=== PATIENT | female | born 1965 | race Caucasian/White ===

== ENCOUNTER → 2016-07-01 06:33 | Day surgery (SDC) | payer OTHER ==
[~2016-07-01 06:33] MED LIST: Buffered Lidocaine 1% SYR 3ML* 3 ML/SYR SYRINGE INTRADERM ONE; Bupivacaine 0.25% SDV* 30 ML ONE; Clindamycin 900 MG IVPREMIX(* 900 MG/50 ML SDV IV ONE; Dexamethasone IV* 4 MG/ML 1 ML (4 MG) ONE; DiMENhydriNATE IV* 50 MG/ML VIAL IV PUSH PRN; Famotidine IV* 10 MG/ML 2 ML (20 mg) IV ONE; Famotidine IV* 10 MG/ML 2 ML (20 mg) ONE; HYDROmorphone INJ* 1 MG/ML CARPUJECT SYRINGE IV PRN; KETAMINE HCL* 50 MG/ML 10 ML VIAL ONE; Ketorolac INJ* 30 MG/ML 1 ML VIAL ONE; Lidocaine 1% INJ* 10 MG/ML 30 ML SDV ONE; Lidocaine 2% PF * 5 ML VIAL ONE; Midazolam* 1 MG/ML 5 ML VIAL (5 MG) ONE; Ondansetron INJ* 2 MG/ML VIAL ONE; Propofol* 10 MG/ML 20 ML BTL IV PUSH ONE; fentaNYL* 50 MCG/ML 2 ML VIAL (100 MCG VIAL) ONE; oxyCODONE/Acetamin 5/325 MG* TAB ONE
[2016-07-01] MEDS: oxyCODONE/Acetamin 5/325 MG* TAB PO PRN ×2 (08:57→09:13)
[2016-07-01 09:17] VITALS: BP 100/67
--- NOTE | 2016-07-02 00:52 | OP ---
DATE OF OPERATION: 07/01/16 - [facility] DATE OF : 63 SURGEON: Jose L Benton DPM ANESTHESIOLOGIST: Heather Angel MD ANESTHESIA: MAC local. PRE-OP DIAGNOSIS: Right foot plantar fibromatosis. POST-OP DIAGNOSIS: Right foot plantar fibromatosis. OPERATIVE PROCEDURE: Release of right foot plantar fibromatosis. ESTIMATED BLOOD LOSS: Less than 10 cc. IV FLUIDS: LR 1000 cc. DRAINS: None. SPECIMENS: None. DESCRIPTION OF PROCEDURE: The patient was taken to the operating room, was placed in the supine position. Time-out was called and OR team agreed. The right foot was then blocked with 8 cc of 1% lidocaine plain at the level of the plantar medial aspect of the right foot. The foot was then prepped and draped in a sterile manner. The right foot was exsanguinated with an Esmarch bandage and the cuff was then inflated to 250 mmHg. Attention was then paid to the plantar aspect of the right foot. At the plantar medial aspect of the heel, I made a linear incision just anterior to the weightbearing surface of the plantar medial calcaneal tubercle. This was followed by sharp and blunt dissection down from the epidermis, dermis, subcutaneous tissue down to the deep fascia. Once I got into the deep fascia, I isolated the medial band of the deep fascia. I then proceeded to take a#15 blade and cutted at that level. I brought the transection down to the underlying muscle belly. Once the underlying muscle belly was in full view, the procedure was then deemed completed. The thickness of the fascia was noted at 8mm. The normal thickness is 4mm. I then irrigated the site. Closed the wound in layered anatomical fashion and injected postoperatively with 8 cc of 0.25% Marcaine plain and 8 mg of 2 cc of dexamethasone phosphate. The patient tolerated the procedure well, was discharged in stable condition. I will have her come back to my office in 3 days for postoperative check. [id number]/[facility] #: [id number] [facility]ITALIqra
== END | disposition home or self-care (01) ==
LOC: OREAST 06:33
PROVIDERS: ATTEND Podiatrist
PROC: 0JBQ0ZZ Excision of Right Foot Subcutaneous Tissue and Fascia, Open Approach (ICD-10-PCS; principal; 2016-07-01 07:45)
DX: M72.2 Plantar fascial fibromatosis (principal); E11.9 Type 2 diabetes mellitus without complications; I10 Essential (primary) hypertension; K21.9 Gastro-esophageal reflux disease without esophagitis; F32.9 Major depressive disorder, single episode, unspecified
CPT/HCPCS: A9270-GY; J1100; J1885; J2250; J2405; J2704; J3010

== ENCOUNTER 2016-08-01 14:37 | Emergency (ER) | payer OTHER ==
[2016-08-01] MEDS ORDERED: NS 0.9% 1000 ML* 1,000 ML IV ONE (15:39)
[2016-08-01 15:59] LABS: Hematocrit 36 % (35-47); Hemoglobin 11.8 g/dl (12.0-16.0); Mean Corpuscular HGB Conc 33 g/dl (31-36); Mean Corpuscular Hemoglobin 29 pg (27-31); Mean Corpuscular Volume 88 fL (80-97); Mean Platelet Volume 9 um3 (7.4-10.4); Red Blood Count 4.12 10^6/ul (4.0-5.4); Red Cell Distribution Width 13 % (10.5-15); White Blood Count 6.8 10^3/ul (3.5-10.8)
[2016-08-01] MEDS ORDERED: Acetaminophen TAB* 325 MG PO ONE (16:09)
[2016-08-01 16:18] LABS: Albumin 3.7 g/dL (3.2-5.2); BUN/Creatinine Ratio 13.5 (8-20); EGFR African American 78.5 (>60); Potassium 3.6 mmol/L (3.5-5.0); Total Bilirubin 0.2 mg/dL (0.2-1.0); Total Protein 6.7 g/dL (6.4-8.9)
--- NOTE | 2016-08-01 16:21 | RAD ---
INDICATION: Fall, altered mental status. COMPARISON: Comparison is made with a prior CT of the brain from October 12, 2015. TECHNIQUE: Contiguous axial sections of the brain were obtained from the skull base to the vertex without contrast. FINDINGS: The ventricles, cisterns and sulci are within normal limits. No significant focal abnormality or mass effect is seen. There is no evidence for hemorrhage. No significant focal osseous abnormality is seen. The visualized portion of the paranasal sinuses and mastoid air cells appear clear. IMPRESSION: NO EVIDENCE FOR ACUTE INTRACRANIAL ABNORMALITY.
--- NOTE | 2016-08-01 16:32 | RAD ---
INDICATION: Trauma, neck pain. COMPARISON: Comparison is made with a prior CT of the cervical spine from May 29, 2012. TECHNIQUE: Contiguous axial sections were obtained from the skull base through the T2 vertebra. Images were reconstructed in the sagittal and coronal planes. FINDINGS: There is straightening of the cervical spine with loss of the normal cervical lordosis. No prevertebral soft tissue swelling or fracture is seen. At the C5-C6 level there is [id number] disc space narrowing and mild posterior uncinate process spurring. No significant spinal canal or neural foraminal narrowing is seen. The remaining disc spaces appear maintained. No significant areas of spinal canal narrowing are noted. IMPRESSION: STRAIGHTENING OF THE CERVICAL SPINE, NO EVIDENCE FOR FRACTURE OR SUBLUXATION.
--- NOTE | 2016-08-01 16:57 | ED ---
I, Oh,Soohyun, scribed for Hanane Riggs MD on 08/01/16 at 1542 . Altered Mental Status - HPI Summary HPI Summary: LEVEL 5 CAVEAT secondary to AMS and memory loss. This 51 y/o female presents to ED for memory loss that was noted today. Pt was unable to recognize her daughter or any other children this morning, and concerned daughter decided to bring pt in. Daughter reports an unwitnessed fall 3 days ago where she was found on floor. Pt denies recalling the fall. Positive occipital ERICKSON and lightheaded dizziness. She does have remote history of similar episode, where she had a mechanical fall and suffered memory loss. PSHx includes left rotator cuff surgery. Primary care involves Dr. Nogueira. Pt lives with her brother. - History Of Current Complaint Chief Complaint: EDAltMentalStatus Stated Complaint: HEAD INJURY /MEMORY LOSS Time Seen by Provider: 08/01/16 15:26 Hx Obtained From: Family/Operator And Truck Driver - daughter present at bedside, Medical Records Hx From Patient Unobtainable Due To: Altered Mental Status - memory loss Onset/Duration: Still Present Timing: Constant Aggravating Factor(s): Unknown Alleviating Factor(s): Unknown Associated Signs And Symptoms: Positive: Dizziness, Headache - occipital, Recent Trauma - Allergies/Home Medications Allergies/Adverse Reactions: Allergies Allergy/AdvReac Type Severity Reaction Status Date / Time Penicillins [PCN] Allergy Unknown Rash Verified 07/06/16 15:34 Aripiprazole [From Abilify] AdvReac Intermediate TALKS FUNNY Verified 07/06/16 15:34 PMH/Surg Hx/FS Hx/Imm Hx Endocrine/Hematology History: Reports: Hx Diabetes - type II, controlled with diet, Hx Anemia - not during Denies: Hx Anticoagulant Therapy, Hx Thyroid Disease Cardiovascular History: Reports: Hx Hypertension - uses medication, well controlled, Hx Syncope Denies: Hx Congestive Heart Failure, Hx Coronary Artery Disease, Hx Embolism , Hx Pacemaker/ICD Respiratory History: Denies: Hx Asthma, Hx Chronic Obstructive Pulmonary Disease (COPD) GI History: Reports: Hx Gastroesophageal Reflux Disease Denies: Hx Ulcer History: Denies: Hx Renal Disease Musculoskeletal History: Reports: Hx Arthritis, Hx Back Problems - chronic low back pain, Hx Orthopedic Injury - left rotator cuff tear/repair, Hx Tendonitis, Other Musculoskeletal History - podiatric surgery right foot Sensory History: Reports: Hx Contacts or Glasses - glasses Denies: Hx Hearing Aid Opthamlomology History: Reports: Hx Contacts or Glasses - glasses Neurological History: Reports: Hx Headaches, Other Neuro Impairments/Disorders - POSSIBLE COMPLEX REGIONAL PAIN SYNDROME LEFT ARM Denies: Hx Dementia, Hx Seizures Psychiatric History: Reports: Hx Anxiety, Hx Depression, Hx Panic Disorder - ANXIETY Denies: Hx Eating Disorder, Hx of Violent Episodes Against Others, Hx Substance Abuse - Surgical History Surgery Procedure, Year, and Place: left rotator cuff repair Mar 2016 [facility], right rotator cuff repair 2010. CSections 1985,1987,1989 [facility]. Hysterectomy 1997 [facility]. Podiatric surgery right foot [facility] Hx Anesthesia Reactions: No - Immunization History Date of Tetanus Vaccine: UNK Date of Influenza Vaccine: UNK Infectious Disease History: Denies: Hx Hepatitis, Hx Human Immunodeficiency Virus (HIV), Traveled Outside the [place] in Last 30 Days - Family History Known Family History: Positive: Cardiac Disease - mom , of [place] 71y.o., Other - sister, BRCA 46 y.o. - Social History Alcohol Use: None Hx Substance Use: No Substance Use Type: Reports: None Substance Use Comment - Amount & Last Used: hydrocodone Hx Tobacco Use: No Smoking Status (MU): Never Smoked Tobacco Review of Systems - ROS Summary Review of Systems Summary: LEVEL 5 CAVEAT secondary to AMS and memory loss. Negative: Fever Negative: Chest Pain Negative: Shortness Of Breath Negative: Abdominal Pain Neurological: Other - Positive for memory loss. Positive lightheaded dizziness Positive: Headache - occipital ERICKSON All Other Systems Reviewed And Are Negative: No Physical Exam Triage Information Reviewed: Yes Vital Signs On Initial Exam: Initial Vitals Pulse Resp BP Pulse Ox 92 16 139/87 98 08/01/16 14:39 08/01/16 14:39 08/01/16 14:39 08/01/16 14:39 Vital Signs Reviewed: Yes Appearance: Positive: Well-Appearing, No Pain Distress Skin: Positive: Warm, Skin Color Reflects Adequate Perfusion, Dry Head/Face: Positive: Normal Head/Face Inspection Eyes: Positive: EOMI, KYLAH Neck: Positive: Supple, Nontender Respiratory/Lung Sounds: Positive: Clear to Auscultation, Breath Sounds Present Cardiovascular: Positive: RRR, Pulses are Symmetrical in both Upper and Lower Extremities Abdomen Description: Positive: Nontender, No Organomegaly Musculoskeletal: Positive: Strength/ROM Intact Neurological: Positive: Sensory/Motor Intact, Alert, Oriented to Person Place, Time, CN Intact II-III, Other - memory loss - unable to recall what she had for her breakfast this morning Psychiatric: Positive: Affect/Mood Appropriate AVPU Assessment: Alert Diagnostics - Vital Signs Vital Signs Pulse Resp BP Pulse Ox 08/01/16 14:39 92 16 139/87 98 - Laboratory Lab Results: Lab Results 08/01/16 08/01/16 08/01/16 Range/Units 15:50 15:50 15:50 WBC 6.8 (3.5-10.8) 10^3/ul RBC 4.12 (4.0-5.4) 10^6/ul Hgb 11.8 L (12.0-16.0) g/dl Hct 36 (35-47) % MCV 88 (80-97) fL MCH 29 (27-31) pg MCHC 33 (31-36) g/dl RDW 13 (10.5-15) % Plt Count 228 (150-450) 10^3/ul MPV 9 (7.4-10.4) um3 Neut % (Auto) 45.9 (38-83) % Lymph % (Auto) 43.3 (25-47) % [place] % (Auto) 7.1 (1-9) % Eos % (Auto) 2.8 (0-6) % Baso % (Auto) 0.9 (0-2) % Absolute Neuts (auto) 3.1 (1.5-7.7) 10^3/ul Absolute Lymphs (auto) 3.0 (1.0-4.8) 10^3/ul Absolute Monos (auto) 0.5 (0-0.8) 10^3/ul Absolute Eos (auto) 0.2 (0-0.6) 10^3/ul Absolute Basos (auto) 0.1 (0-0.2) 10^3/ul Absolute Nucleated RBC 0 10^3/ul Nucleated RBC % 0.1 ESR Pending Sodium 138 (133-145) mmol/L Potassium 3.6 (3.5-5.0) mmol/L Chloride 107 (101-111) mmol/L Carbon Dioxide 25 (22-32) mmol/L Anion Gap 6 (2-11) mmol/L BUN 13 (6-24) mg/dL Creatinine 0.96 H (0.51-0.95) mg/dL Est GFR ( Amer) 78.5 (>60) Est GFR (Non-Af Amer) 61.0 (>60) BUN/Creatinine Ratio 13.5 (8-20) Glucose 123 H (70-100) mg/dL Lactic Acid 1.3 (0.5-2.0) mmol/L Calcium 9.0 (8.6-10.3) mg/dL Total Bilirubin 0.20 (0.2-1.0) mg/dL AST 25 (13-39) U/L ALT 29 (7-52) U/L Alkaline Phosphatase 63 (34-104) U/L Total Protein 6.7 (6.4-8.9) g/dL Albumin 3.7 (3.2-5.2) g/dL Globulin 3.0 (2-4) g/dL Albumin/Globulin Ratio 1.2 (1-3) Result Diagrams: 08/01/16 15:50 08/01/16 15:50 Lab Statement: Any lab studies that have been ordered have been reviewed, and results considered in the medical decision making process. - CT Brain CT Interpretation: No Acute Changes CT Interpretation Completed By: Radiologist C-spine CT Interpretation: No Acute Changes - STRAIGHTENING OF THE CERVICAL SPINE, NO EVIDENCE FOR FRACTURE OR SUBLUXATION. CT Interpretation Completed By: Radiologist - EKG 1541 Cardiac Rate: NL EKG Rhythm: Sinus Rhythm ST Segment: Normal EKG Interpretation: Nonspecific T-wave changes EKG Comparison: No Significant Change - 10/12/2015 Altered Mental Statu Course/Dx - Course Course Of Treatment: 51 yo female with memory issues since a fall on Monday. the fall was unwitnessed but heard by her brother, pt remembers just after the fall but did not recognize her daughter or grand children today and can not remember the weekend. her ct brain is negative and labs are negative. her neuro exam is otherwise normal. She will be admitted to medicine and the case has been discussed with Dr. Pinto - Diagnoses Discharge Diagnoses: Concussion, Altered mental status - Provider Notifications Discussed Care Of Patient With: Dr. Pinto (Hospitalist) at 1619 PM Discharge - Discharge Plan Condition: Stable Disposition: ADMITTED TO [facility] documentation as recorded by the Arjun drew Soohyun accurately reflects the service I personally performed and the decisions made by me, Hanane Riggs MD.
[2016-08-01 17:28] LABS: Erythrocyte Sed Rate 28 mm/Hr (0-30)
--- NOTE | 2016-08-01 18:26 | CONSULT ---
Subjective Date of Service: 08/01/16 Interval History: 51 yo F with hx of HTN, DM, GERD, ?complex regional pain syndrome p/w memory problems after recent fall with head-injury. Patient unable to give reliable history, obtained mostly from daughter. 3 days ago in the evening the patient fell down the stairs in her home (16 steps ) injuring her shoulder and hitting her head. The fall was not witnessed but was heard by the patient's brother who found her shortly afterwards. She had no LOC, no reported seizure activity. The patient does not recall the fall. Since then she has been having trouble with memory, reportedly did not recognize her daughter or remember her name, did not remember her dogs at home but subsequently does now. The patient has had some dizziness, no nausea, or vomiting. Says for the past few days she has been resting at home. Has some R shoulder pain and headache but no other complaints at the moment. Daughter reports that 10-11 years ago the patient had a similar episode after a fall. Symptoms eventually resolved and she thought it may have been attributed to "stress". Family History: Findings - M - HTN Social History: Findings - Denies alcohol, tobacco or drug use. Lives home with brother Past Medical History: Findings - HTN, DM, GERD, CRPS Review of Systems - Measurements Intake and Output: Intake and Output Last 24 Hours 07/30/16 07/31/16 08/01/16 08/02/16 06:59 06:59 06:59 06:59 Weight 72.575 kg - Review of Systems General Comments: Unable to obtain due to amnesia Constitutional Symptoms: Positive: Fever Objective Vital Signs 08/01/16 08/01/16 14:39 15:31 Temperature 98.4 F Pulse Rate 92 92 Respiratory 16 16 Rate Blood Pressure 139/87 139/87 (mmHg) O2 Sat by Pulse 98 98 Oximetry Oxygen Devices in Use Now: None Appearance: Middle-aged, AAF, laying in bed in NAD Eyes: No Scleral Icterus, PERRLA Ears/Nose/Mouth/Throat: Mucous Membranes Moist Neck: NL Appearance and Movements; NL JVP Respiratory: Symmetrical Chest Expansion and Respiratory Effort, Clear to Auscultation Cardiovascular: NL Sounds; No Murmurs; No JVD, RRR Abdominal: NL Sounds; No Tenderness; No Distention Lymphatic: No Cervical Adenopathy Extremities: - - Slight RUE ecchymosis, impaired ROM due to pain in B/L UEs ( RUE from this injury, LUE from rotator cuff problems) Skin: No Rash or Ulcers, - Neurological: - - Alert, oriented to self (looked at ID), place "hospital, could not say name". Could not tell me city, address. Was able to name her daughter at the bedside Result Diagrams: 08/01/16 15:50 08/01/16 15:50 Assessment/Plan - Billing Memory difficulties after head trauma likely due to concussion in a 51 yo F with hx of HTN, DM, GERD, arthritis, CRPS. Patient's symptoms are likely due to concussion from significant head trauma she sustained falling down [address] of the head and CT of the c-spine are both normal. I think the best treatment at this point for the patient is bedrest and a quiet atmosphere which she is more likely to get at home than here in the hospital. The patient was recently started on long acting morphine ( 07/19) but did not have issues with it prior to the fall. I asked the daughter to try to hold off on any long acting pain medications the patient is on at home and instead treat only with short-acting if necessary as this will not help her confusion/memory problems. Should follow-up with PCP, Dr. Nogueira, later this week or early next week to track the patient's progress.
[2016-08-01 18:43] VITALS: BP 123/77
[2016-08-01 18:49] LABS: Urine Bilirubin Negative (Negative); Urine Glucose Negative (Negative); Urine Nitrite Negative (Negative)
--- NOTE | 2016-08-01 19:01 | RAD ---
INDICATION: Right humerus injury. TECHNIQUE: 2 views of the right humerus were obtained. FINDINGS: The bones are normal alignment. No fracture is seen. Postsurgical changes are noted in the proximal humerus. IMPRESSION: NO EVIDENCE FOR FRACTURE.
--- NOTE | 2016-08-01 19:01 | RAD ---
INDICATION: Right shoulder injury. TECHNIQUE: 3 views of the right shoulder were obtained. FINDINGS: The bones are normal alignment. There is a surgical screw present within the humeral head. There is deformity of the humerus in the region of the greater tuberosity likely chronic although a nondisplaced fracture cannot be excluded. Joint spaces appear maintained. IMPRESSION: DEFORMITY OF THE PROXIMAL HUMERUS IN THE REGION OF THE GREATER TUBEROSITY LIKELY CHRONIC ALTHOUGH A NONDISPLACED FRACTURE CANNOT BE RULED OUT.
[2016-08-01 19:15] LABS: Benzodiazepine Urine Screen Presumptive Positive (None Detect)
--- NOTE | 2016-08-01 20:21 | ED ---
I, Warner Díaz, scribed for Hanane Riggs MD on 08/01/16 at 1836 . Progress - Progress Note Progress Note: With advise from hospitalist Dr. Pinto, Pt is discharged with diagnosis of concussion. Pt is noted with tenderness over right tuberosity. Right shoulder and humerus X- rays were ordered. - Results/Orders Results/Orders: Right Shoulder X-ray -- DEFORMITY OF THE PROXIMAL HUMERUS IN THE REGION OF THE GREATER TUBEROSITY LIKELY CHRONIC ALTHOUGH A NONDISPLACED FRACTURE CANNOT BE RULED OUT. Right Humerus X-ray -- Negative fx. Re-Evaluation - Re-Evaluation First Eval Re-Evaluation Time: 19:04 Comment: MD in room to update pt and daughter on right shoulder X-ray result with possible hairline fracture. Daughter confirms that the pt has been tender at right shoulder. Pt is referred to Dr. Wilcox. Course/Dx - Course Course Of Treatment: 51 yo female with memory issues since a fall on Monday. the fall was unwitnessed but heard by her brother, pt remembers just after the fall but did not recognize her daughter or grand children today and can not remember the weekend. her ct brain is negative and labs are negative. her neuro exam is otherwise normal. She will be admitted to medicine and the case has been discussed with Dr. Pinto. Pt was subsequently evaluated by Dr. Peter Traore who diagnosed the pt with concussion and felt her safe for discharge. Pt sent home in an arm immobilizer for the non displaced fx for the great tubercle of the humerus and will f/u with her pmd and with her othopedist - Diagnoses Provider Diagnoses: Concussion, Altered mental status The documentation as recorded by the [email or web address] Soohyun accurately reflects the service I personally performed and the decisions made by me, Hanane Riggs MD.
== END 2016-08-01 18:42 | disposition home or self-care (01) ==
LOC: ED 14:37
DX: S06.0X0A Concussion without loss of consciousness, initial encounter (principal); R41.82 Altered mental status, unspecified; W19.XXXA Unspecified fall, initial encounter; Y93.9 Activity, unspecified; Y92.9 Unspecified place or not applicable
CPT/HCPCS: 36415; 70450; 72125; 80053; 80307; 81003; 83605; 85025; 85652; 86850; 86900; 86901; 93005; 99283; A9270-GY

== ENCOUNTER 2016-12-29 13:01 | Emergency (ER) | payer OTHER ==
[2016-12-29] MEDS ORDERED: NS 0.9% 1000 ML* 1,000 ML IV ONE (14:14)
--- NOTE | 2016-12-29 14:50 | RAD ---
HISTORY: Syncope, fall, altered mental status COMPARISONS: August 01, 2016 TECHNIQUE: Multiple contiguous axial CT scans were obtained of the cervical spine without intravenous contrast, with coronal and sagittal multiplanar reformations. FINDINGS: BRAIN: The visualized brain is unremarkable CENTRAL CANAL: Evaluation of the central canal is limited on CT technique, however there is no obvious canalicular mass or epidural hemorrhage. ALIGNMENT: The alignment is normal, without subluxation or dislocation. VERTEBRAL BODIES: There is anterolateral marginal osteophyte formation most pronounced at C5-C6 JOINTS: There is uncovertebral hypertrophy most pronounced at C5-C6. MUSCULATURE: Unremarkable INTERVERTEBRAL DISCS: There is diffuse loss of intervertebral disc height. AXIAL IMAGES: There is mild right neural foraminal area C5-C6. There is no osseous central canal stenosis. SOFT TISSUES: The visualized soft tissues of the neck are unremarkable. The prevertebral fat stripe is preserved. OTHER: None. IMPRESSION: MILD DEGENERATIVE DISC DISEASE AND OSTEOARTHRITIS. NO ACUTE OSSEOUS INJURY TO THE CERVICAL SPINE
[2016-12-29 14:51] LABS: Hematocrit 37 % (35-47); Mean Corpuscular HGB Conc 33 g/dl (31-36); Mean Corpuscular Hemoglobin 29 pg (27-31); Mean Corpuscular Volume 89 fL (80-97); Mean Platelet Volume 9 um3 (7.4-10.4); Red Blood Count 4.11 10^6/ul (4.0-5.4); Red Cell Distribution Width 13 % (10.5-15); White Blood Count 6.7 10^3/ul (3.5-10.8)
--- NOTE | 2016-12-29 14:56 | RAD ---
INDICATION: Syncope COMPARISON: CT brain August 01, 2016 TECHNIQUE: Noncontrast axial source images were acquired from the skull base to the vertex. FINDINGS: Ventricles/sulci: The ventricles and cisterns are normal in size and configuration for age. Brain parenchyma: There is no focal parenchymal finding, evidence of intracranial mass, or intracranial mass effect. Intracranial hemorrhage:None. Extra-axial spaces: There are no abnormal extra axial fluid collections or evidence of extra-axial mass. Calvarium: There is no calvarial fracture or other calvarial abnormality. Scalp: There is no evidence of scalp or extracalvarial soft tissue abnormality. Paranasal sinuses/mastoid: The paranasal sinuses and mastoid air cells are clear. Other: None. IMPRESSION: No acute intracranial findings or interval changes
[2016-12-29 15:06] LABS: ALT 18 U/L (7-52); AST 18 U/L (13-39); Albumin 3.8 g/dL (3.2-5.2); Alkaline Phosphatase 69 U/L (34-104); Ammonia 33 mol/L (16-53); Anion Gap 4 mmol/L (2-11); BUN/Creatinine Ratio 11.4 (8-20); Blood Urea Nitrogen 12 mg/dL (6-24); CO2 Carbon Dioxide 28 mmol/L (22-32); Calcium 9.3 mg/dL (8.6-10.3); Chloride 106 mmol/L (101-111); EGFR African American 70.8 (>60); Globulin 3.8 g/dL (2-4); Glucose 127 mg/dL (70-100); Potassium 3.8 mmol/L (3.5-5.0); Sodium 138 mmol/L (133-145); Total Protein 7.6 g/dL (6.4-8.9)
[2016-12-29 15:11] LABS: B Type Natriuretic Peptide 109 pg/mL
[2016-12-29 15:32] LABS: Alcohol < 10 mg/dL (<10)
[2016-12-29 15:35] LABS: TSH (Thyroid Stimulating Horm) 2.33 mcIU/mL (0.34-5.60)
--- NOTE | 2016-12-29 16:19 | RAD ---
Indication: Syncope. 2 views of the chest are reviewed and compared to previous exam dated October 12, 2015. No mediastinal shift is noted. Heart is of normal size and configuration. Lungs are clear. IMPRESSION: No active cardiopulmonary disease is identified.
--- NOTE | 2016-12-29 16:29 | RAD ---
INDICATION: Left greater than right bilateral shoulder pain COMPARISON: Right shoulder radiograph August 11, 2016 TECHNIQUE: 4 views of each shoulder were obtained. FINDINGS: A surgical medullary screw is seen overlying the right humeral head unchanged from the previous radiograph. The bones are otherwise adequately corticated and appropriately aligned. No radiographically apparent fracture or dislocation is seen. IMPRESSION: No radiographically apparent acute fracture or dislocation. If the patient's symptoms persist, follow-up imaging is recommended.
[2016-12-29 16:32] LABS: Urine Bilirubin Negative (Negative); Urine Glucose Negative (Negative); Urine Nitrite Negative (Negative)
[2016-12-29 16:46] LABS: Benzodiazepine Urine Screen Presumptive Positive (None Detect)
[2016-12-29 17:35] VITALS: BP 107/83
--- NOTE | 2016-12-29 18:40 | ED ---
James Lua Angela, scribed for Hernán Pedersen MD on 12/29/16 at 1444 . Altered Mental Status - HPI Summary HPI Summary: This pt is a 51 y/o female BIBA presenting to [facility] for AMS s/p fall and LOC. Per EMS, a neighbor witnessed the pt fall outside of her house. Pt c/o headache and low back pain. Additionally notes her left shoulder is very painful. Per brother, pt was feeling well upon waking up today. Per brother, pt has had these AMS symptoms a couple of times this year. Brother reports that she has forgetfulness episodes and temporary amnesia. Pt's PCP: Dr. Nogueira. Pt has had bilateral shoulder surgery. HPI IS LIMITED DUE TO LEVEL 5 CAVEAT - AMS - History Of Current Complaint Chief Complaint: EDAltMentalStatus Stated Complaint: FALL/AMS Hx Obtained From: Patient, Family/Physician/Ophthalmologist - brother and son Hx From Patient Unobtainable Due To: Altered Mental Status Onset/Duration: Still Present Timing: Lasting Hours Aggravating Factor(s): Nothing Alleviating Factor(s): Nothing Associated Signs And Symptoms: Positive: Headache - neck pain, shoulder pain, Recent Trauma - fall today outside her house - Allergies/Home Medications Allergies/Adverse Reactions: Allergies Allergy/AdvReac Type Severity Reaction Status Date / Time Penicillins [PCN] Allergy Unknown Rash Verified 09/28/16 15:06 Aripiprazole [From Abilify] AdvReac Intermediate TALKS FUNNY Verified 09/28/16 15:06 PMH/Surg Hx/FS Hx/Imm Hx Endocrine/Hematology History: Reports: Hx Diabetes - type II, controlled with diet, Hx Anemia - not during Denies: Hx Anticoagulant Therapy, Hx Thyroid Disease Cardiovascular History: Reports: Hx Hypertension - uses medication, well controlled, Hx Syncope Denies: Hx Congestive Heart Failure, Hx Coronary Artery Disease, Hx Embolism , Hx Pacemaker/ICD Respiratory History: Denies: Hx Asthma, Hx Chronic Obstructive Pulmonary Disease (COPD) GI History: Reports: Hx Gastroesophageal Reflux Disease Denies: Hx Ulcer History: Denies: Hx Renal Disease Musculoskeletal History: Reports: Hx Arthritis, Hx Back Problems - chronic low back pain, Hx Orthopedic Injury - left rotator cuff tear/repair, Hx Tendonitis, Other Musculoskeletal History - podiatric surgery right foot Sensory History: Reports: Hx Contacts or Glasses - glasses Denies: Hx Hearing Aid Opthamlomology History: Reports: Hx Contacts or Glasses - glasses Neurological History: Reports: Hx Headaches, Other Neuro Impairments/Disorders - POSSIBLE COMPLEX REGIONAL PAIN SYNDROME LEFT ARM Denies: Hx Dementia, Hx Seizures Psychiatric History: Reports: Hx Anxiety, Hx Depression, Hx Panic Disorder - ANXIETY Denies: Hx Eating Disorder, Hx of Violent Episodes Against Others, Hx Substance Abuse - Surgical History Surgery Procedure, Year, and Place: left rotator cuff repair Mar 2016 [facility] [place], right rotator cuff repair 2010. [facility] 1985,1987,1989 [facility]. Hysterectomy 1997 [facility] [place]. Podiatric surgery right foot [facility] Hx Anesthesia Reactions: No - Immunization History Date of Tetanus Vaccine: UNK Date of Influenza Vaccine: UNK Infectious Disease History: Denies: Hx Hepatitis, Hx Human Immunodeficiency Virus (HIV), Traveled Outside the [place] in Last 30 Days - Family History Known Family History: Positive: Cardiac Disease - mom , of [place] 71y.o., Other - sister, BRCA 46 y.o. - Social History Alcohol Use: None Hx Substance Use: No Substance Use Type: Reports: None Substance Use Comment - Amount & Last Used: hydrocodone Hx Tobacco Use: No Smoking Status (MU): Never Smoked Tobacco Have You Smoked in the Last Year: No Review of Systems Positive: Other - confusion, AMS. Negative: Fever, Chills ENT: Negative Positive: Other - back pain, and shoulder pain Skin: Negative Positive: Headache. Negative: Weakness, Paresthesia, Numbness All Other Systems Reviewed And Are Negative: Yes - Comments Additional Review of Systems Comments: ROS IS LIMITED DUE TO LEVEL 5 CAVEAT - AMS. Physical Exam - Summary Physical Exam Summary: VITAL SIGNS: Reviewed. GENERAL: Patient is a well-developed and nourished female who is lying comfortable in the stretcher. Patient is not in any acute respiratory distress. HEAD AND FACE: No signs of trauma. No ecchymosis, hematomas or skull depressions. No sinus tenderness. EYES: PERRLA, EOMI x 2, No injected conjunctiva, no nystagmus. EARS: Hearing grossly intact. Ear canals and tympanic membranes are within normal limits. MOUTH: Oropharynx within normal limits. NECK: Supple, trachea is midline, no adenopathy, no JVD, no carotid bruit, no c- spine tenderness, neck with full ROM. There is no neck tenderness. CHEST: Symmetric, no tenderness at palpation LUNGS: Clear to auscultation bilaterally. No wheezing or crackles. CVS: Regular rate and rhythm, S1 and S2 present, no murmurs or gallops appreciated. ABDOMEN: Soft, non-tender. No signs of distention. No rebound no guarding, and no masses palpated. Bowel sounds are normal. EXTREMITIES: No edema, no cyanosis or clubbing. There is bilateral shoulder tenderness to palpation. NEURO: Alert and oriented x 3. No acute neurological deficits. Speech is normal and follows commands. SKIN: Dry and warm GCS: 15 Triage Information Reviewed: Yes Vital Signs On Initial Exam: Initial Vitals Temp Pulse Resp BP Pulse Ox 99.1 F 80 20 130/91 100 12/29/16 14:38 12/29/16 14:38 12/29/16 14:38 12/29/16 14:38 12/29/16 14:38 Vital Signs Reviewed: Yes Completion Of Physical Exam Limited Due To: Altered Mental Status, Level 5 Diagnostics - Vital Signs Vital Signs Temp Pulse Resp BP Pulse Ox 12/29/16 17:35 98.6 F 79 19 107/83 12/29/16 15:30 79 15 131/82 100 12/29/16 15:00 75 18 125/76 98 12/29/16 14:46 77 13 99 12/29/16 14:45 77 13 99 12/29/16 14:41 99 12/29/16 14:38 99.1 F 80 20 130/91 100 - Laboratory Lab Results: Lab Results 12/29/16 12/29/16 12/29/16 Range/Units 14:42 14:42 14:42 WBC 6.7 (3.5-10.8) 10^3/ul RBC 4.11 (4.0-5.4) 10^6/ul Hgb 12.0 (12.0-16.0) g/dl Hct 37 (35-47) % MCV 89 (80-97) fL MCH 29 (27-31) pg MCHC 33 (31-36) g/dl RDW 13 (10.5-15) % Plt Count 224 (150-450) 10^3/ul MPV 9 (7.4-10.4) um3 Neut % (Auto) 52.2 (38-83) % Lymph % (Auto) 40.3 (25-47) % Bennett % (Auto) 4.8 (1-9) % Eos % (Auto) 1.6 (0-6) % Baso % (Auto) 1.1 (0-2) % Absolute Neuts (auto) 3.5 (1.5-7.7) 10^3/ul Absolute Lymphs (auto) 2.7 (1.0-4.8) 10^3/ul Absolute Monos (auto) 0.3 (0-0.8) 10^3/ul Absolute Eos (auto) 0.1 (0-0.6) 10^3/ul Absolute Basos (auto) 0.1 (0-0.2) 10^3/ul Absolute Nucleated RBC 0 10^3/ul Nucleated RBC % 0 Sodium 138 (133-145) mmol/L Potassium 3.8 (3.5-5.0) mmol/L Chloride 106 (101-111) mmol/L Carbon Dioxide 28 (22-32) mmol/L Anion Gap 4 (2-11) mmol/L BUN 12 (6-24) mg/dL Creatinine 1.05 H (0.51-0.95) mg/dL Est GFR ( Amer) 70.8 (>60) Est GFR (Non-Af Amer) 55.0 (>60) BUN/Creatinine Ratio 11.4 (8-20) Glucose 127 H (70-100) mg/dL Lactic Acid (0.5-2.0) mmol/L Calcium 9.3 (8.6-10.3) mg/dL Magnesium 2.0 (1.9-2.7) mg/dL Total Bilirubin 0.30 (0.2-1.0) mg/dL AST 18 (13-39) U/L ALT 18 (7-52) U/L Alkaline Phosphatase 69 (34-104) U/L Ammonia 33 (16-53) mol/L Troponin I 0.00 (<0.04) ng/mL B-Natriuretic Peptide 109 H ( - 100) pg/mL Total Protein 7.6 (6.4-8.9) g/dL Albumin 3.8 (3.2-5.2) g/dL Globulin 3.8 (2-4) g/dL Albumin/Globulin Ratio 1.0 (1-3) TSH 2.33 (0.34-5.60) mcIU/mL Urine Color Urine Appearance Urine pH (5-9) Ur Specific [place] (1.010-1.030) Urine Protein (Negative) Urine Ketones (Negative) Urine Blood (Negative) Urine Nitrate (Negative) Urine Bilirubin (Negative) Urine Urobilinogen (Negative) Ur Leukocyte Esterase (Negative) Urine Glucose (Negative) Urine Opiates Screen (None Detect) Ur Barbiturates Screen (None Detect) Ur Phencyclidine Scrn (None Detect) Ur Amphetamines Screen (None Detect) U Benzodiazepines Scrn (None Detect) Urine Cocaine Screen (None Detect) U Cannabinoids Screen (None Detect) Serum Alcohol < 10 (<10) mg/dL 12/29/16 12/29/16 12/29/16 Range/Units 14:42 16:15 16:15 WBC (3.5-10.8) 10^3/ul RBC (4.0-5.4) 10^6/ul Hgb (12.0-16.0) g/dl Hct (35-47) % MCV (80-97) fL MCH (27-31) pg MCHC (31-36) g/dl RDW (10.5-15) % Plt Count (150-450) 10^3/ul MPV (7.4-10.4) um3 Neut % (Auto) (38-83) % Lymph % (Auto) (25-47) % Bennett % (Auto) (1-9) % Eos % (Auto) (0-6) % Baso % (Auto) (0-2) % Absolute Neuts (auto) (1.5-7.7) 10^3/ul Absolute Lymphs (auto) (1.0-4.8) 10^3/ul Absolute Monos (auto) (0-0.8) 10^3/ul Absolute Eos (auto) (0-0.6) 10^3/ul Absolute Basos (auto) (0-0.2) 10^3/ul Absolute Nucleated RBC 10^3/ul Nucleated RBC % Sodium (133-145) mmol/L Potassium (3.5-5.0) mmol/L Chloride (101-111) mmol/L Carbon Dioxide (22-32) mmol/L Anion Gap (2-11) mmol/L BUN (6-24) mg/dL Creatinine (0.51-0.95) mg/dL Est GFR ( Amer) (>60) Est GFR (Non-Af Amer) (>60) BUN/Creatinine Ratio (8-20) Glucose (70-100) mg/dL Lactic Acid 1.3 (0.5-2.0) mmol/L Calcium (8.6-10.3) mg/dL Magnesium (1.9-2.7) mg/dL Total Bilirubin (0.2-1.0) mg/dL AST (13-39) U/L ALT (7-52) U/L Alkaline Phosphatase (34-104) U/L Ammonia (16-53) mol/L Troponin I (<0.04) ng/mL B-Natriuretic Peptide ( - 100) pg/mL Total Protein (6.4-8.9) g/dL Albumin (3.2-5.2) g/dL Globulin (2-4) g/dL Albumin/Globulin Ratio (1-3) TSH (0.34-5.60) mcIU/mL Urine Color Yellow Urine Appearance Clear Urine pH 5 (5-9) Ur Specific [place] 1.005 L (1.010-1.030) Urine Protein Negative (Negative) Urine Ketones Negative (Negative) Urine Blood Negative (Negative) Urine Nitrate Negative (Negative) Urine Bilirubin Negative (Negative) Urine Urobilinogen Negative (Negative) Ur Leukocyte Esterase Negative (Negative) Urine Glucose Negative (Negative) Urine Opiates Screen Presumptive positive H (None Detect) Ur Barbiturates Screen None detected (None Detect) Ur Phencyclidine Scrn None detected (None Detect) Ur Amphetamines Screen None detected (None Detect) U Benzodiazepines Scrn Presumptive positive H (None Detect) Urine Cocaine Screen None detected (None Detect) U Cannabinoids Screen None detected (None Detect) Serum Alcohol (<10) mg/dL Result Diagrams: 12/29/16 14:42 12/29/16 14:42 Lab Statement: Any lab studies that have been ordered have been reviewed, and results considered in the medical decision making process. - Radiology Chest XR Xray Interpretation: No Acute Changes - IMPRESSION: No acute cardiopulmonary disease is identified. ED physician has reviewed this radiology report and agrees. Radiology Interpretation Completed By: Radiologist Shoulder XR Xray Interpretation: No Acute Changes - IMPRESSION: No radiographically apparent acute fracture or dislocation. If the patient's symptoms persist, follow-up imaging is recommeneded. ED physician has reviewed this radiology report and agrees. Radiology Interpretation Completed By: Radiologist - CT Brain CT CT Interpretation: No Acute Changes - IMPRESSION: No acute intracranial findings or interval changes. ED physician has reviewed this radiology report and agrees. CT Interpretation Completed By: Radiologist Cervical spine CT CT Interpretation: Positive (See Comments) - IMPRESSION: Mild degenerative disc disease and osteoarthritis. No acute osseous injury to the cervical spine. ED physician has reviewed this radiology report and agrees. CT Interpretation Completed By: Radiologist - EKG 1454 Cardiac Rate: NL - 70 bpm EKG Rhythm: Sinus Rhythm ST Segment: Normal EKG Interpretation: Normal axis. No ST elevation. Altered Mental Statu Course/Dx - Course Assessment/Plan: This pt is a 51 y/o female BIBA presenting to [facility] for AMS s/ p fall and LOC. Per EMS, a neighbor witnessed the pt fall outside of her house. Pt c/o headache and low back pain. Additionally notes her left shoulder is very painful. Per brother, pt was feeling well upon waking up today. Per brother, pt has had these AMS symptoms a couple of times this year. Brother reports that she has forgetfulness episodes and temporary amnesia. Pt's PCP: Dr. Nogueira. Pt has had bilateral shoulder surgery. HPI IS LIMITED DUE TO LEVEL 5 CAVEAT - AMS. Test results are without any significant abnormalities. In the examination of the pt, the pt was alert and oriented x3, without any acute or focal neurological deficits. UA is negative for UTI. Toxicology is positive for opiates and benzodiazepines. Head CT is negative for an acute pathology. Chest XR is negative for acute pathology. XR of shoulders shows no acute fracture or dislocation. In the ED course, the pt was observed, and was alert and oriented x3. Pt is tolerating PO intake without any nausea and vomiting. I believe her symptoms are secondary to opiates and benzodiazepines abuse. Therefore, the pt will be discharged home with follow up from her PCP. At discharge, the pt is ambulating with a steady gait. - Diagnoses Differential Diagnosis/HQI/PQRI: Hypoglycemia, Intoxication, Metabolic Disorder , Postictal State, Seizure, TIA Discharge Diagnoses: Episode of syncope, Polysubstance abuse Discharge - Discharge Plan Condition: Stable Disposition: HOME Patient Education Materials: Syncope (ED), Polysubstance Abuse (ED) Referrals: Gera Nogueira MD [Primary Care Provider] - Additional Instructions: Please follow up with your primary care provider. The documentation as recorded by the James drew Angela accurately reflects the service I personally performed and the decisions made by me, Hernán Pedersen MD.
== END 2016-12-29 17:35 | disposition home or self-care (01) ==
LOC: ED 13:01
DX: R55 Syncope and collapse (principal); F19.10 Other psychoactive substance abuse, uncomplicated; K21.9 Gastro-esophageal reflux disease without esophagitis; F41.9 Anxiety disorder, unspecified; Z88.0 Allergy status to penicillin; E11.9 Type 2 diabetes mellitus without complications; I10 Essential (primary) hypertension
CPT/HCPCS: 36415; 70450; 71020; 72125; 80053; 80307; 80320; 81003; 82140; 83605; 83735; 83880; 84443; 84484; 85025; 93005; 96360; 99283; G0480

== ENCOUNTER 2017-04-04 19:25 | Inpatient (IN) | payer OTHER ==
--- NOTE | 2017-04-04 20:40 | RAD ---
INDICATION: Seizure. COMPARISON: Comparison is made with a prior CT of the brain from December 29, 2016. TECHNIQUE: Contiguous axial sections of the brain were obtained from the skull base to the vertex without contrast. FINDINGS: The ventricles, cisterns and sulci are within normal limits. No significant focal abnormality or mass effect is seen. There is no evidence for hemorrhage. No significant focal osseous abnormality is seen. The visualized portion of the paranasal sinuses and mastoid air cells appear clear. IMPRESSION: NO EVIDENCE FOR ACUTE INTRACRANIAL ABNORMALITY.
[2017-04-04 21:05] LABS: Urine Appearance Clear; Urine Blood Negative (Negative); Urine Color Yellow; Urine Ketones Negative (Negative); Urine Protein Negative (Negative); Urine Specific Gravity 1.014 (1.010-1.030); Urine Urobilinogen Negative (Negative)
[2017-04-04] MEDS ORDERED: levETIRAcetam IV* 1,000 MG in NS 0.9% 100 ML* 100 ML IVPB ONE (21:05)
[2017-04-04 21:12] LABS: ABS Basophils 0.1 10^3/ul (0-0.2); ABS Eosinophils 0.1 10^3/ul (0-0.6); ABS Lymphocytes 3.4 10^3/ul (1.0-4.8); ABS Monocytes 0.3 10^3/ul (0-0.8); ABS Neutrophils 2.9 10^3/ul (1.5-7.7); ABS Nucleated RBC 0 10^3/ul; Eosinophil % 1.4 % (0-6); Hematocrit 38 % (35-47); Hemoglobin 12.5 g/dl (12.0-16.0); Lymphocyte % 50.2 % (25-47); Mean Corpuscular HGB Conc 33 g/dl (31-36); Mean Corpuscular Hemoglobin 29 pg (27-31); Mean Corpuscular Volume 88 fL (80-97); Mean Platelet Volume 9 um3 (7.4-10.4); Nucleated Red Blood Cells % 0; Platelet Count 220 10^3/ul (150-450); Red Blood Count 4.31 10^6/ul (4.0-5.4); Red Cell Distribution Width 13 % (10.5-15); White Blood Count 6.7 10^3/ul (3.5-10.8)
[2017-04-04 21:20] LABS: INR 0.88 (0.77-1.02)
[2017-04-04 21:27] LABS: EGFR Non-African American 57.3 (>60)
--- NOTE | 2017-04-04 21:37 | ED ---
Kevin Lua Tecjoon, scribjamel for Mary Keenan MD on 04/04/17 at 2044 . Neurological HPI - HPI Summary HPI Summary: This patient is a 52 year old female BIBA to [facility] accompanied by daughter with a chief complaint of episodes of absence seizures since 3 days ago. Patients daughter states she has no recollection of whats going on and spaces out for periods of 5-15 minutes. During episodes, she is unable to respond. This occurs 2-3 times a day. During time of visit, patient is mildly confused, talking normally, but unable to recall current year and home address. Patient rates her current pain at 3/10. Symptoms aggravated by nothing. Symptoms alleviated by nothing. Patient additionally reports shoulder pain from previous injury. Patient denies dizziness. 5 months ago, patient suffered a bad concussion and has seen a neurologist as an outpatient before onset of sx. - History of Current Complaint Chief Complaint: EDSeizure Stated Complaint: RECENT SEIZURES Time Seen by Provider: 04/04/17 19:55 Hx Obtained From: Patient, Family/Acid Pumper - daughter Onset/Duration: Started days ago, Still Present Timing: Intermittent Episodes Lasting: - 5-15 minutes Pain Intensity: 3 Pain Scale Used: 0-10 Numeric Character: Impaired Speech, Confusion Syncope Context: Witnessed - by daughter Seizure Character: Generalized - absense Aggravating: Nothing Alleviating: Nothing Associated Signs and Symptoms: Positive: Memory Loss, Impaired Speech, Trauma: Remote - concussion 5 months ago. Negative: Dizziness - Allergy/Home Medications Allergies/Adverse Reactions: Allergies Allergy/AdvReac Type Severity Reaction Status Date / Time Penicillins [PCN] Allergy Unknown Rash Verified 02/08/17 14:24 Aripiprazole [From Abilify] AdvReac Intermediate TALKS FUNNY Verified 02/08/17 14:24 PMH/Surg Hx/FS Hx/Imm Hx Previously Healthy: No Endocrine/Hematology History: Reports: Hx Diabetes - type II, controlled with diet, Hx Anemia - not during Denies: Hx Anticoagulant Therapy, Hx Thyroid Disease Cardiovascular History: Reports: Hx Hypertension - uses medication, well controlled, Hx Syncope Denies: Hx Congestive Heart Failure, Hx Coronary Artery Disease, Hx Embolism , Hx Pacemaker/ICD Respiratory History: Denies: Hx Asthma, Hx Chronic Obstructive Pulmonary Disease (COPD) GI History: Reports: Hx Gastroesophageal Reflux Disease Denies: Hx Ulcer History: Denies: Hx Renal Disease Musculoskeletal History: Reports: Hx Arthritis, Hx Back Problems - chronic low back pain, Hx Orthopedic Injury - left rotator cuff tear/repair, Hx Tendonitis, Other Musculoskeletal History - podiatric surgery right foot Sensory History: Reports: Hx Contacts or Glasses - glasses Denies: Hx Hearing Aid Opthamlomology History: Reports: Hx Contacts or Glasses - glasses Neurological History: Reports: Hx Headaches, Other Neuro Impairments/Disorders - POSSIBLE COMPLEX REGIONAL PAIN SYNDROME LEFT ARM Denies: Hx Dementia, Hx Seizures Psychiatric History: Reports: Hx Anxiety, Hx Depression, Hx Panic Disorder - ANXIETY Denies: Hx Eating Disorder, Hx of Violent Episodes Against Others, Hx Substance Abuse - Surgical History Surgery Procedure, Year, and Place: left rotator cuff repair Mar 2016 [facility] [place], right rotator cuff repair 2010. CSections 1985,1987,1989 [facility]. Hysterectomy 1997 [facility]. Podiatric surgery right foot [facility] Hx Anesthesia Reactions: No - Immunization History Date of Tetanus Vaccine: UNK Date of Influenza Vaccine: UNK Infectious Disease History: No Infectious Disease History: Denies: Hx Hepatitis, Hx Human Immunodeficiency Virus (HIV), Traveled Outside the [place] in Last 30 Days - Family History Known Family History: Positive: Cardiac Disease - mom , of [place] 71y.o., Other - sister, BRCA 46 y.o. - Social History Occupation: Unemployed Lives: With Family Alcohol Use: None Hx Substance Use: No Substance Use Type: Reports: None Substance Use Comment - Amount & Last Used: hydrocodone Hx Tobacco Use: No Smoking Status (MU): Never Smoked Tobacco Have You Smoked in the Last Year: No Review of Systems Negative: Fever Positive: Other - shoulder pain Neurological: Negative - dizziness, Other - during episodes: impaired speech, memory loss, absense seizure All Other Systems Reviewed And Are Negative: Yes Physical Exam - Summary Physical Exam Summary: VITAL SIGNS: Reviewed. GENERAL: Patient is a pale female who is lying comfortable in the stretcher. Patient is not in any acute respiratory distress. HEAD AND FACE: No signs of trauma. No ecchymosis, hematomas or skull depressions. No sinus tenderness. EYES: PERRLA, EOMI x 2, No injected conjunctiva, no nystagmus. EARS: Hearing grossly intact. Ear canals and tympanic membranes are within normal limits. MOUTH: Oropharynx within normal limits. NECK: Supple, trachea is midline, no adenopathy, no JVD, no carotid bruit, no c- spine tenderness, neck with full ROM. CHEST: Symmetric, no tenderness at palpation LUNGS: Clear to auscultation bilaterally. No wheezing or crackles. CVS: Regular rate and rhythm, S1 and S2 present, no murmurs or gallops appreciated. ABDOMEN: Soft, non-tender. No signs of distention. No rebound no guarding, and no masses palpated. Bowel sounds are normal. EXTREMITIES: Right hand shows swelling and erythema of right ring finger and ring proximal to swelling. NEURO: Alert and oriented x 2. Cannot recall year. Speech is normal and follows commands. SKIN: Dry and warm Triage Information Reviewed: Yes Vital Signs On Initial Exam: Initial Vitals Temp Pulse Resp BP Pulse Ox 97.1 F 77 15 117/73 100 04/04/17 19:34 04/04/17 19:34 04/04/17 19:34 04/04/17 19:34 04/04/17 19:34 Vital Signs Reviewed: Yes - Shad Coma Scale Coma Scale Total: 15 Diagnostics - Vital Signs Vital Signs Temp Pulse Resp BP Pulse Ox 04/04/17 19:38 79 14 98 04/04/17 19:36 117/73 04/04/17 19:34 97.1 F 77 15 117/73 100 - Laboratory Lab Results: Lab Results 04/04/17 04/04/17 04/04/17 Range/Units 20:46 20:55 20:55 WBC 6.7 (3.5-10.8) 10^3/ul RBC 4.31 (4.0-5.4) 10^6/ul Hgb 12.5 (12.0-16.0) g/dl Hct 38 (35-47) % MCV 88 (80-97) fL MCH 29 (27-31) pg MCHC 33 (31-36) g/dl RDW 13 (10.5-15) % Plt Count 220 (150-450) 10^3/ul MPV 9 (7.4-10.4) um3 Neut % (Auto) 42.7 (38-83) % Lymph % (Auto) 50.2 H (25-47) % [place] % (Auto) 4.1 (1-9) % Eos % (Auto) 1.4 (0-6) % Baso % (Auto) 1.6 (0-2) % Absolute Neuts (auto) 2.9 (1.5-7.7) 10^3/ul Absolute Lymphs (auto) 3.4 (1.0-4.8) 10^3/ul Absolute Monos (auto) 0.3 (0-0.8) 10^3/ul Absolute Eos (auto) 0.1 (0-0.6) 10^3/ul Absolute Basos (auto) 0.1 (0-0.2) 10^3/ul Absolute Nucleated RBC 0 10^3/ul Nucleated RBC % 0 INR (Anticoag Therapy) (0.77-1.02) Sodium 134 (133-145) mmol/L Potassium TNP Chloride 101 (101-111) mmol/L Carbon Dioxide 28 (22-32) mmol/L Anion Gap 5 (2-11) mmol/L BUN 16 (6-24) mg/dL Creatinine 1.01 H (0.51-0.95) mg/dL Est GFR ( Amer) 73.7 (>60) Est GFR (Non-Af Amer) 57.3 (>60) BUN/Creatinine Ratio 15.8 (8-20) Glucose 112 H (70-100) mg/dL Calcium 9.5 (8.6-10.3) mg/dL Magnesium 2.0 (1.9-2.7) mg/dL Total Bilirubin 0.30 (0.2-1.0) mg/dL AST TNP ALT 27 (7-52) U/L Alkaline Phosphatase 92 (34-104) U/L Total Protein 7.7 (6.4-8.9) g/dL Albumin 4.1 (3.2-5.2) g/dL Globulin 3.6 (2-4) g/dL Albumin/Globulin Ratio 1.1 (1-3) Urine Color Yellow Urine Appearance Clear Urine pH 5.0 (5-9) Ur Specific [place] 1.014 (1.010-1.030) Urine Protein Negative (Negative) Urine Ketones Negative (Negative) Urine Blood Negative (Negative) Urine Nitrate Negative (Negative) Urine Bilirubin Negative (Negative) Urine Urobilinogen Negative (Negative) Ur Leukocyte Esterase Trace H (Negative) Urine WBC (Auto) Absent (Absent) Urine RBC (Auto) Trace(0-2/hpf) (Absent) Ur Squamous Epith Cells Present H (Absent) Urine Bacteria Absent (Absent) Urine Glucose Negative (Negative) 04/04/17 Range/Units 20:55 WBC (3.5-10.8) 10^3/ul RBC (4.0-5.4) 10^6/ul Hgb (12.0-16.0) g/dl Hct (35-47) % MCV (80-97) fL MCH (27-31) pg MCHC (31-36) g/dl RDW (10.5-15) % Plt Count (150-450) 10^3/ul MPV (7.4-10.4) um3 Neut % (Auto) (38-83) % Lymph % (Auto) (25-47) % [place] % (Auto) (1-9) % Eos % (Auto) (0-6) % Baso % (Auto) (0-2) % Absolute Neuts (auto) (1.5-7.7) 10^3/ul Absolute Lymphs (auto) (1.0-4.8) 10^3/ul Absolute Monos (auto) (0-0.8) 10^3/ul Absolute Eos (auto) (0-0.6) 10^3/ul Absolute Basos (auto) (0-0.2) 10^3/ul Absolute Nucleated RBC 10^3/ul Nucleated RBC % INR (Anticoag Therapy) 0.88 (0.77-1.02) Sodium (133-145) mmol/L Potassium Chloride (101-111) mmol/L Carbon Dioxide (22-32) mmol/L Anion Gap (2-11) mmol/L BUN (6-24) mg/dL Creatinine (0.51-0.95) mg/dL Est GFR ( Amer) (>60) Est GFR (Non-Af Amer) (>60) BUN/Creatinine Ratio (8-20) Glucose (70-100) mg/dL Calcium (8.6-10.3) mg/dL Magnesium (1.9-2.7) mg/dL Total Bilirubin (0.2-1.0) mg/dL AST ALT (7-52) U/L Alkaline Phosphatase (34-104) U/L Total Protein (6.4-8.9) g/dL Albumin (3.2-5.2) g/dL Globulin (2-4) g/dL Albumin/Globulin Ratio (1-3) Urine Color Urine Appearance Urine pH (5-9) Ur Specific [place] (1.010-1.030) Urine Protein (Negative) Urine Ketones (Negative) Urine Blood (Negative) Urine Nitrate (Negative) Urine Bilirubin (Negative) Urine Urobilinogen (Negative) Ur Leukocyte Esterase (Negative) Urine WBC (Auto) (Absent) Urine RBC (Auto) (Absent) Ur Squamous Epith Cells (Absent) Urine Bacteria (Absent) Urine Glucose (Negative) Result Diagrams: 04/04/17 20:55 04/04/17 20:55 Lab Statement: Any lab studies that have been ordered have been reviewed, and results considered in the medical decision making process. - CT CT Brain CT Interpretation: No Acute Changes - IMPRESSION: NO EVIDENCE FOR ACUTE INTRACRANIAL ABNORMALITY. ED physician has reviewed this radiology report. CT Interpretation Completed By: Radiologist - EKG 2018 Cardiac Rate: NL EKG Rhythm: Sinus Rhythm - 76 BPM EKG Interpretation: NSR (76 BPM) Normal axis. Normal interval. No ischemic changes Course/Dx - Course Course Of Treatment: This patient is a 52 year old female BIBA to [facility] accompanied by daughter with a chief complaint of episodes of absence seizures since 3 days ago. Patients daughter states she has no recollection of whats going on and spaces out for periods of 5-15 minutes. During episodes, she is unable to respond. This occurs 2-3 times a day. During time of visit, patient is mildly confused, talking normally, but unable to recall current year and home address. An EKG, taken 2017, reveals NSR (76 BPM) Normal axis. Normal interval. No ischemic changes. CT Brain reveals, per radiologist, IMPRESSION: NO EVIDENCE FOR ACUTE INTRACRANIAL ABNORMALITY. ED physician has reviewed this radiology report. Bloodwork Obtained. Urinalysis Obtained. In the ED course the patient was given Keppra. We discussed patient care with Dr. Ceballos ( neurologist) at 2106 and they recommended patient be put on Keppra and recommended admittance to hospital. We discussed patient care with Dr. Ramirez ( Hospitalist) at 2129 and they agreed to admit the patient. Patient is diagnosed with Seizure. The patient is agreeable with this plan. - Differential Dx Differential Diagnoses Neuro: Positive: Seizure Disorder - Diagnoses Provider Diagnoses: Seizure disorder - Physician Notifications Discussed Care Of Patient With: Jovany Ceballos - neurologist Time Discussed With Above Provider: 21:07 - We discussed patient care with Dr. Ceballos (neurologist) at 2106 and they recommended patient be put on Keppra and recommended admittance to hospitallist. Instructed by Provider To: Admit As Inpatient - We discussed patient care with Dr. Ramirez (Hospitalist) at 2129 and they agreed to admit the patient. Admit/Transition Orders Completed By ED Provider: Yes Discharge - Discharge Plan Condition: Fair Disposition: ADMITTED TO [facility] Referrals: Gera Nogueira MD [Primary Care Provider] - Consult Consult: We discussed patient care with Dr. Ramirez (Hospitalist) at 2129 and they agreed to admit the patient. The documentation as recorded by the Kevin drew Tecjoon accurately reflects the service I personally performed and the decisions made by , Mary Keenan MD.
[2017-04-04] MEDS ORDERED: levETIRAcetam 500 MG IVPREMIX* 500 MG/100 ML BAG IV ONE ×2 (21:45→22:00)
[2017-04-04] MEDS ORDERED: oxyCODONE/Acetamin 5/325 MG* TAB PO ONE (21:47)
[2017-04-04] MEDS ORDERED: Morphine TAB Extended Release (*) 15 MG TAB.ER PO PRN (22:52)
[2017-04-04] MEDS ORDERED: Acetaminophen TAB* 325 MG PO PRN (22:55)
[2017-04-05] MEDS: oxyCODONE/Acetamin 5/325 MG* TAB PO PRN ×5 (00:46→23:42)
--- NOTE | 2017-04-05 01:29 | HP ---
CC: Dr. Nogueira * HISTORY AND PHYSICAL: DATE OF ADMISSION: 04/04/17 PRIMARY CARE PHYSICIAN: Dr. Nogueira. ATTENDING PHYSICIAN: Dr. Charles Ramirez * (dictation provided by Beronica Mustafa NP ). CHIEF COMPLAINT: Episodes of confusion with staring spells. HISTORY OF PRESENT ILLNESS: Ms. Brumfield is a 52-year-old female with a past medical history of hypertension, diet-controlled diabetes, multiple concussions with most recent concussion happened in July 2016 after falling down stairs. Since this fall in July, the patient has had confusion at times. He has also had memory loss. Patient's daughter notes that the patient will sometimes leave the home unexpectedly and wander to a neighbor's house and stand on the porch. The patient will have no recollection of these events. She also has poor memory. She has been described as having periods where she stares off in the space and is unresponsive. These episodes can last anywhere from 1 to 15 minutes. Patient's daughter feels that these episodes of staring and unresponsiveness have been increasing in frequency over the past 3 days. Where as before she might not have one every day, now she seemed to be having them 2 to 3 times a day. The patient was seen in consultation by Dr. William outpatient on 01/11/17. At that time, the patient scored quite poorly at that point on the MOCA and it was reported that scored poorly on the MMSE as well. Dr. William did not feel that her symptoms were all attributable to concussion and that possibly they were psychogenic and/or related to polypharmacy. Plans at that point were for her to be referred to Dr. Bennie Márquez, who is a clinical neuropsychologist in [place]. Patient's daughter reports that that appointment is scheduled for 05/29/16. They have been making an effort to try to have that moved up, but has not happened. The patient's workup in addition to the visit with Dr. William also included an EEG on 12/02/16 that was normal and a reported MRI from August 2016, which showed nonspecific foci of increased FLAIR signal compared to March 2008. In the emergency room, Ms. Brumfield had labs, which showed no acute abnormality. Her tox screen is positive for opiates and benzodiazepines, both of which she has prescribed. The case was reviewed with Dr. Ceballos, who recommend observation for EEG and possible MRI as well as Keppra loading. PAST MEDICAL HISTORY: 1. Hypertension. 2. Type 2 diabetes, diet controlled. 3. Chronic back pain. 4. x3. 5. Hysterectomy. 6. GERD. 7. History of right foot surgery. 8. History of 2 rotator cuff surgeries on the left shoulder, 1 rotator cuff surgery on right shoulder on 03/17/17 with injury after a fall in July 2016 down stairs. MEDICATIONS: 1. Meloxicam 7.5 mg p.o. daily. 2. Oxycodone/acetaminophen 5/325 one tab p.o. q.4 hours p.r.n. 3. Alprazolam 0.5 mg p.o. b.i.d. p.r.n. 4. Aspirin 81 mg p.o. daily. 5. Diltiazem XT 180 mg p.o. b.i.d. 6. Duloxetine DR 60 mg p.o. daily. 7. Lidocaine patch 5% one patch transdermally daily. 8. Lisinopril 10 mg p.o. daily. 9. Morphine ER 15 mg p.o. q.12 hours p.r.n. 10. Pregabalin 150 mg p.o. t.i.d. ALLERGIES: PENICILLIN and ARIPIPRAZOLE. FAMILY HISTORY: Patient reports her mother related to a heart attack in her 70s and dad related to prostate cancer at age 54. SOCIAL HISTORY: No report of alcohol, tobacco or drug use. Patient lives with her daughter, Salina, who is the healthcare proxy. REVIEW OF SYSTEMS: A 14-point review of systems was completed with Ms. Brumfield , all those not mentioned above were negative. PHYSICAL EXAMINATION GENERAL: Ms. Brumfield is sitting up on the bed. She is in no acute distress. Her daughter is at the bedside. VITAL SIGNS: Temperature 97.1, heart rate 82, respiratory rate 19, O2 saturation 98% on room air, and blood pressure 125/88. LUNGS: Clear to auscultation bilaterally with no accessory muscle use and good aeration. HEART: S1 and S2. No murmur, rub, gallop and regular. ABDOMEN: Soft, nontender with bowel sounds positive x4. EXTREMITIES: No cyanosis or edema. NEUROLOGIC: She is alert, she is oriented x3. She moves all extremities equally, although I am not able to assess well her right upper extremity as it is in a sling, splint status post a rotator cuff surgery. Her pupils are equal and reactive. Her extraocular movements are intact. Sensation is intact bilaterally. Her face is symmetrical. Speech is clear. She provides much of the history today. No confusion is noted. No episodes of staring were noted. SKIN: Patient has abrasion to her right ring finger where several rings had been removed over the past few days after her surgery including one ring that was removed today in the emergency room due to swelling. DIAGNOSTIC STUDIES/LAB DATA: WBC 6.7, hemoglobin 12.5, hematocrit 38, platelet count 220. INR 0.88. Sodium 134, potassium 3.9, chloride 101, serum bicarbonate 28, BUN 16, creatinine 1.01. Urine shows trace leuk esterase only, with no bacteria, no nitrites. Tox screen is positive for opiates and benzodiazepines. CT brain today shows no evidence for acute intracranial abnormality. EKG shows sinus rhythm with no evidence of ischemia and heart rate about 76. ASSESSMENT: Ms. Brumfield is a 52-year-old female with a past medical history of fall in July 2016 with reported concussion and injury to her right shoulder. She is now status post right rotator cuff surgery with Dr. Mcwilliams in [place] but she has had continued concern for confusion, memory loss and staring spells. Our concern today is for possible seizure activity. Our plans are for observation in the hospital for the followin. Staring spells with confusional episodes. I am concerned that perhaps the patient is having seizure activity. Dr. Ceballos has been consulted and he will be seeing the patient tomorrow. She has been loaded with Keppra in the emergency room. I have ordered an EEG for tomorrow. I will note that in the past the patient said she had difficulty with an EEG because of the weave in her hair preventing the placement of electrodes. I ordered the test and will see if the technicians can perform it tomorrow. Dr. Ceballos initially suggested ordering an MRI. However, on review of the outpatient record I note that she did have an MRI in August. I am not ordering that tonigh. However, if Dr. Ceballos would like to continue with MRI, that can be added on tomorrow. I do note the note from Dr. William that suggests that perhaps this is more psychogenic in origin or perhaps related to polypharmacy. I have, therefore, held her long-acting morphine, which she says she only takes on p.r.n. basis and she will have oxycodone available as needed for pain. 2. Chronic pain with right shoulder rotator cuff surgery. Plan to continue her Lyrica. I am holding the morphine as noted. She will have oxycodone 5/325 one to two tabs q.4 hours p.r.n. pain. 3. Anxiety. The patient will have alprazolam available p.r.n. 4. Diabetes. The patient is diet controlled. I do not plan to order blood glucoses at this time, but she will have a consistent carbohydrate diet. 5. Hypertension. Plan to continue lisinopril and Cardizem. Blood pressure is well controlled. 6. Depression and anxiety. Continue duloxetine. 7. Code status: Full code. 8. Disposition to medical floor. TIME SPENT: Approximately 60 minutes was spent on the admission of this patient , more than half that time spent with the patient at bedside reviewing the events leading up to this hospitalization, performing the physical examination, and reviewing my plan of care. BERONICA MUSTAFA NP [id number]/CPS #: [id number] TOYA
[2017-04-05] MEDS: Heparin VIAL(*) 5000 UNITS/ML VIAL (FIVE THOUSAND) SUBCUT SCH ×3 (05:38→21:52)
[2017-04-05] MEDS: ALPRAZolam TAB* 0.5 MG PO PRN ×2 (08:48→21:52)
[2017-04-05] MEDS: Pregabalin CAP(*) 50 MG PO SCH ×3 (08:51→19:57)
[2017-04-05] MEDS: DULoxetine DR CAP* 60 MG CAP.DR PO SCH (08:52)
[2017-04-05] MEDS: Aspirin EC Low Dose* 81 MG TAB.EC PO SCH (08:52)
[2017-04-05] MEDS: Diltiazem CD CAP* 180 MG PO SCH ×2 (08:52→19:59)
[2017-04-05] MEDS: Lisinopril TAB* 10 MG PO SCH (08:53)
[2017-04-05] MEDS: Lidocaine PATCH 5%* 1 PATCH TRANSDERM SCH ×2 (08:57→10:57)
[2017-04-05] MEDS: levETIRAcetam 500 MG IVPREMIX* 500 MG/100 ML BAG IV SCH ×2 (10:57→20:09)
--- NOTE | 2017-04-05 14:01 | PN ---
Subjective Date of Service: 04/05/17 Interval History: Patient seen and examined at bedside. Patient visibly unsteady on her feet and trying to get to the bathroom. Reports left shoulder pain. Unable to recall how she got to the hospital and why she is here. Occasionally stops mid speech and stared off, then finishes sentence. She is unable to recount alphabet without error, tell me her last name correctly or who is the president. Family History: Unchanged from Admission Social History: Unchanged from Admission Past Medical History: Unchanged from Admission Objective Active Medications: Acetaminophen (Tylenol Tab*) 650 mg PO Q6H PRN Alprazolam (Xanax Tab*) 0.5 mg PO BID PRN Aspirin (Aspirin Ec Low Dose*) 81 mg PO DAILY GISELLA Diltiazem HCl (Cardizem Cd Cap*) 180 mg PO BID GISELLA Duloxetine HCl (Cymbalta Cap*) 60 mg PO DAILY GISELLA Heparin Sodium (Porcine) (Heparin Vial(*)) 5,000 units SUBCUT Q8HR GISELLA Levetiracetam (Keppra Iv Premix*) 500 mg in 100 mls @ 400 mls/hr IV Q12H GISELLA Lidocaine (Lidoderm 5% Patch*) 1 patch TRANSDERM DAILY GISELLA Lisinopril (Prinivil Tab*) 10 mg PO DAILY GISELLA Morphine Sulfate (Ms Contin(*)) 15 mg PO Q12HR PRN Oxycodone/Acetaminophen (Percocet 5/325 Tab*) 1 tab PO Q4H PRN Oxycodone/Acetaminophen (Percocet 5/325 Tab*) 2 tab PO Q4H PRN Pharmacy Profile Note (Lidocaine Patch Remove*) 1 note PATCH OFF BEDTIME GISELLA Pregabalin (Lyrica Cap(*)) 150 mg PO TID GISELLA Vital Signs Temp Pulse Resp BP Pulse Ox 97.4 F 72 18 105/68 100 04/05/17 07:26 04/05/17 07:26 04/05/17 14:00 04/05/17 07:26 04/05/17 07:26 Oxygen Devices in Use Now: None Appearance: sitting up in bed, NAD Eyes: No Scleral Icterus, PERRLA Ears/Nose/Mouth/Throat: NL Teeth, Lips, Gums Neck: NL Appearance and Movements; NL JVP Respiratory: Symmetrical Chest Expansion and Respiratory Effort, Clear to Auscultation Cardiovascular: NL Sounds; No Murmurs; No JVD Abdominal: NL Sounds; No Tenderness; No Distention Extremities: No Edema Skin: No Rash or Ulcers, - - R arm in brace. Neurological: NL Muscle Strength and Tone, - - alert only oriented to self. Lines/Tubes/Other Access: Clean, Dry and Intact Peripheral IV Nutrition: Taking PO's Result Diagrams: 04/04/17 20:55 04/04/17 22:01 Additional Lab and Data: . Assess/Plan/Problems-Billing Pt is a 52 y/o F w/ hx of HTN, diabetes, hx of episodes of loss of consciousness which resulted in concussion in 07/2016 w/ a sequela of worsening confusion brought in for staring spells suspicious for seizure. - Patient Problems (1) Seizure Comment: Patient loaded with Keppra and start on BID Keppra. Confusion/staring spells seems worse this morning. Patient has seen Dr. William in the past who felt that there may be a psychogenic component and referred her to a neuropsychiatrist in [place]. Case discussed with Dr. Ceballos. MRI of brain ordered. EEG ordered yet patient will need weave removed to have EEG and patient refused. Will discuss with patient's daughter. Continue neurochecks and frequent reorientation. (2) Chronic pain Comment: Secondary to recent rotator cuff surgery. Long acting morphine on hold to see if narcotics were playing into worsening confusion. Continue Lyrica and PRN percocet. (3) Diabetes Comment: Consistent carb diet. (4) HTN (hypertension) Comment: Controlled with lisinopril and cardizem. (5) Anxiety and depression Comment: Continue duloxetine and PRN Xanax (6) DVT prophylaxis Comment: SQ Heparin (7) Full code status Status and Disposition: Change to Inpatient. Discharge home when stable.
--- NOTE | 2017-04-05 19:52 | RAD ---
INDICATION: Seizure, loss of consciousness. COMPARISON: Comparison is made with a prior MRI of the brain from July 10, [address] of the brain from April 04, 2017. TECHNIQUE: Sagittal T1, coronal T1 and T2, axial T1, T2, susceptibility, FLAIR and diffusion weighted images were obtained. FINDINGS: The ventricles, cisterns and sulci appear to be within normal limits. There are couple small foci of increased signal intensity on T2-weighted images in the subcortical white matter which appear similar to the prior exam and likely incidental. No other focal abnormality or mass effect is seen. No areas of restricted diffusion are present. There is no evidence for infarct or hemorrhage. The visualized portion of the paranasal sinuses and mastoid air cells appear clear. IMPRESSION: NEGATIVE EXAM.
[2017-04-05] MEDS: Lidocaine Patch REMOVE* 1 NOTE MISC PATCH OFF SCH (20:14)
--- NOTE | 2017-04-05 22:28 | CONS ---
CONSULTATION REPORT: DATE OF CONSULT: 04/05/17 PATIENT OF: Dr. Mustafa, Dr. Nogueira, and Dr. William. HISTORY OF PRESENT ILLNESS: This is a 52-year-old woman who is presenting with a 3 to 4 day history of frequent unresponsive staring spells that last 4 to 5 minutes. She has been staying with her daughter following a rotator cuff surgery on March 17. The daughter had not noticed any of these staring spells until the past few days as mentioned and she says the mom is fine afterwards, but during the spells she is unresponsive to her calling her and seems to be out of it. I asked her if she had any prior similar spells, the first the daughter said no and then the daughter said that when her mom wandered she would sometimes walk and appeared to be unresponsive and that that had been going on for a long time, but that was infrequent. There has been no history of abnormal movements or shaking episodes. She had seen Dr. William for concussion headache and confusion. She had fallen down 5 stairs in July of this year and may have been passed out for 2 to 3 minutes time and has been having some confusion since then. There was a normal EEG at that point and Dr. William was not sure whether her issues of memory loss were related to a head trauma or related to her anxiety and depression and she had sent her for physical therapy for her headaches. There has been no prior history of seizures. PAST MEDICAL HISTORY: Significant for hypertension, diabetes type 2, chronic back pain, x3, hysterectomy, GERD, right foot surgery, history of two rotator cuff surgeries. MEDICATIONS: On admission include: 1. Meloxicam 7.5 mg daily. 2. Oxycodone/acetaminophen 3/325 mg q.4 hours p.r.n. 3. Alprazolam 0.5 mg b.i.d. 4. Aspirin 81 mg daily. 5. Diltiazem 180 mg XT b.i.d. 6. Cymbalta 60 mg daily. 7. Lidocaine patch 5% one patch transdermally daily. 8. Lisinopril 10 mg daily. 9. Morphine 15 mg q.12 hours p.r.n. 10. Lyrica 150 mg t.i.d. ALLERGIES: She is allergic to PENICILLIN and ARIPIPRAZOLE. FAMILY HISTORY: The mother secondary to a heart attack and dad of prostate cancer. There is no history of alcohol or drug abuse. SOCIAL HISTORY: No tobacco. She lives with her daughter currently who is the healthcare proxy. REVIEW OF SYSTEMS: Negative in all 14 spheres other than the HPI. PHYSICAL EXAM: Temperature 97.9, pulse 81, respirations 18, blood pressure 111/ 67. She is alert and oriented with normal speech and comprehension. Cranial nerves II through XII were intact. Fundi were begin. Motor exam revealed normal tone, strength, and coordination. Sensation intact to light touch. Reflexes are 1 and equal with downgoing toes. Chest: Clear. Cardiovascular: Regular rate and rhythm. Abdomen is soft with positive bowel sounds. DIAGNOSTIC STUDIES/LAB DATA: Her head CT scan was normal. She has not had her MRI scan yet. EEG was delayed because she initially refused to have her. We have spoken to the family and daughter, who is going to take the leaf out and the EEG will be done. There has been no clear episodes today and she has been loaded on Keppra in the emergency room and he is now on 500 mg twice a day. Laboratories includes normal CBC, INR. CMP is abnormal only for creatinine of 1.01 and a glucose of 112. UA was normal other than trace leukocyte esterase. Opioids and benzodiazepines were positive on the urine toxin, but otherwise negative. IMPRESSION AND PLAN: It is unclear to me whether Alethea is having organic seizures or whether her staring spells are secondary to stress. These episodes have began in the past 4 days' time and are quite frequent. It is possible that she was having different, but significant episodes before this on an infrequent basis, but the history is somewhat unclear at this point in any event. She is not a good candidate for long-term Keppra use, although acutely if these were seizures, we will plan to get things under control. The plan is to get an MRI scan and EEG to assess her tendency towards seizures. If these are clearcut seizures, we may switch to another medicine such as Trileptal which may be a mood stabilizer. If there is no evidence of seizures, we may withdraw the Keppra and observe her in hospital and if she has repeated staring spells, may do some longer term monitoring. Dr. William will be back in the office tomorrow and I will discuss the case with her as well. Thank you for sharing her case. [id number]/[facility] #: [id number] TOYA
[2017-04-06] MEDS: oxyCODONE/Acetamin 5/325 MG* TAB PO PRN ×3 (05:38→15:13)
[2017-04-06] MEDS: Heparin VIAL(*) 5000 UNITS/ML VIAL (FIVE THOUSAND) SUBCUT SCH ×3 (05:39→21:53)
[2017-04-06] MEDS: levETIRAcetam 500 MG IVPREMIX* 500 MG/100 ML BAG IV SCH (09:27)
[2017-04-06] MEDS: Lidocaine PATCH 5%* 1 PATCH TRANSDERM SCH (09:29)
[2017-04-06] MEDS: Pregabalin CAP(*) 50 MG PO SCH ×3 (09:35→21:51)
[2017-04-06] MEDS: DULoxetine DR CAP* 60 MG CAP.DR PO SCH (09:35)
[2017-04-06] MEDS: Aspirin EC Low Dose* 81 MG TAB.EC PO SCH (09:36)
[2017-04-06] MEDS: Diltiazem CD CAP* 180 MG PO SCH ×2 (09:36→21:52)
[2017-04-06] MEDS: Lisinopril TAB* 10 MG PO SCH (09:36)
--- NOTE | 2017-04-06 10:57 | PN ---
Subjective Date of Service: 04/06/17 Interval History: Patient seen and examined at bedside. Deies fever, chills, shortness of breath, chest discomfort, N/V/D. Pt states that she is lightheaded when she is walking. Pt has been getting out of bed on her own and [facility] staff reports that her gait is very unsteady. Pt is unable to produce her full name, she read her name off her ID band. Unable to correctly recite the alphabet. Pt thinks that she is sharing a room somewhere and was unaware that she was at the hospital. She thought she was somewhere to go shopping. Family History: Unchanged from Admission Social History: Unchanged from Admission Past Medical History: Unchanged from Admission Objective Active Medications: Acetaminophen (Tylenol Tab*) 650 mg PO Q6H PRN Reason: PAIN Alprazolam (Xanax Tab*) 0.5 mg PO BID PRN Reason: ANXIETY Aspirin (Aspirin Ec Low Dose*) 81 mg PO DAILY [facility] Diltiazem HCl (Cardizem Cd Cap*) 180 mg PO BID [facility] Duloxetine HCl (Cymbalta Cap*) 60 mg PO DAILY [facility] Heparin Sodium (Porcine) (Heparin Vial(*)) 5,000 units SUBCUT Q8HR [facility] Levetiracetam (Keppra Iv Premix*) 500 mg in 100 mls @ 400 mls/hr IV Q12H [facility] Lidocaine (Lidoderm 5% Patch*) 1 patch TRANSDERM DAILY [facility] Lisinopril (Prinivil Tab*) 10 mg PO DAILY [facility] Morphine Sulfate (Ms Contin(*)) 15 mg PO Q12HR PRN Reason: PAIN Oxycodone/Acetaminophen (Percocet 5/325 Tab*) 1 tab PO Q4H PRN Reason: PAIN Oxycodone/Acetaminophen (Percocet 5/325 Tab*) 2 tab PO Q4H PRN Reason: PAIN Pharmacy Profile Note (Lidocaine Patch Remove*) 1 note PATCH OFF BEDTIME [facility] Pregabalin (Lyrica Cap(*)) 150 mg PO TID [facility] Vital Signs - 8 hr 04/06/17 04/06/17 04/06/17 05:38 09:35 09:43 Respiratory 18 16 16 Rate Oxygen Devices in Use Now: None Appearance: NAD, sitting up in bed Ears/Nose/Mouth/Throat: Mucous Membranes Moist Respiratory: Symmetrical Chest Expansion and Respiratory Effort, Clear to Auscultation Cardiovascular: NL Sounds; No Murmurs; No JVD, RRR Abdominal: NL Sounds; No Tenderness; No Distention Extremities: No Edema Skin: No Rash or Ulcers Neurological: NL Muscle Strength and Tone, - - Alert and Oriented to Person. Smile symetric, hand museum host/hostess equal, strong dorsi and plantar flex. Lines/Tubes/Other Access: Clean, Dry and Intact Peripheral IV - site benign Nutrition: Taking PO's Result Diagrams: 04/04/17 20:55 04/04/17 22:01 Assess/Plan/Problems-Billing Ms. Brumfield is a 52 y/o F w/ hx of HTN, diabetes, hx of episodes of loss of consciousness which resulted in concussion in 07/2016 w/ a sequela of worsening confusion who presented to the emergency room for staring spells suspicious for seizure. - Patient Problems (1) Seizure Code(s): R56.9 - UNSPECIFIED CONVULSIONS SNOMED Code(s): 83081775 Comment: - Confusion/staring spells seems worse this morning. - Patient has seen Dr. William in the past who felt that there may be a psychogenic component and referred her to a neuropsychiatrist in [place]. - Dr. Ceballos consulted, input appreciated. - MRI of brain negative. - EEG completed last evening, read pending. - Continue neurochecks and frequent reorientation. - Continue BID Keppra. (2) Chronic pain Code(s): G89.29 - OTHER CHRONIC PAIN SNOMED Code(s): 59136132 Comment: - Secondary to recent rotator cuff surgery. - Long acting morphine on hold to see if narcotics were playing into worsening confusion. - Continue Lyrica and PRN percocet. (3) Diabetes Code(s): E11.9 - TYPE 2 DIABETES MELLITUS WITHOUT COMPLICATIONS SNOMED Code(s) : 64483502 Comment: - Consistent carb diet. (4) Anxiety and depression Code(s): F41.8 - OTHER SPECIFIED ANXIETY DISORDERS SNOMED Code(s): 563039555 Comment: - Continue duloxetine and PRN Xanax (5) HTN (hypertension) Code(s): I10 - ESSENTIAL (PRIMARY) HYPERTENSION SNOMED Code(s): 54389210 Comment: - Normotensive. - Controlled with lisinopril and cardizem. (6) DVT prophylaxis Code(s): XKI2624 - SNOMED Code(s): 668861312 Comment: - SQ Heparin (7) Full code status Code(s): Z78.9 - OTHER SPECIFIED HEALTH STATUS SNOMED Code(s): 561115050 Status and Disposition: Inpatient. Discharge home when stable.
[2017-04-06] MEDS: ALPRAZolam TAB* 0.5 MG PO PRN (11:14)
--- NOTE | 2017-04-06 16:58 | EEG ---
ELECTROENCEPHALOGRAPHY: DATE OF STUDY: 04/05/17 - ROOM #ICU-01 DATE OF DICTATION: 04/06/17 CLINICAL PROBLEM: This is a 52-year-old patient of Osiris Salgado's and Dr. William' s who is being evaluated for new onset of frequent starring spells lasting up to 5 minutes in the past several days' time. There is prior episode of confusion. MEDICATIONS: Include; 1. MS Contin. 2. Percocet. 3. Xanax. 4. Lidocaine. 5. Heparin. 6. Lyrica. 7. Prinivil. 8. Lidoderm. 9. Keppra. 10. Cymbalta. 11. Cardizem. 12. Aspirin. REPORT: With the patient awake, background cerebral activity consists of moderate amplitude posterior dominant 9 Hz rhythm. With the patient drowsy, there is slowing to theta range. There is a single instance of theta activity during drowsiness where this theta activity is more prominent in the left posterior temporal area than the right. This finding is of unclear clinical significance. No clear-cut epileptiform potentials, focal abnormalities or major asymmetries of background are noted. CLINICAL IMPRESSION: This awake and drowsy EEG shows no epileptiform potentials. There is persistent and consistent asymmetries of background. [id number]/[facility] #: [id number] [facility]
[2017-04-06] MEDS: CMCS: Meloxicam(NF) 7.5 MG TAB PO SCH (17:32)
[2017-04-06] MEDS: Lidocaine Patch REMOVE* 1 NOTE MISC PATCH OFF SCH (21:55)
[2017-04-07] MEDS: oxyCODONE/Acetamin 5/325 MG* TAB PO PRN ×4 (05:30→20:06)
[2017-04-07] MEDS: ALPRAZolam TAB* 0.5 MG PO PRN ×2 (05:30→21:15)
[2017-04-07] MEDS: Heparin VIAL(*) 5000 UNITS/ML VIAL (FIVE THOUSAND) SUBCUT SCH ×3 (06:03→21:16)
[2017-04-07] MEDS: Pregabalin CAP(*) 50 MG PO SCH ×2 (08:21→13:58)
[2017-04-07] MEDS: CMCS: Meloxicam(NF) 7.5 MG TAB PO SCH (08:22)
[2017-04-07] MEDS: Diltiazem CD CAP* 180 MG PO SCH ×2 (08:22→21:15)
[2017-04-07] MEDS: Aspirin EC Low Dose* 81 MG TAB.EC PO SCH (08:22)
--- NOTE | 2017-04-07 08:50 | EEG ---
PRISON VIDEO/EEG MONITORING - Monitoring Monitoring Start Date: 04/06/17 Current Monitoring Session: 04/06/17 at 14:53 to 04/07/17 at 12:53 EEG Clinical Indication: Alethea Brumfield is a 52 year old woman with a history of concussion more than 6 months ago who has been having mental status changes. She has been found wandering outside, not knowing why she is there. She has also more recently been having episodes of staring and unresponsiveness, which are new. Her family brought her to the ER due to these spells and Keppra was started initially. She had an additional spell while hospitalized and long-term video EEG monitoring was requested in order to characterize these events. Keppra was discontinued. Introduction: INTRODUCTION: The EEG was monitored from 21 scalp electrodes. Nineteen electrodes consisted of the standard parasagittal, temporal and midline leads of the International 10 -20 system. In addition, special electrodes T1 and T2 were placed. EEG data were recorded on an [employer] system with simultaneous MPEG-4 digital video recording of patient behavior. EEG recording was in a monopolar montage with all electrodes referenced to FCz. Significant behavioral events were signaled by an event button, or putative electrical seizure events were detected by a computer program. All EEG data were reviewed in their entirety on a monitor with reconstruction of montages and adjustments of sensitivity and filtering. Simultaneous patient behavior was viewed on an adjacent monitor and correlated with the EEG. - Medications Active Medications: Acetaminophen (Tylenol Tab*) 650 mg PO Q6H PRN PRN Reason: PAIN Alprazolam (Xanax Tab*) 0.5 mg PO BID PRN PRN Reason: ANXIETY Last Admin: 04/07/17 05:30 Dose: 0.5 mg Aspirin (Aspirin Ec Low Dose*) 81 mg PO DAILY [facility] Last Admin: 04/07/17 08:22 Dose: 81 mg Diltiazem HCl (Cardizem Cd Cap*) 180 mg PO BID [facility] Last Admin: 04/07/17 08:22 Dose: 180 mg Duloxetine HCl (Cymbalta Cap*) 60 mg PO DAILY [facility] Last Admin: 04/06/17 09:35 Dose: 60 mg Heparin Sodium (Porcine) (Heparin Vial(*)) 5,000 units SUBCUT Q8HR [facility] Last Admin: 04/07/17 06:03 Dose: Not Given Lidocaine (Lidoderm 5% Patch*) 1 patch TRANSDERM DAILY [facility] Last Admin: 04/06/17 09:29 Dose: 1 patch Lisinopril (Prinivil Tab*) 10 mg PO DAILY [facility] Last Admin: 04/06/17 09:36 Dose: 10 mg Meloxicam (Mobic(Nf)) 7.5 mg PO DAILY [facility] Last Admin: 04/07/17 08:22 Dose: 7.5 mg Morphine Sulfate (Ms Contin(*)) 15 mg PO Q12HR PRN PRN Reason: PAIN Oxycodone/Acetaminophen (Percocet 5/325 Tab*) 1 tab PO Q4H PRN PRN Reason: PAIN Last Admin: 04/05/17 08:49 Dose: 1 tab Oxycodone/Acetaminophen (Percocet 5/325 Tab*) 2 tab PO Q4H PRN PRN Reason: PAIN Last Admin: 04/07/17 05:30 Dose: 2 tab Pharmacy Profile Note (Lidocaine Patch Remove*) 1 note PATCH OFF BEDTIME [facility] Last Admin: 04/06/17 21:55 Dose: 1 note Pregabalin (Lyrica Cap(*)) 150 mg PO TID [facility] Last Admin: 04/07/17 08:21 Dose: 150 mg - Description Background: The waking background showed appropriate organization with clearly defined anterior-posterior voltage and frequency gradients. There was a defined posterior dominant rhythm of 9 Hertz, which was symmetrical and showed normal reactivity. Anteriorly, there was the expected pattern of lower voltage and more irregular theta and beta rhythms. There was excess beta activity present predominantly frontocentrally. The sleep background was appropriately organized with well-developed spindles and vertex waves indicative of stage 2 sleep. These sleep transients showed appropriate morphology and were bilaterally synchronous and symmetrical. Development of diffuse delta range frequencies with dropout of stage 2 architecture accompanied transition to slow wave sleep, and a lower voltage mixed frequency pattern associated with eye movements was consistent with REM sleep. Intericatal Epileptiform Activity: No epileptiform abnormalities were recorded. Ictal Activity: At 18:06, the patient was eating dinner when she pressed the nurse call button. She then took a deep breath and sat motionless. Thirty seconds later, the nurse entered the room and asked if there was something she could help with. There was no response from the patient. Staff called the patient's name multiple times and she gave no response. She was asked to stick out her tongue but did not respond. Her eyes were closed. The event button was pressed at 18:08:51. About 2.5 minutes after the nurses entered the room, she opened her eyes and began responding, but her responses were not audible on video. She appeared oriented to self and as well as the fact that she was in the hospital, but did not appear to know the name of the hospital. The EEG showed a normal waking background during this event. - Impression Impression: This is a normal long-term video EEG. Beta activity is an expected finding in the setting of benzodiazepine use. There are no epileptiform abnormalities or focal features. The patient experienced an event of staring and unresponsiveness during this recording which was not associated with any abnormal EEG activity. This event was non-epileptic in nature.
[2017-04-07] MEDS: Lidocaine PATCH 5%* 1 PATCH TRANSDERM SCH (10:49)
[2017-04-07] MEDS: DULoxetine DR CAP* 60 MG CAP.DR PO SCH (10:49)
[2017-04-07] MEDS: Lisinopril TAB* 10 MG PO SCH (10:49)
--- NOTE | 2017-04-07 11:33 | PN ---
PROGRESS NOTE: DATE OF VISIT: PATIENT OF: Dr. Khan and also Dr. William. HISTORY: This is a 52-year-old who I am seeing in followup. I spoke to her and her daughter, the daughter has not witnessed any staring spells. There was an episode earlier where she became quite confused, had some staring associated with that and did not know her name and did not know she was in the hospital and was planning on going shopping. That resolved and she is back to her baseline. She also just as of today developed significant walking problems. Family history, social history, past medical history is unchanged. MEDICATIONS: Unchanged and continue to include Keppra at this point. PHYSICAL EXAMINATION: Vital Signs: Temperature 97.9, pulse 74, respirations 18 , blood pressure 104/68. She is alert and oriented with normal speech, comprehension. Cranial nerves II through XII were intact. Motor exam revealed normal tone and strength. However, she had astasia abasia gait on exam, which did not look to have a neurological basis to my eye. Reflexes were 1+ and equal. Chest: Clear. Cardiovascular: Regular rate and rhythm. I reviewed her MRI scan, this is normal. Her EEG was normal. Given that she is having ongoing spells, I am going to stop the Keppra and have her on a video EEG to better characterize. I discussed with the family that some of this may be related to stress and part of the value of the video EEG is either documented for sure seizures, and we may switch her medicine to a different anticonvulsant from the Keppra. The daughter says she has begun to get victoria on the Keppra and it may instead show that these are stress related spells. I think her walking is also stress related symptoms. I discussed that she may need counseling or other psychological help when she goes home. I have discussed this with her primary neurologist, Dr. William, as well. She will be transferred to the ICU for further monitoring. I have discussed this with her hospitalist. [id number]/[facility] #: [id number] [facility]ITAL[facility]
--- NOTE | 2017-04-07 11:58 | PN ---
Subjective Date of Service: 04/07/17 Interval History: Patient seen and examined at bedside. Denies fever, chills, chest discomfort, N/ V/D. She reports mild shortness of breath with exertion. Pt is able to state where she is and the year. She read the day of the week off the white board. She is able to recite more of the alphabet correctly today, but still misses some letters. She is able to state her full name without reading her ID band today. Tele: Sinus rhythm rate 70-90's. Family History: Unchanged from Admission Social History: Unchanged from Admission Past Medical History: Unchanged from Admission Objective Active Medications: Acetaminophen (Tylenol Tab*) 650 mg PO Q6H PRN Reason: PAIN Alprazolam (Xanax Tab*) 0.5 mg PO BID PRN Reason: ANXIETY Aspirin (Aspirin Ec Low Dose*) 81 mg PO DAILY [facility] Diltiazem HCl (Cardizem Cd Cap*) 180 mg PO BID [facility] Duloxetine HCl (Cymbalta Cap*) 60 mg PO DAILY [facility] Heparin Sodium (Porcine) (Heparin Vial(*)) 5,000 units SUBCUT Q8HR [facility] Lidocaine (Lidoderm 5% Patch*) 1 patch TRANSDERM DAILY [facility] Lisinopril (Prinivil Tab*) 10 mg PO DAILY [facility] Meloxicam (Mobic(Nf)) 7.5 mg PO DAILY [facility] Morphine Sulfate (Ms Contin(*)) 15 mg PO Q12HR PRN Reason: PAIN Oxycodone/Acetaminophen (Percocet 5/325 Tab*) 1 tab PO Q4H PRN Reason: PAIN Oxycodone/Acetaminophen (Percocet 5/325 Tab*) 2 tab PO Q4H PRN Reason: PAIN Pharmacy Profile Note (Lidocaine Patch Remove*) 1 note PATCH OFF BEDTIME [facility] Pregabalin (Lyrica Cap(*)) 150 mg PO TID [facility] Vital Signs - 8 hr 04/07/17 04/07/17 04/07/17 04:00 05:00 05:30 Temperature 97.9 F Pulse Rate 70 78 Respiratory 20 15 16 Rate Blood Pressure 100/68 113/72 (mmHg) O2 Sat by Pulse 95 99 Oximetry 04/07/17 04/07/17 04/07/17 06:00 07:00 08:00 Temperature 96.9 F Pulse Rate 71 69 73 Respiratory 17 18 23 Rate Blood Pressure 113/78 95/67 104/76 (mmHg) O2 Sat by Pulse 97 92 97 Oximetry 04/07/17 04/07/17 04/07/17 09:00 09:35 10:00 Temperature Pulse Rate 71 93 Respiratory 17 16 15 Rate Blood Pressure 97/75 (mmHg) O2 Sat by Pulse 97 98 Oximetry 04/07/17 04/07/17 04/07/17 10:45 11:00 11:01 Temperature Pulse Rate 83 78 77 Respiratory 29 17 20 Rate Blood Pressure 132/76 123/87 (mmHg) O2 Sat by Pulse 90 97 96 Oximetry 04/07/17 11:46 Temperature 98.5 F Pulse Rate Respiratory Rate Blood Pressure (mmHg) O2 Sat by Pulse Oximetry Oxygen Devices in Use Now: None Appearance: NAD, sitting up in bed Ears/Nose/Mouth/Throat: Mucous Membranes Moist Respiratory: Symmetrical Chest Expansion and Respiratory Effort, Clear to Auscultation Cardiovascular: NL Sounds; No Murmurs; No JVD, RRR Abdominal: NL Sounds; No Tenderness; No Distention Extremities: No Edema Skin: No Rash or Ulcers Neurological: Alert and Oriented x 3, NL Muscle Strength and Tone Lines/Tubes/Other Access: Clean, Dry and Intact Peripheral IV - site benign Nutrition: Taking PO's Result Diagrams: 04/04/17 20:55 04/04/17 22:01 Assess/Plan/Problems-Billing Ms. Brumfield is a 52 y/o F w/ hx of HTN, diabetes, hx of episodes of loss of consciousness which resulted in concussion in 07/2016 w/ a sequela of worsening confusion who presented to the emergency room for staring spells suspicious for seizure. - Patient Problems (1) Seizure Code(s): R56.9 - UNSPECIFIED CONVULSIONS SNOMED Code(s): 87245415 Comment: - Confusion seems to be improving. - Patient has seen Dr. William in the past who felt that there may be a psychogenic component and referred her to a neuropsychiatrist in [place]. - Dr. Ceballos consulted, input appreciated. - MRI of brain negative. - EEG and residential monitor with no seizure activity noted. - Continue neurochecks and frequent reorientation. - Psych consult pending, suspect there is a psychological component to this (2) Chronic pain Code(s): G89.29 - OTHER CHRONIC PAIN SNOMED Code(s): 88360319 Comment: - Secondary to recent rotator cuff surgery. - Long acting morphine on hold to see if narcotics were playing into worsening confusion. - Continue Lyrica, mobic and PRN percocet. (3) Diabetes Code(s): E11.9 - TYPE 2 DIABETES MELLITUS WITHOUT COMPLICATIONS SNOMED Code(s) : 35600560 Comment: - Consistent carb diet. (4) Anxiety and depression Code(s): F41.8 - OTHER SPECIFIED ANXIETY DISORDERS SNOMED Code(s): 918599620 Comment: - Continue duloxetine and PRN Xanax (5) HTN (hypertension) Code(s): I10 - ESSENTIAL (PRIMARY) HYPERTENSION SNOMED Code(s): 94160412 Comment: - Normotensive. - Controlled with lisinopril and cardizem. (6) DVT prophylaxis Code(s): [id number] - SNOMED Code(s): 123494232 Comment: - SQ Heparin (7) Full code status Code(s): Z78.9 - OTHER SPECIFIED HEALTH STATUS SNOMED Code(s): 083818301 Status and Disposition: Inpatient. Discharge home when stable.
--- NOTE | 2017-04-07 16:50 | CONSULT ---
Consult Consult: INPATIENT PAIN CONSULTATION Alethea Brumfield is known to me. She has a long history of low back pain going back to an injury she had while working at [employer] in September 2013. She had been on [place] up to 3 a day for her pain. 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 At that time, MS Contin, 15 mg BID and Lyrica 150 mg TID were added. She saw me regularly and did okay until she fell down a flight of stairs in August or September of this past year. Her primary care doctor, Dr. Nogueira had been evaluating her for possible memory loss. She had also injured her right shoulder. She had seemed oriented when I saw her in February. She had surgery on her right shoulder in March,. She was brought to the hospital by her daughter for repeated episodes of staring, with concerns for possible seizures. MRI of her brain was negative. EEG did not show epileptiform activity. I was asked to evaluate her pain regimen to see if this might be contributing. PAST MEDICAL HISTORY: GERD, HTN, Depression, Anxiety, hysterectomy, DM II ALLERGIES: PCN, ARIPIPRAZOLE SOCIAL HISTORY: Non drinker, non smoker. Lives with her daughter. Has HCP. Current Medications Acetaminophen (Tylenol Tab*) 650 mg PO Q6H PRN PRN Reason: PAIN Alprazolam (Xanax Tab*) 0.5 mg PO BID PRN PRN Reason: ANXIETY Last Admin: 04/07/17 05:30 Dose: 0.5 mg Aspirin (Aspirin Ec Low Dose*) 81 mg PO DAILY [facility] Last Admin: 04/07/17 08:22 Dose: 81 mg Diltiazem HCl (Cardizem Cd Cap*) 180 mg PO BID [facility] Last Admin: 04/07/17 08:22 Dose: 180 mg Duloxetine HCl (Cymbalta Cap*) 60 mg PO DAILY [facility] Last Admin: 04/07/17 10:49 Dose: 60 mg Heparin Sodium (Porcine) (Heparin Vial(*)) 5,000 units SUBCUT Q8HR [facility] Last Admin: 04/07/17 13:59 Dose: 5,000 units Lidocaine (Lidoderm 5% Patch*) 1 patch TRANSDERM DAILY [facility] Last Admin: 04/07/17 10:49 Dose: 1 patch Lisinopril (Prinivil Tab*) 10 mg PO DAILY [facility] Last Admin: 04/07/17 10:49 Dose: 10 mg Meloxicam (Mobic(Nf)) 7.5 mg PO DAILY [facility] Last Admin: 04/07/17 08:22 Dose: 7.5 mg Morphine Sulfate (Ms Contin(*)) 15 mg PO Q12HR PRN PRN Reason: PAIN Oxycodone/Acetaminophen (Percocet 5/325 Tab*) 1 tab PO Q4H PRN PRN Reason: PAIN Last Admin: 04/05/17 08:49 Dose: 1 tab Pharmacy Profile Note (Lidocaine Patch Remove*) 1 note PATCH OFF BEDTIME [facility] Last Admin: 04/06/17 21:55 Dose: 1 note Pregabalin (Lyrica Cap(*)) 150 mg PO TID [facility] Last Admin: 04/07/17 13:58 Dose: 150 mg Vital Signs Temp Pulse Resp BP Pulse Ox 98.7 F 71 16 128/77 98 04/07/17 15:20 04/07/17 15:20 04/07/17 15:20 04/07/17 15:20 04/07/17 15:20 EXAM: HEENT:NC/AT. EOMI LUNGS:Clear HEART:Reg rhythm ABDOMEN:Soft +BS EXTREMITIES: Right arm in a sling NEUROLOGIC: alert. She has some gaps in her memory. No focal weakness. Her memory is not as good as it was in February. ASSESSMENT/PLAN: 1. Low Back Pain 2. Right shoulder pain 3. Memory loss, possible mTBI/concussion in September I discussed this case with Maria Isabel Mireles and advised cutting her Percocet back to help see if this is contributing to her memory loss. In the future, we could cut back her Lyrica to see if this might be making her memory worse. Between her Xanax, and her Lyrica and her opioids (and she may be on Ambien at home) she has reasons for possible drug induced memory loss. This would not explain her staring episodes, nor any gait abnormality. I will follow with you.
[2017-04-07] MEDS: Pregabalin CAP(*) 100 MG PO SCH (21:14)
[2017-04-07] MEDS: Lidocaine Patch REMOVE* 1 NOTE MISC PATCH OFF SCH (21:25)
--- NOTE | 2017-04-07 22:19 | CONS ---
CONSULTATION REPORT: DATE OF CONSULT: ATTENDING PHYSICIAN: Maria Isabel Molina NP CONSULTING PHYSICIAN: Jesse Starkey MD REASON FOR CONSULT: Nonfocal neurological symptoms. SUBJECTIVE HISTORY: Psychiatry is asked to see this 52-year-old - Ethiopian female with a history of depression and chronic pain, admitted to the medical service with complaints of worsening retro and anterograde amnesia, gait instability and staring spells following an alleged fall down stairs in July of this year. Since admission, the patient has continued to be symptomatic. An MRI of her brain was ordered by the consulting neurology team, but was within normal limits and initial EEG was negative followed by longer term video monitored EEG, which similarly did not show epileptiform activity even during an episode of staring when the patient was deemed to be symptomatic. I was able to speak with the nurse practitioner, Ms. Molina, who indicated that Neurology had suggested that Psychiatry be consulted due to possible psychogenic etiology. The nurse practitioner also indicated that the patient had displayed a weak unsteady gait but that staff had noted that her gait improved significantly when she was not being monitored or assisted by physical therapy. When I meet the patient, she had just been transferred from the ICU to [address] [place] [address] where she is alone in her room. She is calm and cooperative and agrees to answer questions. I will note that many of her responses are either "I don't know", "I don't remember or "I don't recall." The patient's account is that she has recently been staying with her daughter and that her family would notice her having episodes where she either stared into space or left their property to walk over to neighbors. The patient claims to have no recollection of these events. She does state that she fell down a flight of stairs after tripping over her cat in July of 2016 and states "everything went blank after that. I feel like I am completely new to [place]. It is like I have never been here before." I asked her about psychosocial stressors in her life and at first she appears to not understand what I am asking. When I clarify, she does indicate that her mother recently and also one of her sisters, but she does not remember the dates of their deaths, and in fact does not even remember the years. She denies any history of paranoia or psychosis or manic symptoms, but does indicate that she has been depressed and receiving treatment from her primary care provider, Dr. Gera Nogueira, in the community. When I screened her for neurovegetative symptoms of depression, she denies sleep disturbance, anhedonia, guilt, appetite, disturbance, psychomotor retardation or suicidal ideation, but she does endorse energy and concentration deficits. Interestingly, I ran into Dr. Manjit Mckeon on the unit outside her room who happens to be a exterminator helper provider for her pain issues in the community. He notes that he has never seen her have any memory disturbance in the past but that she does have 2 separate and somewhat spurious workman's compensation claims. He also indicated that her current opioid pain medications are significantly greater than that which she typically takes and he will apparently be consulting later this afternoon for that issue. PSYCHIATRIC HISTORY: The patient denies any psychiatric hospitalizations. She denies any past history of suicidal ideations or any history of homicidality. She does indicate that Dr. Nogueira has been treating her for depression. I note from her med list that she is currently taking Cymbalta, Xanax and Ambien as per her outpatient regimen. She also admits to me that Dr. Nogueira referred her to the local psychiatrist, Dr. Pérez Smith, once and that Dr. Smith put her on augmentation strategy with Abilify, but that she had an allergic reaction to this medication and never went back to him for any further consultation. She denies any history of traumatic events in her life, abuse or neglect. She does indicate with some difficulty that she has had a total of 3 lifetime concussions including the event in July of this year. SUBSTANCE ABUSE HISTORY: She denies use of illicit drugs, tobacco products, or alcohol. MEDICAL HISTORY: Significant for hypertension, type 2 diabetes, chronic back pain, section x3, hysterectomy, gastroesophageal reflux disease, history of right foot surgery, history of 2 rotator cuff surgeries. MEDICATIONS: On an outpatient basis include: 1. Meloxicam 7.5 p.o. daily. 2. Percocet 5/325 one tab p.o. q.4 hours p.r.n. for pain. 3. Xanax 0.5 mg twice daily as a p.r.n. for anxiety. 4. Aspirin 81 mg p.o. daily. 5. Diltiazem XT 180 mg p.o. b.i.d. 6. Cymbalta 60 mg p.o. daily. 7. Lidocaine 5% patch transdermally once daily. 8. Lisinopril 10 mg p.o. daily. 9. Morphine ER 15 mg every 12 hours as a p.r.n. for pain. 10. Pregabalin 150 mg p.o. t.i.d. ALLERGIES: She is allergic to PENICILLIN and ARIPIPRAZOLE. FAMILY HISTORY: She indicates that she has a brother, who has been diagnosed with clinical depression. She is unaware of any suicide attempts in the family. SOCIAL HISTORY: This history is difficult to gather given that fact that the patient will often appear confused at the questions, not remember answers or seem to be somewhat evasive. Ultimately I am able to get out of her that she grew up in [place]. She states that she graduated high school but does not remember the name of the high school. When I ask her about college, she states "I don't think so." She is able to tell me that she was once and and that she has 3 children, but she cannot remember her children's ages and struggles even to remember their names. Initially when I ask her about grandchildren, she states she does not remember but when I later ask again she states that she has 2 grandchildren. When I ask her her last employment, she again states that she does not remember and claims to not even remember what she did for living. She is able to state that she is currently on workmen's compensation. It is uncertain when these workmen's comp cases are set to . She denies being on disability or social security income but states that somebody brought that up with her this morning. When I ask about the , she responds "I doubt it." When I ask her if she is catholic or spiritual, she states "I don't think so." Currently she is single and not in a relationship. She believes that she is heterosexual, she is unaware of any formal legal history. MENTAL STATUS EXAM: The patient is a middle-aged -Ethiopian female who has a purple bandana on and eye glasses. She is lying propped up in a medical bed wearing scrubs and under her covers. She makes good eye contact. She is calm, cooperative, fairly easy to establish a rapport with although on some occasions she seemed somewhat suspicious of this observer. Her speech is halting at times as though she is having difficulty finding words to say. Mood is depressed with a somewhat constricted affect. Thought process appears to be linear and goal directed. Thought content is significant for her desire to be helped by the hospital. She denies suicidal or homicidal ideation. She denies auditory or visual hallucinations and there is no evidence of paranoia or delusions. Insight and judgement appear to be poor given the fact that she is likely to be deliberately producing or exaggerating symptoms. Cognitively, she is awake and alert with what would appear to be an average intellect. She does show gross memory disturbance of both in a retrograde and anterograde nature and she has extreme deficits in autobiographical memory. DIAGNOSES: [place] I: Factitious disorder, rule out malingering, rule out conversion disorder. Major depressive disorder by history. [place] II: Deferred. ASSESSMENT: The patient is a 52-year-old -Eth[place]ian female with a history of depression and chronic pain, currently admitted to the medical service with complaints of worsening retrograde and anterograde amnesia, gait instability and staring spells following an alleged fall down a flight of stairs in July of this year. Both MRI and extended video monitored EEG were negative strongly suggesting a psychogenic etiology. There is also evidence from staff and clinical observations that the patient seems to exaggerate her symptoms such as walking seemingly without difficulty when she perceives that she is not monitored. This history is consistent with the examination in that the patient does seem to be feigning, producing or exaggerating symptoms particularly with regard to her memory. It should be noted that this clinician has worked with numerous victims of traumatic brain injury and her presentation would be extremely unusual for that pathology. I do not believe that this issue is organic in nature. In terms of the differential diagnosis, I think that conversion disorder is the least likely given the fact that it would appear that she has conscious volition in terms of her symptoms. The question is more whether she is malingering for secondary gain or whether she has factitious disorder and is feigning symptoms for primary gain of playing the sick role. My guess is that factitious disorder is the most likely etiology and that she is seeking attention perhaps from her family, although again I cannot rule out that she is feigning symptoms for the secondary gain of being placed on disability. RECOMMENDATIONS TO PRIMARY TEAM: The patient is not suicidal nor homicidal and I do not believe that psychiatric inpatient care is warranted. Factitious disorder is typically treated in the outpatient setting with psychotherapy and I would recommend that a social work consult be ordered in order to make her followup appointments with outpatient psychiatric services. I understand that she has a Neuropsychology appointment out of town in May of this year and I would encourage her to follow through with that given the fact that neuropsychological testing can be highly sensitive to rule out malingered conditions. No further psychiatric workup is warranted at this time and Psychiatry will be signing off the case; however, we can be reconsulted in the event that the patient's situation or presentation changes. This is a difficult and very interesting case and Psychiatry thanks you for allowing us to participate in the patient's care. [id number]/[facility] #: [id number] TOYA
[2017-04-08] MEDS: oxyCODONE/Acetamin 5/325 MG* TAB PO PRN ×4 (00:19→14:53)
[2017-04-08] MEDS: Heparin VIAL(*) 5000 UNITS/ML VIAL (FIVE THOUSAND) SUBCUT SCH ×2 (05:43→14:53)
--- NOTE | 2017-04-08 06:01 | PN ---
NEUROLOGICAL FOLLOWUP NOTE: DATE OF VISIT: 04/07/17 PATIENT OF: Maria Isabel Molina NP and Dr. William. HISTORY: I am seeing Alethea today in followup for her abnormal spells and her gait abnormality. She is off her Keppra since yesterday. She is on aspirin, Cardizem, Cymbalta, lisinopril, Mobic, morphine, Percocet, and Lyrica as before. She has no new complaints. She notes that her walking is off and she does not remember if she had any spells or not. The nurses were not aware of any spells this morning, but there was a spell that was characterized as unresponsive staring spell last evening at 6 p.m. She also notes that she has had some problems walking again today. PHYSICAL EXAMINATION: Temperature 98.5, pulse 79, respirations 21, blood pressure 113/82. She is alert and oriented with normal speech and comprehension. Cranial nerves II through XII are intact. Motor exam revealed normal tone and strength. When she stood and transferred from chair to bed, she bent over and then got extremely wobbly and almost moving herself from side-to- side. She then was able to crawl smoothly into her bed, but then was on all fours and began to sway significantly one side to the other. She was able to at that point probably smoothly turn herself and lie down against her pillows. She was able to reach for things smoothly. When I asked her to do [id number] , she could not bring her heel to her knee, she lifted, but she used her arms to try to bend her leg, which was stiff and rigid. When I did passive range of movement, though at another time, she was not. She has normal tone. She also had good and full strength on direct strength testing in her legs. Chest: Clear. Cardiovascular: Regular rate and rhythm. DIAGNOSTIC STUDIES: Her video EEG, Dr. William reviewed the episode last night, which did not show any electro-graphic changes during her spell and is characterized as a nonepileptiform event. Her entire EEG has not yet been reviewed. ASSESSMENT AND PLAN: I discussed with Alethea that her spells were likely due to stress and that we would have a psychiatrist come and evaluate her. I have discussed this game plan with Dr. William, who thought it was reasonable. I also discussed that her walking may be partially related to stress and we would have Physical Therapy help mobilize her. If she was able to function, then she will hopefully go home in the near future with close followup with Dr. William. [id number]/[facility] #: [id number]
--- NOTE | 2017-04-08 09:38 | PN ---
Subjective Date of Service: 04/08/17 Interval History: Patient seen and examined at bedside. Pt denies fever, chills, chest discomfort , N/V/D. Pt reports mild shortness of breath with exertion. Pt is able to state the date and her full name without difficulty. Pt is able to recite the alphabet , but continues to have errors (skipped letters), this is improving. Pt is requesting to speak with social work today. Family History: Unchanged from Admission Social History: Unchanged from Admission Past Medical History: Unchanged from Admission Objective Active Medications: Acetaminophen (Tylenol Tab*) 650 mg PO Q6H PRN Reason: PAIN Alprazolam (Xanax Tab*) 0.5 mg PO BID PRN Reason: ANXIETY Aspirin (Aspirin Ec Low Dose*) 81 mg PO DAILY [facility] Diltiazem HCl (Cardizem Cd Cap*) 180 mg PO BID [facility] Duloxetine HCl (Cymbalta Cap*) 60 mg PO DAILY [facility] Heparin Sodium (Porcine) (Heparin Vial(*)) 5,000 units SUBCUT Q8HR [facility] Lidocaine (Lidoderm 5% Patch*) 1 patch TRANSDERM DAILY [facility] Lisinopril (Prinivil Tab*) 10 mg PO DAILY [facility] Meloxicam (Mobic(Nf)) 7.5 mg PO DAILY [facility] Morphine Sulfate (Ms Contin(*)) 15 mg PO Q12HR PRN Reason: PAIN Oxycodone/Acetaminophen (Percocet 5/325 Tab*) 1 tab PO Q4H PRN Reason: PAIN Pharmacy Profile Note (Lidocaine Patch Remove*) 1 note PATCH OFF BEDTIME [facility] Pregabalin (Lyrica Cap(*)) 100 mg PO TID [facility] Vital Signs - 8 hr 04/08/17 04/08/17 04/08/17 02:36 02:46 05:44 Temperature 98.6 F Pulse Rate 74 Respiratory 20 18 20 Rate Blood Pressure 119/68 (mmHg) O2 Sat by Pulse 99 Oximetry 04/08/17 04/08/17 04/08/17 07:22 08:00 08:20 Temperature 98.2 F Pulse Rate 85 Respiratory 16 18 16 Rate Blood Pressure 98/68 (mmHg) O2 Sat by Pulse 96 Oximetry Oxygen Devices in Use Now: None Appearance: NAD, sitting up in bed Ears/Nose/Mouth/Throat: Mucous Membranes Moist Respiratory: Symmetrical Chest Expansion and Respiratory Effort, Clear to Auscultation Cardiovascular: NL Sounds; No Murmurs; No JVD, RRR Abdominal: NL Sounds; No Tenderness; No Distention Extremities: No Edema Skin: No Rash or Ulcers Neurological: Alert and Oriented x 3, NL Muscle Strength and Tone Lines/Tubes/Other Access: Clean, Dry and Intact Peripheral IV - site benign Nutrition: Taking PO's Result Diagrams: 04/04/17 20:55 04/04/17 22:01 Additional Lab and Data: . Assess/Plan/Problems-Billing Ms. Brumfield is a 52 y/o F w/ hx of HTN, diabetes, hx of episodes of loss of consciousness which resulted in concussion in 07/2016 w/ a sequela of worsening confusion who presented to the emergency room for staring spells suspicious for seizure. - Patient Problems (1) Confusion Current Visit: Yes Status: Acute Code(s): R41.0 - DISORIENTATION, UNSPECIFIED SNOMED Code(s): 046949314 Comment: - Confusion continues to improve. - Patient has seen Dr. William in the past who felt that there may be a psychogenic component and referred her to a neuropsychiatrist in [place]. - Dr. Ceballos consulted, input appreciated. - MRI of brain negative. - EEG and manager intermediate monitor with no seizure activity noted. - Continue neurochecks and frequent reorientation. - Psych consult, input appreciated (2) Chronic pain Code(s): G89.29 - OTHER CHRONIC PAIN SNOMED Code(s): 91842092 Comment: - Secondary to recent rotator cuff surgery. - Continue morphine, Lyrica, mobic and PRN percocet (decreased to 1 tab PRN). (3) Diabetes Code(s): E11.9 - TYPE 2 DIABETES MELLITUS WITHOUT COMPLICATIONS SNOMED Code(s) : 23097797 Comment: - Consistent carb diet. (4) Anxiety and depression Code(s): F41.8 - OTHER SPECIFIED ANXIETY DISORDERS SNOMED Code(s): 355071429 Comment: - Continue duloxetine and PRN Xanax (5) HTN (hypertension) Code(s): I10 - ESSENTIAL (PRIMARY) HYPERTENSION SNOMED Code(s): 50924443 Comment: - Normotensive. - Controlled with lisinopril and cardizem. (6) DVT prophylaxis Code(s): RCP4978 - SNOMED Code(s): 685623203 Comment: - SQ Heparin (7) Full code status Code(s): Z78.9 - OTHER SPECIFIED HEALTH STATUS SNOMED Code(s): 437155585 Status and Disposition: Inpatient. Stable for discharge to home later today after PT eval.
[2017-04-08] MEDS: Aspirin EC Low Dose* 81 MG TAB.EC PO SCH (09:48)
[2017-04-08] MEDS: DULoxetine DR CAP* 60 MG CAP.DR PO SCH (09:49)
[2017-04-08] MEDS: Lisinopril TAB* 10 MG PO SCH (09:49)
[2017-04-08] MEDS: Lidocaine PATCH 5%* 1 PATCH TRANSDERM SCH (09:49)
[2017-04-08] MEDS: Diltiazem CD CAP* 180 MG PO SCH (09:49)
[2017-04-08] MEDS: Pregabalin CAP(*) 100 MG PO SCH ×2 (09:49→14:52)
[2017-04-08] MEDS: ALPRAZolam TAB* 0.5 MG PO PRN (09:51)
[2017-04-08] MEDS: CMCS: Meloxicam(NF) 7.5 MG TAB PO SCH (09:53)
[2017-04-08 19:40] VITALS: BP 114/82
--- NOTE | 2017-04-09 01:14 | DS ---
CC: Dr. Gera Nogueira; Dr. Debra William * DISCHARGE SUMMARY: DATE OF ADMISSION: 04/05/17 DATE OF DISCHARGE: 04/08/17 ATTENDING PHYSICIAN: Dr. Paulino Mclaughlin * (dictated by Maria Isabel Mireles NP) . PRIMARY DIAGNOSIS: Altered mental status, suspect psychogenic in nature, but continues to have an unclear cause. SECONDARY DIAGNOSES: 1. Chronic pain. 2. History of anxiety. 3. History of diet controlled diabetes mellitus. 4. Hypertension. 5. Depression. CONSULTATIONS WHILE IN THE HOSPITAL: Dr. Jovany Ceballos with Neurology; Dr. Jesse Starkey with Psychiatry; Dr. Manjit Mckeon with Pain Clinic. STUDIES WHILE IN THE HOSPITAL: 1. A brain CT on 04/04/17. Radiologist's impression: No evidence for acute intracranial abnormality. 2. Brain MRI on 04/05/17. Radiologist's impression: Negative exam. 3. Electroencephalogram on 04/06/17. Necrologist's clinical impression: This awake and drowsy EEG shows no epileptiform potentials. There is persistent inconsistent asymmetries of background. 4. Electroencephalogram from 04/07/17. Neurologist's impression: This is a normal long-term video EEG. Beta activity is an expected finding in the setting of benzodiazepine use. There are no epileptiform abnormalities or focal features. The patient experienced an event of staring and unresponsiveness during this recording which was not associated with any abnormal EEG activity. This event was nonepileptic in nature. DISCHARGE MEDICATIONS: Continued home medications: 1. Xanax 0.5 mg oral twice daily as needed for anxiety. 2. Diltiazem 180 mg oral twice daily. 3. Lyrica 150 mg oral 3 times daily. 4. Lidocaine patch 5% one transdermal daily. 5. Aspirin 81 mg oral daily. 6. Lisinopril 10 mg oral daily. 7. Duloxetine 60 mg oral daily. 8. Morphine extended release 15 mg oral every 12 hours. 9. Meloxicam 7.5 mg oral daily. 10. Oxycodone/acetaminophen 5/325 one tablet oral every 4 hours as needed for pain. HISTORY OF PRESENT ILLNESS/HOSPITAL COURSE: Ms. Brumfield is a 52-year-old female with past medical history significant for hypertension, diet controlled diabetes mellitus, multiple concussions with the most recent happening in July of 2016 after falling downstairs. Since July, the patient has had confusion at times and some memory loss. According to the patient's daughter, she has had decreasing memory problems, although it was starting to get better until she had a surgical procedure on March 17, and then she noticed that she again started developing worsening memory problems and having staring episodes that were more increased since they had been in July. The patient was seen in consultation by Dr. William on January 11 at which time she scored quite poorly on the MoCA and it was reported that she scored poorly on the MMSE as well. Dr. William did not feel that her symptoms were attributed to concussion and possibly they were psychogenic and/or related to polypharmacy. Plans have been made to refer the patient to Dr. Márquez who is a clinical neuropsychologist in [place]. The patient's daughter reports she has an appointment scheduled in May which was the soonest appointment she could schedule. We have been trying to move up the appointments, but this has been impossible. The patient also had an EEG back in November which was normal and an MRI in August of 2016 that showed nonspecific foci of increased FLAIR signal compared with March of 2008. Due to the patient's increase in unresponsive episode, her daughter brought her to the emergency room for further evaluation. While in the emergency room, Ms. Brumfield had labs that showed no acute abnormalities. She had a tox screen that was positive for opioids and benzodiazepines both of which she has prescriptions for. The case was reviewed with Dr. Ceballos with Neurology who recommended observing the patient, getting an EEG, possible MRI, and Keppra loading. While in the hospital, the patient was seen in consultation by Dr. Ceballos. Her MRI and brain CT were both negative. De. Ceballos recommended an EEG and to continue with Keppra. The patient had an EEG that was normal, so her Keppra was stopped. The patient continued to have unresponsive staring episodes, so she was transferred to the ICU for predatory animal exterminator video monitoring. The patient was monitored for almost 24 hours with the video EEG during which time she had one of her unresponsive staring episodes with no signs of seizure activity during the episode. The patient was then seen in consultation by Dr. Jesse Starkey with Psychiatry as it was felt that the patient's nonfocal neurological symptoms may be secondary to an underlying psychiatric disorder. In the past she had seen Dr. Smith, but did not care for him, so she stopped following up with him. Dr. Starkey felt that the patient should keep her Neuropsychiatry appointment in addition to have outpatient Psychiatry followup. He felt that some possible differential diagnoses could be factitious disorder followed by malingering followed by conversion disorder. He felt that this most likely represented a factitious disorder. The patient was also seen in consultation by Dr. Mckeon as he has interacted with her in the past in the Pain Clinic to determine if she could be further titrated down in any of her medications. We were advised to decrease her Percocet to see if this assisted with her memory loss and in the future it was also recommended to cut back her Lyrica to see if this improved her memory. It was felt that her Lyrica and other opiates could be contributing to her memory loss, but would not explain her staring episodes or her gait abnormalities. The patient on the morning of April 08 was ambulating independently in a room, doing well. She had a physical therapy evaluation to make sure that she was able to do stairs as she reported living with her brother who had a flight of stairs. When the patient was taken into the stairs with physical therapy, she was able to ambulate down the stairs and when she got 3 steps from the top, she started complaining of her knees buckling and she was assisted to the stairs and she resulted in no injuries. The patient was later ambulating in her room with a mostly steady gait independently. The patient's daughter came and we discussed her diagnoses and she felt comfortable taking her mom home to her house where there are no stairs. Ms. Brumfield is stable for discharge to home today. Vital signs are as follows: Temperature 98.7, heart rate 89, respiratory rate 16, O2 sat 94% on room air, and blood pressure 114/82. DISCHARGE PLAN: Ms. Brumfield will be discharged to home. Activity as tolerated. She has been instructed to avoid stairs. Should be on a consistent carbohydrate regular diet. As far as the patient's unresponsive episodes with staring, I suspect there is an underlying psychogenic cause such as factitious disorder. I have recommended the patient to call the [facility] on Monday to self refer for an appointment and she has agreed to do this. Additionally, the patient should follow up with her currently scheduled Neuropsychiatry appointment that she has in May. She will need to be seen again by Dr. William after she has been seen by they Neuropsychiatrist. The patient should be seen in follow up with her primary care provider, Dr. Nogueira. His office will call her early next week to set up a followup appointment. She has been instructed to call if she has not heard from him next week. The patient has been asked to avoid stairs and to stay living with her daughter while her gait is unsteady as the daughter lives in a single story home. The patient has been resumed on her usual home medications. We have had a discussion about the need to possibly titrate her Lyrica and then I am going to defer this back to the Pain Clinic to assist her with. I have asked the patient to work on weaning herself off of the Percocet that she is currently on status post her shoulder surgery. I have also recommended that the patient keep a diary of her unresponsive episodes as to possibly help correlate what is going on. The patient has been asked to return to the emergency room for any chest pain or shortness of breath. TIME SPENT: Time for this discharge was approximately 60 minutes, greater than half of that was spent with the patient and daughter discussing medications, discharge instructions, diagnosis, and plan of care. CONDITION ON DISCHARGE: Stable. Reviewed by LORENA RAMOS 04/11/172005 [id number]/[facility] #: [id number] TOYA
== END 2017-04-08 22:10 | disposition home or self-care (01) | DRG 752 ==
LOC: ED 19:25 → MED 22:43 → OBSVTOIN 04-05 16:02 → ICU 04-06 14:20 → MED 04-07 15:09
PROVIDERS: ADMIT Internal Medicine; ATTEND Internal Medicine
PROC: 4A10X4Z Monitoring of Central Nervous Electrical Activity, External Approach (ICD-10-PCS; principal; 2017-04-06)
PROC: 4A00X4Z Measurement of Central Nervous Electrical Activity, External Approach (ICD-10-PCS; 2017-04-07)
DX: F68.10 Factitious disorder imposed on self, unspecified (principal); E11.9 Type 2 diabetes mellitus without complications; G89.29 Other chronic pain; I10 Essential (primary) hypertension; F32.9 Major depressive disorder, single episode, unspecified; R41.3 Other amnesia; R26.9 Unspecified abnormalities of gait and mobility; R41.0 Disorientation, unspecified; M25.511 Pain in right shoulder; K21.9 Gastro-esophageal reflux disease without esophagitis; M19.90 Unspecified osteoarthritis, unspecified site; F41.0 Panic disorder [episodic paroxysmal anxiety]; R40.2412 Glasgow coma scale score 13-15, at arrival to emergency department; F41.8 Other specified anxiety disorders; M54.5 Low back pain; Z79.82 Long term (current) use of aspirin; Z79.891 Long term (current) use of opiate analgesic; Z90.710 Acquired absence of both cervix and uterus; Z88.0 Allergy status to penicillin; Z88.8 Allergy status to other drugs, medicaments and biological substances; Z82.49 Family history of ischemic heart disease and other diseases of the circulatory system; Z80.42 Family history of malignant neoplasm of prostate; Z80.3 Family history of malignant neoplasm of breast; Z56.0 Unemployment, unspecified; Z81.8 Family history of other mental and behavioral disorders
CPT/HCPCS: 36415; 70450; 70551; 80053; 80307; 81003; 81015; 83735; 85025; 85610; 87086; 93005; 95816; 95951; A9270-GY; G0378; J1644

== ENCOUNTER 2017-09-19 12:47 | Emergency (ER) | payer OTHER ==
[2017-09-19] MEDS ORDERED: Lidocaine PATCH 5%* 1 PATCH TRANSDERM ONE (13:25)
[2017-09-19] MEDS ORDERED: Ketorolac INJ* 60 MG/2 ML VIAL IM ONE (13:25)
[2017-09-19] MEDS ORDERED: predniSONE TAB* 20 MG PO ONE (13:25)
--- NOTE | 2017-09-19 15:45 | RAD ---
INDICATION: Low back pain, left leg weakness. COMPARISON: Comparison is made with a prior MRI of the lumbar spine from November 21, 2013. TECHNIQUE: Axial and sagittal T1 and T2 and coronal T2-weighted images of the lumbar spine were obtained. FINDINGS: The vertebra are in normal alignment. No significant focal bony abnormality or fracture is seen. At the L4-L5 level there is a minimal broad-based disc bulge and mild to moderate hypertrophic changes within the facet joints which causes mild spinal canal narrowing. There is mild neural foraminal narrowing on the left side. These findings have progressed slightly from the prior study. At the L5-S1 level there is a mild broad-based disc bulge and moderate hypertrophic changes within the facet joints. No significant spinal canal narrowing is present. Neural foramen appear patent on both sides. IMPRESSION: MILD DEGENERATIVE DISC DISEASE AND FACET OSTEOARTHRITIS AT THE L4-L5 AND L5-S1 LEVELS.
[2017-09-19 17:52] VITALS: BP 143/95
[2017-09-19] MEDS ORDERED: Lidocaine Patch REMOVE* 1 NOTE MISC SCH (21:00)
--- NOTE | 2017-10-03 07:32 | ED ---
Catherine Lua Rebecca, scribed for Jasson Foreman MD on 09/19/17 at 1409 . Back Pain - HPI Summary HPI Summary: Pt is a 52 y/o F with a PMHx of chronic back pain ROXANA who presents to ED c/o acute on chronic lumbar back pain s/p fall. Today, while at physical therapy for her shoulder her left knee "buckled" and she fell on her back. Pt states that she has had 10/10 pain for "a long time" but became worse today when she fell. Pain radiates down the LLE. Sx aggravated by movement, alleviated by nothing. Additionally c/o chronic LLE weakness with foot drop and chronic memory loss. Denies acute knee pain and incontinence. On 10/04/2013 the pt had somebody fall on her while working, causing left-sided injury and pain, particularly the back. She has been following up with pain management and saw a specialist in [place] in April. She has previously been on Hydrocodone, Morphine, and Lyrica though the specialist in [place] took her off the opioids. Is currently taking Lyrica, Mobic, and Robaxin. Has been ordered a walker due to LLE weakness, though she has not been able to get it yet due to its needing to be approved by worker's compensation. She believes her last MRI was "a while" ago and she has never had a nerve block or epidural for pain. Was seen by Dr. Mckeon in June, July, August and this month for the pain. - History of Current Complaint Chief Complaint: EDBackInjuryPain Stated Complaint: BACK PAIN Time Seen by Provider: 09/19/17 13:02 Hx Obtained From: Patient Onset/Duration: Still Present, Worse Since - Fall today Onset/Duration: Still Present Back Pain Location: Is Discrete @ - Lumbar back, Radiates To - Down LLE Severity Currently: Severe Pain Intensity: 10 Pain Scale Used: 0-10 Numeric Aggravating Symptom(s): Movement Alleviating Symptom(s): Nothing Associated Signs And Symptoms: Positive: Weakness - LLE, chronic. Negative: Bladder Incontinence, Bowel Incontinence - Allergies/Home Medications Allergies/Adverse Reactions: Allergies Allergy/AdvReac Type Severity Reaction Status Date / Time aripiprazole [From Abilify] AdvReac Intermediate Talks colton Verified 09/15/17 11:16 Penicillins AdvReac Unknown Rash Verified 09/15/17 11:16 PMH/Surg Hx/FS Hx/Imm Hx Endocrine/Hematology History: Reports: Hx Diabetes - type II, controlled with diet, Hx Anemia - not during Denies: Hx Anticoagulant Therapy, Hx Thyroid Disease Cardiovascular History: Reports: Hx Hypertension - uses medication, well controlled, Hx Syncope Denies: Hx Congestive Heart Failure, Hx Coronary Artery Disease, Hx Embolism , Hx Pacemaker/ICD Respiratory History: Denies: Hx Asthma, Hx Chronic Obstructive Pulmonary Disease (COPD) GI History: Reports: Hx Gastroesophageal Reflux Disease Denies: Hx Ulcer History: Denies: Hx Renal Disease Musculoskeletal History: Reports: Hx Arthritis, Hx Back Problems - chronic low back pain, Hx Orthopedic Injury - left rotator cuff tear/repair, Hx Tendonitis, Other Musculoskeletal History - podiatric surgery right foot Sensory History: Reports: Hx Contacts or Glasses - glasses Denies: Hx Deafness, Hx Hearing Aid Opthamlomology History: Reports: Hx Contacts or Glasses - glasses Neurological History: Reports: Hx Headaches, Hx Seizures, Other Neuro Impairments/Disorders - CHRONIC BACK PAIN Denies: Hx Dementia Psychiatric History: Reports: Hx Anxiety, Hx Depression, Hx Panic Disorder - ANXIETY Denies: Hx Eating Disorder, Hx of Violent Episodes Against Others, Hx Substance Abuse - Surgical History Surgery Procedure, Year, and Place: left rotator cuff repair Mar 2016 [facility] [place], right rotator cuff repair 2010, right rotator cuff repair Mar 2017. [facility] 1985,1987,1989 [facility]. Hysterectomy 1997 [facility] [place]. Podiatric surgery right foot [facility] Hx Anesthesia Reactions: No - Immunization History Date of Tetanus Vaccine: UNK Date of Influenza Vaccine: UNK Infectious Disease History: No Infectious Disease History: Denies: Hx Hepatitis, Hx Human Immunodeficiency Virus (HIV), Traveled Outside the [place] in Last 30 Days - Family History Known Family History: Positive: Cardiac Disease - mom , of [place] 71y.o., Other - sister, BRCA 46 y.o. - Social History Alcohol Use: None Hx Substance Use: No Substance Use Type: Reports: None Substance Use Comment - Amount & Last Used: hydrocodone Hx Tobacco Use: No Smoking Status (MU): Never Smoked Tobacco Have You Smoked in the Last Year: No Review of Systems Negative: Fever, Chills Negative: Erythema Negative: Sore Throat Negative: Chest Pain Negative: Shortness Of Breath, Cough Negative: Abdominal Pain, Vomiting, Nausea Negative: dysuria, hematuria, incontinence Positive: Other - Lumbar back pain with radiation down LLE; NEGATIVE: Knee pain. Negative: Myalgia, Edema Negative: Rash Neurological: Other - Chronic memory loss; NEGATIVE: Dizziness Positive: Weakness - Chronic LLE weakness All Other Systems Reviewed And Are Negative: Yes Physical Exam - Summary Physical Exam Summary: Constitutional: Well-developed, Well-nourished, Alert. (-) Distressed Skin: Warm, Dry HENT: Normocephalic; Atraumatic Eyes: Conjunctiva normal Neck: Musculoskeletal ROM normal neck. (-) JVD, (-) Stridor, (-) Tracheal deviation Cardio: Rhythm regular, rate normal, Heart sounds normal; Intact distal pulses; The pedal pulses are 2+ and symmetric. Radial pulses are 2+ and symmetric. (-) Murmur Pulmonary/Chest wall: Effort normal. (-) Respiratory distress, (-) Wheezes, (-) Rales Abd: Soft. (-) Tenderness, ~(-) Distension, (-) Guarding, (-) Rebound Musculoskeletal: Left foot drop, hip flexion was weak on the left side, (-) Edema Lymph: (-) Cervical adenopathy Neuro: Alert, Oriented x3, Strength normal, Cranial nerves II-XII are grossly intact, Reflexes are intact. (-) Dysmetria, (-) Nystagmus, (-) Ataxia by finger to nose testing, (-) Sensory deficit. Psych: Mood and affect Normal Triage Information Reviewed: Yes Vital Signs On Initial Exam: Initial Vitals Temp Pulse Resp BP Pulse Ox 97.2 F 86 18 144/92 99 09/19/17 12:50 09/19/17 12:50 09/19/17 12:50 09/19/17 12:50 09/19/17 12:50 Vital Signs Reviewed: Yes Diagnostics - Vital Signs Vital Signs Temp Pulse Resp BP Pulse Ox 09/19/17 13:36 127/96 09/19/17 13:06 87 122/95 99 09/19/17 12:50 97.2 F 86 18 144/92 99 - Laboratory Lab Statement: Any lab studies that have been ordered have been reviewed, and results considered in the medical decision making process. - Additional Comments Diagnostic Additional Comments: Lumbar Spine MRI: Interpreted by radiologist: MILD DEGENERATIVE DISC DISEASE AND FACET OSTEOARTHRITIS AT THE L4-L5 AND L5-S1 LEVELS. ED physician reviewed this report. Re-Evaluation - Re-Evaluation First Eval Re-Evaluation Time: 16:25 Change: Improved Comment: Pt is feeling better and has been out of bed. Will see if there is a walker in the hospital for her, because hers is tied up with worker's compensation insurance. Will try talking to case manegement about it. Second Eval Re-Evaluation Time: 17:03 Comment: Able to get her a walker and send it home with her. Back Pain Course/Dx - Course Assessment/Plan: Pt is a 52 y/o F with a PMHx of chronic back pain ROXANA who presents to ED c/o acute on chronic lumbar back pain s/p fall. Today, while at physical therapy for her shoulder her left knee "buckled" and she fell on her back. Pt states that she has had 10/10 pain for "a long time" but became worse today when she fell. Pain radiates down the LLE. Sx aggravated by movement. Additionally c/o chronic LLE weakness with foot drop and chronic memory loss. Denies acute knee pain and incontinence. On 10/04/2013 the pt had somebody fall on her while working, causing left-sided injury and pain, particularly the back. She has been following up with pain management and saw a specialist in [place] in April. She has previously been on Hydrocodone, Morphine, and Lyrica though the specialist in [place] took her off the opioids. Is currently taking Lyrica, Mobic, and Robaxin. Has been ordered a walker due to LLE weakness , though she has not been able to get it yet due to its needing to be approved by worker's compensation. She believes her last MRI was "a while" ago. L-Spine MRI showed mild degenerative disc disease and facet osteoarthritis at the L4-L5 and L5-S2 levels. In the ED course, she was given Toradol, Deltasone and a Lidoderm Patch which improved symptoms. Upon reevaluation, her pain has improved and a walker will try to be found for the pt. Successfully found a walker and sent it home with the pt. Pt will be D/C to home with Dx of chronic pain and sciatica and Rx for Toradol, Lidoderm Patch and Deltasone. She understands and agrees. Allergies noted. - Diagnoses Provider Diagnoses: Chronic pain, Sciatica Discharge - Sign-Out/Discharge Documenting (check all that apply): Discharge/Admit/Transfer - Discharge - Discharge Plan Condition: Stable Disposition: HOME Prescriptions: Ketorolac TAB * [Toradol TAB *] 10 mg PO Q6H #20 tab Lidocaine PATCH 5%* [Lidoderm 5% Patch*] 1 patch TRANSDERM DAILY #30 patch predniSONE TAB* [Deltasone TAB*] 50 mg PO DAILY #5 tab Patient Education Materials: Sciatica (ED), Chronic Pain (ED) Referrals: Gera Nogueira MD [Primary Care Provider] - Joy Valle MD [Medical Doctor] - 2 Days [facility] [Outside] - 2 Days Additional Instructions: RETURN TO ED FOR ANY NEW OR WORSENING SYMPTOMS. The documentation as recorded by the Catherine drew Rebecca accurately reflects the service I personally performed and the decisions made by , Jasson Foreman MD.
== END 2017-09-19 17:48 | disposition home or self-care (01) ==
LOC: ED 12:47
DX: M54.40 Lumbago with sciatica, unspecified side (principal); G89.29 Other chronic pain; M51.37 Other intervertebral disc degeneration, lumbosacral region; M47.817 Spondylosis without myelopathy or radiculopathy, lumbosacral region; E11.9 Type 2 diabetes mellitus without complications; I10 Essential (primary) hypertension; Z79.899 Other long term (current) drug therapy; Z88.8 Allergy status to other drugs, medicaments and biological substances; Z88.0 Allergy status to penicillin
CPT/HCPCS: 72148; 96372; 99282; A9270-GY; J1885; J7512

== ENCOUNTER 2017-10-16 15:08 | Emergency (ER) | payer SELFPAY ==
--- OUTSIDE RECORDS SUMMARY | 2017-10-16 15:45 | XMS REPORT ---
:1965 External Reference #:[id number] Author Organization [employer] Address [address] [place] [address] Phone [phone] Care Team Providers Name Role Phone Gera Nogueira MD Primary Care Physician Unavailable Payers Type Date Identification Numbers Payment Provider Subscriber Commercial Policy Number: [id number] Nicolateresita Brumfield Group Name: [id number] [address] PayID: [id number] [place] [address] Medigap Part B Expires: 2016 Policy Number: BS [employer]ets Alethea Brumfield [id number] PayID: [id number] [address] [address] [place] [address] Workers Effective: Policy Number: State Insurance Alethea Brumfield Compensation 2013 [id number] Fund Onset: 2013 Group Number: [id number] [address] [address] PayID: [id number] [address] Workers Compensation Effective: Policy Number: Selective Alethea Novoa Octaviano 2015 [id number] Insurance Onset: 2015 Group Number: [id number] [address] Group Name: [id number] [place] [address] PayID: [id number] Problems Date Description Provider Status Onset: 01/14/2016 Injury of tendon of the rotator cuff of Reza Wilcox MD Active shoulder Onset: 01/14/2016 Localized, secondary osteoarthritis of the Reza Wilcox MD Active shoulder region Onset: 01/14/2016 Injury of shoulder region Reza Wilcox MD Active Onset: 01/14/2016 Neck pain Reza Wilcox MD Active Onset: 05/17/2016 Shoulder-hand syndrome Reza Wilcox MD Active Onset: 08/04/2016 Shoulder joint pain Reza Wilcox MD Active Onset: 08/25/2016 Full thickness rotator cuff tear Reza Wilcox MD Active Onset: 01/11/2017 Postconcussion syndrome Debra William MD Active Onset: 01/11/2017 Impaired cognition Debra William MD Active Family History Date Family Member(s) Problem(s) Comments General Diabetes General Breast Cancer General Thyroid Disease Father Pancreatic Cancer Mother Heart Disease Social History Type Date Description Comments Lives With Brother Occupation Disabled Occupation Resident aide ETOH Use Denies alcohol use Recreational Drug Use Denies Drug Use Smoking Patient has never smoked Exercise Type/Frequency Exercises sporadically Allergies, Adverse Reactions, Alerts Date Description Reaction Status Severity Comments 01/07/2014 Penicillin Urticaria active 03/29/2016 Abilify active Medications Medication Date Status Form Strength Qnty SIG Indications Ordering Provider Diclofenac 09/25/ Active Gel 1% 100gm apply to G89.4 Melanie Sodium 2018 back twice Senner, daily DO Zolpidem / Active Tablets 10mg 1 hs Unknown Tartrate 0000 Diltiazem HCL / Active Caps ER 180mg 1 bid Unknown ER Coated Beads 0000 24HR Lisinopril / Active Tablets 10mg 1 qd Unknown 0000 Cymbalta / Active Caps DR 60mg 1 by mouth Unknown 0000 Part twice daily Alprazolam / Active Tablets 0.5mg Take One Unknown 0000 Tablet By Mouth Twice A Day as Needed For Anxiety Maximum Yohana Methocarbamol / Active Tablets 500mg two tablets Unknown 0000 q6h prn Lidoderm / Active Patches 5% 1 apply to Unknown 0000 affected area 12 hours on, 12 hours off Lyrica / Active Capsules 50mg 1 by mouth Unknown 0000 twice a day Toradol / Active every 6 hrs Unknown 0000 as needed Diclofenac 06/20/ Hx Tablets ER 100mg 30tabs take 1 tab S46.002D Zaneb Sodium ER 2018 - 24HR daily with Brenden 08/09/ food. do 2017 not combine with ibuprofen or mobic Oxycodone HCL 05/04/ Hx Capsules 5mg 60caps 1-2 tabs by Reza 2017 - mouth every Yaseen, 06/23/ 4-6 hours 2017 as needed pain Oxycodone-Aceta 04/19/ Hx Tablets 5-325mg 20tabs take 1 tab S46.002D Reza marshall 2016 - every 4-6 Yaseen, 06/23/ hours as 2017 needed pain do not combine with tylenol Oxycodone-Aceta 04/06/ Hx Tablets 5-325mg 60tabs 1-2 tabs by Reza marshall 2015 - mouth every Yaseen, 04/19/ 6 hours as 2017 needed for pain Clindamycin HCL 04/06/ Hx Capsules 300mg 20caps take one Reza 2015 - tab 4 times Yaseen, 11/16/ a day for 5 2016 days Duloxetine HCL / Hx Caps DR 60mg 1 qd Unknown 0000 - Part 2015 Omeprazole / Hx Capsules 20mg 1 qd Unknown 0000 - DR 2015 Quetiapine / Hx Tablets 100mg 1/2@ hs Unknown Fumarate 0000 - 2015 Alprazolam / Hx Tablets 0.5mg 1 at Unknown 0000 - bedtime 2015 Aspir-81 / Hx Tablets DR 81mg 1 by mouth Unknown 0000 - every day 1955 Hydrocodone-Rocky / Hx Tablets 5-325mg 1 by mouth Unknown taminophen 0000 - every 4-6 05/16/ hours prn. 2017 Lorzone /00/ Hx Tablets 375mg 1 by mouth Unknown 0000 - every day 2016 Mobic 00/ Hx Tablets 7.5mg 1 by mouth Unknown 0000 - every day 2017 Aspir-81 /00/ Hx Tablets DR 81mg 1 by mouth Unknown 0000 - every day 2017 Seroquel /00/ Hx Tablets 25mg 1/2 tab by Unknown 0000 - mouth every 2017 Baclofen /00/ Hx Tablets 10mg Sanito, 0000 - Kaushik, 2016 Lyrica /00/ Hx Capsules 150mg 3x a day Unknown 0000 - 2017 Lidocaine / Hx Patches 5% Apply Patch Unknown 0000 - To Left Shoulder 2017 Once Daily as Directed Remove For 12 Hour Nucynta / Hx Tablets 50mg Take One Unknown 0000 - Tablet By Mouth Every 2016 6 Hours as Needed For Pain Maximum Godwin Hydrocodone-Rocky / Hx Tablets 5-325mg 1 tab by Unknown taminophen 0000 - mouth every 04/14/ 4- 6 hours 2018 as needed pain Morphine / Hx Solution 15mg/ml as needed Unknown Sulfate (PF) 0000 - after shoulder 2017 surgery Medications Administered in Office Medication Date Status Form Strength Qnty SIG Indications Ordering Provider Triamcinolone 10/04/ Administered Injection Zaneb (Kenalog) 2016 MD Brenden Triamcinolone 08/25/ Administered Injection Zaneb (Kenalog) 2016 MD Brenden Triamcinolone 02/17/ Administered Injection Zaneb (Kenalog) 2015 MD Brenden Vital Signs Date Vital Result Comment 09/25/2017 Height 62 inches 5'2" Weight 165.00 lb Heart Rate 86 /min BP Systolic Sitting 113 mmHg BP Diastolic Sitting 76 mmHg Respiratory Rate 16 /min Pain Level 10 O2 % BldC Oximetry 99 % BMI (Body Mass Index) 30.2 kg/m2 08/10/2017 Height 62 inches 5'2" Weight 142.00 lb Heart Rate 88 /min BP Systolic 100 mmHg BP Diastolic 70 mmHg Respiratory Rate 16 /min Body Temperature 97.6 F Pain Level 9 intermittent BMI (Body Mass Index) 26.0 kg/m2 07/13/2017 Height 62 inches 5'2" Weight 142.00 lb Heart Rate 70 /min BP Systolic 130 mmHg BP Diastolic 78 mmHg Respiratory Rate 14 /min Body Temperature 97.9 F Pain Level 9 BMI (Body Mass Index) 26.0 kg/m2 06/20/2017 Height 62 inches 5'2" Weight 146.00 lb BP Systolic 128 mmHg BP Diastolic 78 mmHg Respiratory Rate 20 /min Pain Level 7 BMI (Body Mass Index) 26.7 kg/m2 04/14/2017 Height 62 inches 5'2" Heart Rate 78 /min BP Systolic Sitting 130 mmHg BP Diastolic Sitting 86 mmHg Body Temperature 97.8 F Pain Level 7 02/14/2017 Height 62 inches 5'2" Weight 146.00 lb Heart Rate 82 /min Respiratory Rate 16 /min Body Temperature 98.1 F Pain Level 7 BMI (Body Mass Index) 26.7 kg/m2 01/11/2017 Height 62 inches 5'2" Weight 167.38 lb Heart Rate 74 /min BP Systolic 122 mmHg BP Diastolic 82 mmHg BMI (Body Mass Index) 30.6 kg/m2 12/15/2016 Height 62 inches 5'2" Weight 146.00 lb BP Systolic 118 mmHg BP Diastolic 78 mmHg Respiratory Rate 20 /min Pain Level 8 BMI (Body Mass Index) 26.7 kg/m2 11/17/2016 Height 62 inches 5'2" Weight 146.00 lb Heart Rate 80 /min BP Systolic 135 mmHg BP Diastolic 85 mmHg Body Temperature 98.7 F Pain Level 8 BMI (Body Mass Index) 26.7 kg/m2 10/06/2016 Height 62 inches 5'2" Weight 163.00 lb Heart Rate 83 /min BP Systolic 127 mmHg BP Diastolic 86 mmHg Body Temperature 98.4 F Pain Level 8 BMI (Body Mass Index) 29.8 kg/m2 10/04/2016 Height 61 inches 5'1" Weight 146.00 lb BP Systolic 130 mmHg BP Diastolic 80 mmHg Body Temperature 98.3 F Pain Level 8 BMI (Body Mass Index) 27.6 kg/m2 08/25/2016 Height 61 inches 5'1" Weight 146.00 lb BP Systolic 124 mmHg BP Diastolic 74 mmHg Respiratory Rate 15 /min Body Temperature 97.0 F Pain Level 8 BMI (Body Mass Index) 27.6 kg/m2 08/11/2016 Height 61 inches 5'1" Weight 146.00 lb Heart Rate 83 /min BP Systolic 117 mmHg BP Diastolic 80 mmHg Body Temperature 95.8 F Pain Level 8 BMI (Body Mass Index) 27.6 kg/m2 08/04/2016 Height 61 inches 5'1" Weight 146.00 lb Heart Rate 92 /min BP Systolic 114 mmHg BP Diastolic 79 mmHg Pain Level 9 BMI (Body Mass Index) 27.6 kg/m2 06/24/2016 Height 61 inches 5'1" Weight 146.00 lb Heart Rate 72 /min Respiratory Rate 16 /min Pain Level 9 BMI (Body Mass Index) 27.6 kg/m2 05/17/2016 Height 61 inches 5'1" Weight 146.00 lb Heart Rate 60 /min Respiratory Rate 16 /min Pain Level 9 BMI (Body Mass Index) 27.6 kg/m2 04/19/2016 Height 61 inches 5'1" Weight 146.00 lb Respiratory Rate 16 /min Body Temperature 98.9 F Pain Level 4 BMI (Body Mass Index) 27.6 kg/m2 03/29/2016 Height 61 inches 5'1" Weight 146.00 lb Heart Rate 60 /min BP Systolic Sitting 118 mmHg BP Diastolic Sitting 70 mmHg Respiratory Rate 16 /min Pain Level 8 BMI (Body Mass Index) 27.6 kg/m2 03/17/2016 Height 61 inches 5'1" Weight 146.00 lb Respiratory Rate 16 /min Pain Level 8 BMI (Body Mass Index) 27.6 kg/m2 02/18/2016 Height 61 inches 5'1" Weight 146.00 lb Respiratory Rate 16 /min Pain Level 8 BMI (Body Mass Index) 27.6 kg/m2 01/14/2016 Height 61 inches 5'1" Weight 146.00 lb Respiratory Rate 16 /min Pain Level 5 BMI (Body Mass Index) 27.6 kg/m2 12/15/2015 Height 61 inches 5'1" Weight 146.00 lb BP Systolic 112 mmHg BP Diastolic 78 mmHg Pain Level 3 BMI (Body Mass Index) 27.6 kg/m2 01/07/2014 Height 62 inches 5'2" Weight 159.00 lb Heart Rate 62 /min BP Systolic Sitting 140 mmHg BP Diastolic Sitting 70 mmHg Pain Level 10 back &L leg BMI (Body Mass Index) 29.1 kg/m2 Results Test Date Test Result H/L Range Note Laboratory test finding 09/25/2017 Hemoglobin A1c (Glyco <pending> HGB) Laboratory test finding 04/06/2016 Point of Care Glucose 131 mg/dL High 74 -106 1 1 Sql Ssrs Developer: [id number] ADAMS ARACELI Procedures Date CPT Code Description Status 04/06/2017 46164 EEG Monitoring & Video Recording Completed 04/05/2017 93945 EEG Recording Awake & Drowsy Completed 12/02/2016 32270 EEG Recording Awake & Drowsy Completed 10/04/201661080 Inject/Drain Joint/Bursa Major W/O US Completed 08/25/201622661 Inject/Drain Joint/Bursa Major W/O US Completed 04/06/2016 54997 Tenodesis Biceps Long Tendon Completed 04/06/2016 99829 Tenodesis Biceps Long Tendon Completed 04/06/2016 86623 Tenodesis Biceps Long Tendon Completed 04/06/2016 35333 Tenodesis Biceps Long Tendon Completed 04/06/2016 16635 Arthroscopy Shoulder Debridement Limited Completed 04/06/2016 11984 Arthroscopy Shoulder Debridement Extensive Completed 04/06/2016 03253 Arthroscopy Shoulder Debridement Extensive Completed 04/06/2016 07790 Arthroscopy Shoulder Debridement Extensive Completed 04/06/2016 65107 Arthroscopy,Shoulder,Distal Claviculectomy Incl Dist Completed Articular SR 04/06/2016 86376 Arthroscopy,Shoulder,Distal Claviculectomy Incl Dist Completed Articular SR 04/06/2016 37035 Arthroscopy Shoulder,W/Rotator Cuff Repair Completed 04/06/2016 54664 Arthroscopy Shoulder,W/Rotator Cuff Repair Completed 04/06/2016 03575 Arthroscopy Shoulder,W/Rotator Cuff Repair Completed 04/06/2016 38641 Arthroscopy Shoulder,W/Rotator Cuff Repair Completed 04/06/2016 87675 Arthroscopy,Shoulder Decompression Of Subacromial Space Completed W/Acromio 04/06/2016 76759 Arthroscopy,Shoulder Decompression Of Subacromial Space Completed W/Acromio 04/06/2016 88519 Arthroscopy,Shoulder Decompression Of Subacromial Space Completed W/Acromio 04/06/2016 48030 Arthroscopy,Shoulder Decompression Of Subacromial Space Completed W/Acromio 04/06/2016 65208 Arthroscopy,Shoulder,Distal Claviculectomy Incl Dist Completed Articular SR 04/06/2016 86643 Arthroscopy,Shoulder,Distal Claviculectomy Incl Dist Completed Articular SR 02/18/2016 67638 Inject/Drain Joint/Bursa Major W/O US Completed 01/25/2010 05647 Color Flow Doppler/Interp & Reprt Completed 01/25/2010 62911 Pulse Wave/Continuous-Interp.RPT Completed 01/25/2010 73569 ECHO Transthorasic Realtime 2D W Doppler & Color Flow Completed Hosp 01/25/2010 30015 EKG, Interpretation Only Completed 07/31/2009 78799 Treadmill Interp/Report Only Completed 07/31/2009 40486 Stress Test Supervsn W/Out I/R Completed Encounters Type Date Location Provider CPT E/M Dx Office Visit 08/10/2017 [facility] [place] [address] S46.012D 10:00a [facility] M19.212 S46.002D Office Visit 07/13/2017 9:00a [facility] [place] [address] S46.002D C.M.A. M19.212 S46.012D Office Visit 06/20/2017 1:45p [facility] [place] [address] S46.002D C.M.A. M19.212 S46.012D S46.012D Office Visit 04/14/2017 2:45p [facility] [place] [address] S46.002D C.M.A. M19.212 S46.012D S46.012D Office Visit 04/08/2017 1:28p [facility] [place], [address] R56.9 Assoc,pc [facility] Hospitalists R41.0 I10 G89.29 Office Visit 04/07/2017 9:13a [facility] [address] R40.4 R26.89 [facility] [address] R56.9 Assoc[facility]pc [facility] [facility] Hospitalists R41.0 I10 G89.29 Office Visit 04/06/2017 9:12a [facility] [address] R40.4 R26.89 Office Visit 04/06/2017 1:27p [facility] Maria Isabelbaltazar Long, [address] R56.9 Assoc,pc [employer] Hospitalists R41.0 I10 G89.29 Office Visit 04/05/2017 9:08a [facility] [address] R40.4 Office Visit 04/05/2017 1:26p [facility] Assoc,pc Osiris Salgado, [address] R56.9 Hospitalists N.P. R41.0 I10 Office Visit 04/04/2017 1:24p [facility] Assoc,pc Beronica Mustafa N.P. 23833 R56.9 Hospitalists R41.0 I10 G89.29 Office Visit 02/14/2017 2:45p [facility] [place] [address] S46.002D C.M.A. M19.212 S46.012D M54.2 Office Visit 01/11/2017 9:30a [facility] [address] R41.89 F07.81 R51 F41.8 Office Visit 12/15/2016 2:45p [facility] [place] [address] S46.002D C.M.A. M19.212 G90.512 S46.012D Office Visit 11/17/2016 3:00p [facility] [place] [address] S46.002D C.M.A. M19.212 G90.512 S46.012D M54.2 Office Visit 10/06/2016 2:00p [facility] [place] [address] M75.121 C.M.A. Office Visit 10/04/2016 3:30p [facility] [place] [address] S46.002D C.M.A. M19.212 G90.512 S46.012D M54.2 Office Visit 08/25/2016 2:30p [facility] [place] [address] M75.121 C.M.A. Office Visit 08/11/2016 3:00p [facility] [place] [address] M25.511 C.M.A. Office Visit 08/04/2016 1:30p [facility] [place] [address] M25.511 C.M.A. Office Visit 08/04/2016 1:30p [facility] [place] [address] S46.002D C.M.A. M19.212 G90.512 S46.012D Office Visit 08/01/2016 [facility] [address] S06.0x0A Assoc, Hospitalists F07.81 I10 G90.50 Office Visit 03/17/2016 1:45p [facility] [place] [address] S46.002A C.M.A. S46.002A S46.102A M19.212 S46.102A M19.212 Office Visit 02/18/2016 2:00p [facility] [place] [address] M54.2 C.M.A. S46.002A M19.212 Office Visit 01/14/2016 9:00a [facility] [place] [address] S46.002A C.M.A. M19.212 S46.102A M54.2 S46.002A Office Visit 12/15/2015 11:00a [facility] [place] [address] S46.002A Of C.M.A. S46.002A S63.502A S63.502A M75.92 S46.002A M75.92 Office Visit 01/07/2014 1:00p [facility] Javid Bright, 38413 847.2 [facility] Office Visit 07/29/2009 2:00a [facility],job Walter, [address]28[address] 786.50 Hospitalists [facility] Office Visit 07/28/2009 3:00a [facility], Case Walter, 88844 786.50 Hospitalists [facility] Plan of Care 09/25/2017 - Melanie Rodgers DOM54.5 Low back painG89.4 Chronic pain syndromeNew Medication:Diclofenac Sodium 1 %Comments:Try stretches for Piriformis CizfafwdH82 Essential (primary) qigiuhcyaydkC22.9 Type 2 diabetes mellitus without fwqiugoqsydnsA20.10 Factitious disorder, unspecified
--- NOTE | 2017-10-16 15:46 | ED ---
Head Injury - HPI Summary HPI Summary: patient is a 52-year-old female with a significant history of staring spells, confusion, memory loss, amnesia and seizure-like activity. She's been worked up several times for these issues, with no findings on EEG, CT scan, brain MRI or throughout her psychological assessments. On arrival she states she does not recall falling or hitting her head, however she endorses posterior scalp tenderness and she is confused at baseline. She recalls her name, but does not know where she is or what time it is. Also with history of chronic pain and she 's been on multiple pain medications for her back. LEVEL V CAVEAT DUE TO AMS. - History Of Current Complaint Chief Complaint: EDGeneral Stated Complaint: FALL Time Seen by Provider: 10/16/17 15:12 Hx Obtained From: Patient, EMS Hx From Patient Unobtainable Due To: Altered Mental Status Mechanism Of Injury: Other - Posterior scalp Onset/Duration: Started Hours Ago Onset of Pain: Immediate Severity Currently: Moderate Pain Intensity: 0 Pain Scale Used: 0-10 Numeric Location of Head Injury: Occipital Location: Discrete At: - posterior scalp Character: Throbbing Associated Signs And Symptoms: LOC (Time In Secs./Mins/Hrs) - unknown - Risk Factors SDH Risk Factor: Negative - Allergies/Home Medications Allergies/Adverse Reactions: Allergies Allergy/AdvReac Type Severity Reaction Status Date / Time aripiprazole [From Abilify] AdvReac Intermediate Talks funny Verified 09/21/17 11:50 Penicillins AdvReac Unknown Rash Verified 09/21/17 11:50 PMH/Surg Hx/FS Hx/Imm Hx Previously Healthy: Yes Endocrine/Hematology History: Reports: Hx Diabetes - type II, controlled with diet, Hx Anemia - not during Denies: Hx Anticoagulant Therapy, Hx Thyroid Disease Cardiovascular History: Reports: Hx Hypertension - uses medication, well controlled, Hx Syncope Denies: Hx Congestive Heart Failure, Hx Coronary Artery Disease, Hx Embolism , Hx Pacemaker/ICD Respiratory History: Denies: Hx Asthma, Hx Chronic Obstructive Pulmonary Disease (COPD) GI History: Reports: Hx Gastroesophageal Reflux Disease Denies: Hx Ulcer History: Denies: Hx Renal Disease Musculoskeletal History: Reports: Hx Arthritis, Hx Back Problems - chronic low back pain, Hx Orthopedic Injury - left rotator cuff tear/repair, Hx Tendonitis, Other Musculoskeletal History - podiatric surgery right foot Sensory History: Reports: Hx Contacts or Glasses - glasses Denies: Hx Deafness, Hx Hearing Aid Opthamlomology History: Reports: Hx Contacts or Glasses - glasses Neurological History: Reports: Hx Headaches, Hx Seizures, Other Neuro Impairments/Disorders - CHRONIC BACK PAIN Denies: Hx Dementia Psychiatric History: Reports: Hx Anxiety, Hx Depression, Hx Panic Disorder - ANXIETY Denies: Hx Eating Disorder, Hx of Violent Episodes Against Others, Hx Substance Abuse - Surgical History Surgery Procedure, Year, and Place: left rotator cuff repair Mar 2016 [facility], right rotator cuff repair 2010, right rotator cuff repair Mar 2017. [facility]ctions 1985,1987,1989 [facility]. Hysterectomy 1997 [facility]. Podiatric surgery right foot [facility] Hx Anesthesia Reactions: No - Immunization History Date of Tetanus Vaccine: UNK Date of Influenza Vaccine: UNK Hx Pertussis Vaccination: No Immunizations Up to Date: Unable to Obtain/Confirm Infectious Disease History: No Infectious Disease History: Denies: Hx Hepatitis, Hx Human Immunodeficiency Virus (HIV), Traveled Outside the [place] in Last 30 Days - Family History Known Family History: Positive: Cardiac Disease - mom , of [place] 71y.o., Other - sister, BRCA 46 y.o. - Social History Occupation: Unemployed, Disabled Lives: With Family Alcohol Use: None Hx Substance Use: No Substance Use Type: Reports: None Substance Use Comment - Amount & Last Used: hydrocodone Hx Tobacco Use: No Smoking Status (MU): Never Smoked Tobacco Have You Smoked in the Last Year: No Review of Systems - ROS Summary Review of Systems Summary: LEVEL V CAVEAT DUE TO AMS Constitutional: Negative Negative: Fever, Chills, Fatigue, Skin Diaphoresis Negative: Photophobia, Blurred Vision, Diplopia, Drainage Negative: Palpitations, Chest Pain Negative: Shortness Of Breath, Cough Genitourinary: Negative Positive: no symptoms reported, see HPI Skin: Negative Positive: Headache. Negative: Weakness, Paresthesia, Numbness, Syncope Negative: Anxious, Depressed All Other Systems Reviewed And Are Negative: Yes Physical Exam Triage Information Reviewed: Yes Vital Signs On Initial Exam: Initial Vitals Temp Pulse Resp BP Pulse Ox 97.6 F 81 16 128/74 98 10/16/17 15:15 10/16/17 15:15 10/16/17 15:15 10/16/17 15:15 10/16/17 15:15 Vital Signs Reviewed: Yes Appearance: Positive: Well-Appearing, No Pain Distress, Well-Nourished Skin: Positive: Warm, Skin Color Reflects Adequate Perfusion Head/Face: Positive: Normal Head/Face Inspection Eyes: Positive: EOMI, KYLAH, Conjunctiva Clear Neck: Positive: Supple, No Lymphadenopathy Respiratory/Lung Sounds: Positive: Clear to Auscultation, Breath Sounds Present Cardiovascular: Positive: RRR, Pulses are Symmetrical in both Upper and Lower Extremities Musculoskeletal: Positive: Normal, Strength/ROM Intact Neurological: Positive: Sensory/Motor Intact, Reflexes Intact, Speech Normal AVPU Assessment: Alert - Weare Coma Scale Best Eye Response: 4 - Spontaneous Best Motor Response: 6 - Obeys Commands Best Verbal Response: 4 - Confused Coma Scale Total: 14 Diagnostics - Vital Signs Vital Signs Temp Pulse Resp BP Pulse Ox 10/16/17 15:15 97.6 F 81 16 128/74 98 - Laboratory Lab Statement: Any lab studies that have been ordered have been reviewed, and results considered in the medical decision making process. Head Injury Course/Dx Course Of Treatment: On physical examination, there is no cephalohematoma, no other signs of head injury. Patient is confused on arrival. Disoriented. She knows her name, but is unable to tell me her birthdate, ureters, what time it is , where she is at currently or her roommates name. She does not recall the events. After reviewing her history is seems she has been seen here multiple times for the same complaint. She has fallen, hit her head and has sustained "amnesia". She has been worked up for this several times with no findings. This has included EEG, CT, MRI, psych consultation as well as neuro consultation. CT brain obtained which is negative for any acute findings. Discussed this with patient and brother. Patient states she continues to have a headache. We'll discharge at this time she is feeling improved and I've given her brain rest for a possible concussion. She is A&O 3 at this time. I believe she may have some component of factitious disorder vs psychosis d/t the multiple times she has been to the ED with similar complaints. Differential also includes fall with head injury secondary to chronic opioid use. - Diagnoses Differential Diagnosis/HQI/PQRI: Concussion With LOC, Concussion Without LOC, Other - factititious disorder, psychosis, malingering, opioid induced dementia/ confusion Provider Diagnoses: Head injury Discharge - Sign-Out/Discharge Documenting (check all that apply): Discharge/Admit/Transfer - Discharge Plan Condition: Stable Disposition: HOME Patient Education Materials: Concussion (ED) Referrals: Gera Nogueira MD [Primary Care Provider] - Additional Instructions: Brain rest as much as possible Drink plenty of fluids Tylenol for any headache - Billing Disposition and Condition Condition: STABLE Disposition: Home
--- NOTE | 2017-10-16 16:00 | RAD ---
INDICATION: Head injury. COMPARISON: Comparison is made with a prior CT of the brain from April 04, 2017. TECHNIQUE: Contiguous axial sections of the brain were obtained from the skull base to the vertex without contrast. FINDINGS: The ventricles, cisterns and sulci are within normal limits. No significant focal abnormality or mass effect is seen. There is no evidence for hemorrhage. No significant focal osseous abnormality is seen. The visualized portion of the paranasal sinuses and mastoid air cells appear clear. IMPRESSION: NO EVIDENCE FOR ACUTE INTRACRANIAL ABNORMALITY.
[2017-10-16 16:41] VITALS: BP 138/74
== END 2017-10-16 16:40 | disposition home or self-care (01) ==
LOC: ED 15:08
DX: S09.90XA Unspecified injury of head, initial encounter (principal); X58.XXXA Exposure to other specified factors, initial encounter; Y92.9 Unspecified place or not applicable; G89.29 Other chronic pain; E11.9 Type 2 diabetes mellitus without complications; I10 Essential (primary) hypertension; Z91.81 History of falling; Z79.899 Other long term (current) drug therapy; Z88.8 Allergy status to other drugs, medicaments and biological substances; Z88.0 Allergy status to penicillin
CPT/HCPCS: 70450; 99283

== ENCOUNTER 2018-02-16 06:10 | Observation (INO) | payer OTHER ==
--- NOTE | 2018-02-16 06:36 | ED ---
Altered Mental Status - HPI Summary HPI Summary: Pt BIBA as they were called by her brother who told them pt fell (unwitnessed) and needed assistance getting up. She has confusion since fall but brother reports she always has confusion after a fall and he was not terribly concerned about that part of her presentation. Pt admits to back pain and a h/o sciatica in the LLE - it is unclear if this caused her to fall as she does not remember - asked if she syncopized and she states she doesn't know. When asked if she his her head, she states "I don't know" but reports Lt sided head pain and the area is TTP - asked if she always has pain here and at first she said "I don't know" but as we talked it through, she admits she has not had pain when touching her scalp and applying her head scarf which she was wearing when she came in today. No other complaints although pt has a somewhat persistent dry cough throughout exam. ROS is limited d/t pt's presentation of confusion. Per EMS, pt lives w/ brother and possibly nephew as 2 men were in her residence today. There were also dogs in the home and per EMS pt made a comment about the dogs prior to leaving as they were barking. She appears confused to EMS as well however she is able to make certain connections such as when told she was going outside, she states "I need my coat". Upon arrival here, pt is confused about person, place and time. When asked what [place] When asked again about her specific city, she states, "I don't know...let me think about it." When asked her name, she appears confused and states "I don't know". 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 When asked if she has any pets such as cats or dogs, she said "I don't think". When asked if any other people were in her residence this morning aside from her brother, she states "no". Per EMS, pt is insulin dependent diabetic - BG on scene was 100. She is unaware of her routine glucose levels. She is also not aware that she takes heart medications - acts surprised when asked this question. States she sees one doctor - appears confused when asked if she sees a pain management doctor and denies recognizing his name. Pt has been here in the past with similar confusion. She has been evaluated via EEG (routine and video), MRI and has had neuro consult. 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 - History Of Current Complaint Chief Complaint: EDAltMentalStatus Stated Complaint: AMS Time Seen by Provider: 02/16/18 06:18 Hx Obtained From: Patient - Allergies/Home Medications Allergies/Adverse Reactions: Allergies Allergy/AdvReac Type Severity Reaction Status Date / Time aripiprazole [From Abilify] AdvReac Intermediate Talks funny Verified 02/16/18 06:17 Penicillins AdvReac Unknown Rash Verified 02/16/18 06:17 Home Medications: Home Medications Diclofenac Sodium 1 applic TOPICAL QID PRN 02/16/18 [History Confirmed 02/16/18] Metformin HCl 500 mg PO BEDTIME 02/16/18 [History Confirmed 02/16/18] Pregabalin [Lyrica] 50 mg PO TID 02/16/18 [History Confirmed 02/16/18] PMH/Surg Hx/FS Hx/Imm Hx Previously Healthy: No - notes indicate amnesia Endocrine/Hematology History: Reports: Hx Diabetes - type II, controlled with diet, Hx Anemia - not during Denies: Hx Anticoagulant Therapy, Hx Thyroid Disease Cardiovascular History: Reports: Hx Hypertension - uses medication, well controlled, Hx Syncope Denies: Hx Congestive Heart Failure, Hx Coronary Artery Disease, Hx Embolism , Hx Pacemaker/ICD Respiratory History: Denies: Hx Asthma, Hx Chronic Obstructive Pulmonary Disease (COPD) GI History: Reports: Hx Gastroesophageal Reflux Disease Denies: Hx Ulcer History: Denies: Hx Renal Disease Musculoskeletal History: Reports: Hx Arthritis, Hx Back Problems - chronic low back pain "sciatica" Lt, Hx Orthopedic Injury - left rotator cuff tear/repair, Hx Tendonitis, Other Musculoskeletal History - podiatric surgery right foot Sensory History: Reports: Hx Contacts or Glasses - glasses Denies: Hx Deafness, Hx Hearing Aid Opthamlomology History: Reports: Hx Contacts or Glasses - glasses Neurological History: Reports: Hx Headaches, Hx Seizures - EEG's normal, Other Neuro Impairments/Disorders - h/o multiple head injuries Denies: Hx Dementia Psychiatric History: Reports: Hx Anxiety, Hx Depression, Hx Panic Disorder - ANXIETY, Other Psychiatric Issues/Disorders - 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 Starkey 03/2017 eval Denies: Hx Eating Disorder, Hx of Violent Episodes Against Others, Hx Substance Abuse - Surgical History Surgery Procedure, Year, and Place: left rotator cuff repair Mar 2016 [facility], right rotator cuff repair 2010, right rotator cuff repair Mar 2017. CSections 1985,1987,1989 [facility]. Hysterectomy 1997 [facility]. Podiatric surgery right foot [facility] Hx Anesthesia Reactions: No - Immunization History Date of Tetanus Vaccine: UNK Date of Influenza Vaccine: UNK Infectious Disease History: No Infectious Disease History: Denies: Hx Hepatitis, Hx Human Immunodeficiency Virus (HIV), Traveled Outside the [place] in Last 30 Days - Family History Known Family History: Positive: Cardiac Disease - mom , of [place] 71y.o., Other - sister, BRCA 46 y.o. - Social History Lives: With Family - brother Alcohol Use: None Hx Substance Use: No Substance Use Type: Reports: None Substance Use Comment - Amount & Last Used: hydrocodone Hx Tobacco Use: No Smoking Status (MU): Never Smoked Tobacco Have You Smoked in the Last Year: No Review of Systems - ROS Summary Review of Systems Summary: Limited d/t confusion Constitutional: Other - LEVEL 5 CAVEAT - LIMITED ROS D/T PT'S CONFUSION Negative: Chest Pain Positive: Cough Positive: no symptoms reported Positive: Arthralgia Positive: Headache - Lt side scalp pain, Weakness - LLE pain/weakness (pt states this always hurts and is weak) All Other Systems Reviewed And Are Negative: No Physical Exam Triage Information Reviewed: Yes Vital Signs On Initial Exam: Initial Vitals Temp Pulse Resp BP Pulse Ox 97.6 F 80 20 137/91 100 02/16/18 06:11 02/16/18 06:11 02/16/18 06:11 02/16/18 06:11 02/16/18 06:11 Vital Signs Reviewed: Yes Appearance: Positive: Well-Appearing, No Pain Distress - lying on stretcher appears comfortable - no pain w/ transfer from EMS stretcher to bed; appears to have difficulty moving LLE when asked; lower lumbar spine and Lt SI TTP; does not appear fatigued or lethargic; she is able to follow commands, Well-Nourished Skin: Positive: Warm, Skin Color Reflects Adequate Perfusion, Dry - no erythema , no ecchymosis, no skin breakdown - hygiene intact Head/Face: Positive: Normal Head/Face Inspection - no hematoma, abrasions or lacs but is TTP over Lt scalp Eyes: Positive: Normal, EOMI, KYLAH - no photophobia, Conjunctiva Clear ENT: Positive: Hearing grossly normal, Pharynx normal - mucosa moist - atraumatic, TMs normal - no hemotympanum. Negative: Nasal drainage - no epistaxis Dental: Negative: Dental Fracture @, Abscess @ Neck: Positive: Supple, Nontender Respiratory/Lung Sounds: Positive: Clear to Auscultation, Breath Sounds Present , Other - dry cough throughout appt, no SOB. Negative: Rales, Rhonchi, Subcutaneous Emphysema, Stridor, Tracheal Deviation, Wheezes, Unable to speak in full sentences Cardiovascular: Positive: Normal, RRR, S1, S2. Negative: Murmur, Rub, Leg Edema Left, Leg Edema Right Abdomen Description: Positive: Nontender, Soft Bowel Sounds: Positive: Present Musculoskeletal: Positive: Limited @ - LLE- asked pt to perform SLR and she does not however when bottom of foot is stimulated for sensation, she abruptly withdraws LLE toward herself w/o weakness, Pain @ - lower back TTP as mentioned above Neurological: Positive: Sensory/Motor Intact, CN Intact II-III, Facial Symmetry , Speech Normal. Negative: Alert, Oriented to Person Place, Time, Pronator Drift Present Psychiatric: Positive: Other - calm but confused - this appears to be selective but difficult to say for sure Diagnostics - Vital Signs Vital Signs Temp Pulse Resp BP Pulse Ox 02/16/18 06:23 79 11 123/77 98 02/16/18 06:11 97.6 F 80 20 137/91 100 - Laboratory Result Diagrams: 02/16/18 06:49 02/16/18 06:49 Lab Statement: Any lab studies that have been ordered have been reviewed, and results considered in the medical decision making process. Altered Mental Statu Course/Dx - Course Course Of Treatment: Pt presents by ambulance after brother called w/ concern of her falling and not being able to get up. She has some confusion however he is not alarmed by this as he reports she develops confusoin after falling routinely. She is a poor historian during her stay, even when asked indirect questions that she would not appear to be gaining anything by answering with "I don't know" or "no". She appears comfortable lying in stretcher however has h/ o Lt LBP w/ sciatica (per pt and has been seen by Dr. Mckeon). She does not request pain control today. Furthermore, her ECG is remarkable for QT prolongation w/o electrolyte imbalance (worse than previous ECG on 04/04/2017). She does take medications that may trigger this however med rec is still pending pharmacy opening this morning (nursing aware). Her brain CT is w/o acute or chronic findings and CXR is w/o acute findings. Discussed case w/ Dr. Pinto who agrees to see pt. Pt stable during course of stay. - Diagnoses Provider Diagnoses: Unwitnessed fall, QT prolongation Discharge - Sign-Out/Discharge Documenting (check all that apply): Patient Departure - Discharge Plan Condition: Stable Disposition: ADMITTED TO [facility] - Billing Disposition and Condition Condition: STABLE Disposition: Admitted to [facility]
[2018-02-16 06:54] LABS: Urine Appearance Cloudy; Urine Blood Negative (Negative); Urine Color Yellow; Urine Ketones Negative (Negative); Urine Protein Negative (Negative); Urine Specific Gravity 1.014 (1.010-1.030); Urine Urobilinogen Negative (Negative)
[2018-02-16 07:03] LABS: ABS Basophils 0 10^3/ul (0-0.2); ABS Eosinophils 0.3 10^3/ul (0-0.6); ABS Lymphocytes 2.6 10^3/ul (1.0-4.8); ABS Monocytes 0.4 10^3/ul (0-0.8); ABS Neutrophils 4.5 10^3/ul (1.5-7.7); ABS Nucleated RBC 0 10^3/ul; Eosinophil % 3.2 % (0-6); Hematocrit 39 % (35-47); Hemoglobin 12.7 g/dl (12.0-16.0); Lymphocyte % 33.7 % (25-47); Mean Corpuscular HGB Conc 33 g/dl (31-36); Mean Corpuscular Hemoglobin 29 pg (27-31); Mean Corpuscular Volume 88 fL (80-97); Mean Platelet Volume 8.4 fL (7.4-10.4); Nucleated Red Blood Cells % 0.1; Platelet Count 288 10^3/ul (150-450); Red Blood Count 4.41 10^6/ul (4.00-5.40); Red Cell Distribution Width 13 % (10.5-15); White Blood Count 7.7 10^3/ul (3.5-10.8)
[2018-02-16 07:05] LABS: INR 0.85 (0.77-1.02)
[2018-02-16 07:21] LABS: EGFR Non-African American 51.8 (>60)
[2018-02-16] MEDS ORDERED: ALPRAZolam TAB* 0.5 MG PO PRN (09:04)
[2018-02-16] MEDS: Acetaminophen TAB* 325 MG PO PRN (10:29)
[2018-02-16] MEDS: Heparin VIAL(*) 5000 UNITS/ML VIAL (FIVE THOUSAND) SUBCUT SCH ×2 (11:37→21:21)
[2018-02-16] MEDS: Pregabalin CAP(*) 50 MG PO SCH ×2 (14:48→21:20)
[2018-02-16] MEDS: DULoxetine DR CAP* 60 MG CAP.DR PO SCH (21:20)
[2018-02-16] MEDS: Diltiazem CD CAP* 180 MG PO SCH (21:21)
[2018-02-16] MEDS: metFORMIN* 500 MG TAB PO SCH (21:21)
--- NOTE | 2018-02-16 22:19 | HP ---
CC: Dr. Nogueira * HISTORY AND PHYSICAL: DATE OF ADMISSION: 02/16/18 PRIMARY CARE PROVIDER: Dr. Nogueira. CHIEF COMPLAINT: Fall. HISTORY OF PRESENT ILLNESS: Ms. Brumfield is a 53-year-old female who reportedly fell at home. She was found by her brother. He needed help getting her up and therefore contacted EMS. The patient was subsequently brought to the emergency room for evaluation. In the ER, the patient is unable to provide any history whatsoever. She states "I don't know" or "I don't recall" or "I don't think so " to all of my questions. The only thing she is able to tell me is that she has back pain and left buttock pain. I did speak with the patient's primary care provider at the time of admission and he states that she has had episodes in the past where she has behaved in this manner. In fact, there was a hospitalization in March 2017 where a psychiatry consultation was obtained because of the patient stating "I don't know" or "I don't recall" to every single question. At that point, it was felt that the patient likely was suffering from a factitious disorder. PAST MEDICAL HISTORY: 1. Hypertension. 2. Type 2 diabetes - diet controlled. 3. Chronic back pain. 4. GERD. PAST SURGICAL HISTORY: 1. Rotator cuff surgery x2 on the left. 2. Rotator cuff surgery x1 on the right. 3. Right foot surgery. 4. Hysterectomy. 5. x3. MEDICATIONS: 1. Ambien 10 mg p.o. q.h.s. p.r.n. insomnia. 2. Relafen 750 mg p.o. b.i.d. p.r.n. spasm. 3. Lyrica 50 mg p.o. t.i.d. 4. Methocarbamol 1000 mg p.o. q.6 hours p.r.n. spasm. 5. Metformin 500 mg p.o. q.h.s. 6. Lisinopril 10 mg p.o. daily. 7. Diltiazem CD 180 mg p.o. twice daily. 8. Diclofenac 1 application topical 4 times daily p.r.n. pain. 9. Duloxetine DR 60 mg p.o. b.i.d. 10. Xanax 0.5 mg p.o. b.i.d. p.r.n. anxiety. ALLERGIES: ABILIFY and PENICILLIN. FAMILY HISTORY: Unknown from the patient, though previously the patient reported that her mother of a heart attack in her 70s and dad related to prostate cancer at the age of 54. SOCIAL HISTORY: The patient states that she does not know if she smokes or drinks. However, previous H and P indicates the patient does not smoke, drink or use recreational drugs. The patient reportedly is living with her brother. REVIEW OF SYSTEMS: Unobtainable from the patient. PHYSICAL EXAMINATION GENERAL: The patient is a well-developed, middle aged female, seen sitting up in the stretcher, in no acute distress. VITAL SIGNS: Blood pressure 118/86, pulse 80, respirations 18, temp 97.6, O2 sat 97% on room air. HEENT: Pupils are equal and round. Extraocular movements are intact. Oropharynx is clear. Oral mucosa is moist. There is no submandibular, cervical , or supraclavicular adenopathy. Thyroid is not enlarged. No thyroid nodules are noted. PULMONARY: Lungs are clear to auscultation bilaterally. CARDIAC: Normal S1, S2. Regular rate and rhythm. I do not appreciate any murmurs. ABDOMEN: Bowel sounds present. Abdomen is soft, nontender, nondistended. MUSCULOSKELETAL: There is no cyanosis or clubbing of the digits. There is full active range of motion of the upper extremities. Lower extremity range of motion is limited; however, I do not believe the patient is giving full effort. NEUROLOGIC: Cranial nerves II through XII are grossly intact. Sensation is intact to light touch throughout. Strength in the upper extremities, the patient does not give full effort on the left and appears to have functional left-sided weakness. Lower extremity strength, the patient again appears to have functional left-sided weakness of the left lower extremity. PSYCH: The patient is alert, she is behaving as if she is not oriented to anything. SKIN: Warm and dry. There are no rashes. DIAGNOSTIC STUDIES/LAB DATA: WBC 7.7, hemoglobin 12.7, hematocrit 39, platelets 288. INR 0.85. Sodium 138, potassium 3.5, chloride 104, CO2 24, BUN 16, creatinine 1.1, glucose 128, lactic acid 1.9, calcium 9.5. Magnesium 1.9, bilirubin 0.3, AST 15, ALT 13, alk phos 87. Troponin 0. Albumin 4.1. TSH 1.95. Urinalysis reveals cloudy urine with specific gravity of 1.014, but otherwise negative for signs of infection. Urine drug screen is positive for benzodiazepines. Negative for serum alcohol. EKG reveals normal sinus rhythm without any acute ST-T wave abnormalities. There is a prolonged QTC with a duration of 531. CT brain, no acute intracranial pathology. Chest x-ray, no active cardiopulmonary disease is noted. ASSESSMENT AND PLAN: Ms. Brumfield is a 53-year-old female with numerous medical problems including diabetes, hypertension, chronic back pain, and past diagnosis of factitious disorder, who presents to the emergency room after sustaining a fall at home. 1. Fall. The etiology behind this is not clear. This was not witnessed by the patient's brother. The patient is currently unable to tell me any relevant facts related to this. The patient will be admitted and observed on telemetry. A PT evaluation will be requested. If stable, the patient will be discharged home tomorrow. 2. Altered mental status. This is identical to the patient's presentation in March 2017. At the time of discharge, the patient had been evaluated by EEG , which was negative; MRI, which was unrevealing and was seen in consultation by Psychiatry who felt that the patient may have underlying factitious disorder and ultimately the patient was discharged to home with her daughter. We will provide supportive care at this point and monitor for any change in symptoms. 3. Diabetes. The patient will be maintained on her usual dose of metformin. 4. Hypertension. The patient will continue on Diltiazem CD twice daily. 5. Chronic pain. The patient will continue with her methocarbamol and Relafen. 6. Depression. Continue duloxetine. 5. DVT prophylaxis. According to the Adult Thrombosis Risk Factor Assessment guide, the patient has a total risk factor score of 2 making her moderate risk. She will be placed on heparin 5000 units subcutaneous q.12 hours 6. Code status is full. TIME SPENT: 65 minutes were spent admitting this patient. [id number]/CPS #: [id number] MTDD
[2018-02-17] MEDS: Acetaminophen TAB* 325 MG PO PRN ×4 (00:59→19:00)
[2018-02-17] MEDS ORDERED: Ondansetron INJ* 2 MG/ML VIAL IV PRN (01:46)
[2018-02-17] MEDS: Nabumetone TAB* 500 MG PO PRN (05:43)
[2018-02-17] MEDS: Methocarbamol TAB* 500 MG PO PRN ×2 (08:52→19:38)
[2018-02-17] MEDS: Diltiazem CD CAP* 180 MG PO SCH ×2 (08:53→20:39)
[2018-02-17] MEDS: DULoxetine DR CAP* 60 MG CAP.DR PO SCH ×2 (08:53→19:40)
[2018-02-17] MEDS: Lisinopril TAB* 10 MG PO SCH (08:53)
[2018-02-17] MEDS: Pregabalin CAP(*) 50 MG PO SCH ×3 (08:54→19:40)
[2018-02-17] MEDS: Heparin VIAL(*) 5000 UNITS/ML VIAL (FIVE THOUSAND) SUBCUT SCH ×2 (08:54→19:41)
--- NOTE | 2018-02-17 10:38 | PN ---
Subjective Date of Service: 02/17/18 Interval History: Pt is feeling better today. She states she is still somewhat cloudy in the head however. She states "you look familiar to me." I explained that we met yesterday. She feels she is ready to go home. PT saw her yesterday and said she still needed assistance with ambulation due to L leg weakness-will see if the patient can work with PT this AM prior to d/c home. Objective Active Medications: Acetaminophen (Tylenol Tab*) 650 mg PO Q4H PRN PRN Reason: PAIN Last Admin: 02/17/18 08:53 Dose: 650 mg Alprazolam (Xanax Tab*) 0.5 mg PO BID PRN PRN Reason: ANXIETY Diltiazem HCl (Cardizem Cd Cap*) 180 mg PO BID [facility] Last Admin: 02/17/18 08:53 Dose: 180 mg Duloxetine HCl (Cymbalta Cap*) 60 mg PO BID [facility] Last Admin: 02/17/18 08:53 Dose: 60 mg Heparin Sodium (Porcine) (Heparin Vial(*)) 5,000 units SUBCUT Q12HR [facility] Last Admin: 02/17/18 08:54 Dose: 5,000 units Lisinopril (Prinivil Tab*) 10 mg PO DAILY [facility] Last Admin: 02/17/18 08:53 Dose: 10 mg Metformin HCl (Glucophage*) 500 mg PO BEDTIME [facility] Last Admin: 02/16/18 21:21 Dose: 500 mg Methocarbamol (Robaxin Tab*) 1,000 mg PO Q6H PRN PRN Reason: SPASMS Last Admin: 02/17/18 08:52 Dose: 1,000 mg Nabumetone (Relafen Tab*) 750 mg PO BID PRN PRN Reason: PAIN Last Admin: 02/17/18 05:43 Dose: 750 mg Ondansetron HCl (Zofran Inj*) 4 mg IV Q8H PRN PRN Reason: NAUSEA Last Admin: 02/17/18 01:59 Dose: 4 mg Pregabalin (Lyrica Cap(*)) 50 mg PO TID [facility] Last Admin: 02/17/18 08:54 Dose: 50 mg Vital Signs - 8 hr 02/17/18 02/17/18 02/17/18 03:59 07:36 08:00 Temperature 98.0 F 98.3 F Pulse Rate 73 81 Respiratory 16 18 15 Rate Blood Pressure 128/83 125/80 (mmHg) O2 Sat by Pulse 100 99 Oximetry 02/17/18 02/17/18 08:52 08:54 Temperature Pulse Rate Respiratory 15 15 Rate Blood Pressure (mmHg) O2 Sat by Pulse Oximetry Oxygen Devices in Use Now: None Appearance: Middle aged female sitting up in bed, NAD Eyes: No Scleral Icterus Ears/Nose/Mouth/Throat: Mucous Membranes Moist Respiratory: Symmetrical Chest Expansion and Respiratory Effort, Clear to Auscultation Cardiovascular: NL Sounds; No Murmurs; No JVD, RRR, No Edema Abdominal: NL Sounds; No Tenderness; No Distention Extremities: No Clubbing, Cyanosis Skin: No Nodules or Sclerosis Neurological: - - more engaged in conversation today, oriented to situation, her daughter picking her up Result Diagrams: 02/16/18 06:49 02/16/18 06:49 Assess/Plan/Problems-Billing Ms Brumfield is a 53 yo F who has a h/o chronic back pain and L leg weakness ( likely functional), HTN and type II DM who presented to the ER after a fall and was found to be markedly confused though had previously been admitted for identical complaints and 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 - Patient Problems (1) Fall Current Visit: Yes Status: Acute Comment: Etiology unclear. Pt worked with PT and had deficits though per outpatient pain med notes and my exam, L leg weakness appears to be functional. She feels ready to go home today. Up and walk with PT or nursing prior to d/c. (2) Confusion Current Visit: Yes Status: Acute Code(s): R41.0 - DISORIENTATION, UNSPECIFIED SNOMED Code(s): 674863881 Comment: Better today. Likely factitious disorder per psych consult 03/2017 when she had an identical presentation. No work up done this admission. (3) HTN (hypertension) Current Visit: Yes Status: Acute Code(s): I10 - ESSENTIAL (PRIMARY) HYPERTENSION SNOMED Code(s): 15512927 Comment: BP controlled on home medication regimen. (4) Diabetes Current Visit: Yes Status: Chronic Code(s): E11.9 - TYPE 2 DIABETES MELLITUS WITHOUT COMPLICATIONS SNOMED Code(s): 17701823 Comment: Pt on metformin at home which was continued. Follow up with Dr. Nogueira outpatient for routine diabetic monitoring. (5) DVT prophylaxis Current Visit: Yes Status: Acute Code(s): ZGC9648 - SNOMED Code(s): 245040661 Comment: SQ heparin (6) Full code status Current Visit: Yes Status: Acute Code(s): Z78.9 - OTHER SPECIFIED HEALTH STATUS SNOMED Code(s): 450384222 Status and Disposition: d/c home today
[2018-02-17] MEDS: metFORMIN* 500 MG TAB PO SCH (19:39)
[2018-02-17] MEDS ORDERED: Senna TAB PO PRN (20:26)
[2018-02-17] MEDS ORDERED: Docusate CAP* 100 MG PO PRN (20:26)
[2018-02-17] MEDS ORDERED: Polyethylene Glycol 3350* 17 GM PACKET PO PRN (20:27)
[2018-02-18] MEDS: Acetaminophen TAB* 325 MG PO PRN ×2 (05:46→13:34)
[2018-02-18] MEDS: guaiFENesin LIQ* 100 MG/5 ML UDC PO PRN ×3 (05:47→18:22)
[2018-02-18] MEDS ORDERED: Omeprazole CAP* 20 MG PO SCH (07:30)
[2018-02-18] MEDS: Diltiazem CD CAP* 180 MG PO SCH ×2 (08:42→21:04)
[2018-02-18] MEDS: Lisinopril TAB* 10 MG PO SCH (08:43)
[2018-02-18] MEDS: Nabumetone TAB* 500 MG PO PRN (08:43)
[2018-02-18] MEDS: Pregabalin CAP(*) 50 MG PO SCH ×2 (08:43→13:34)
[2018-02-18] MEDS: DULoxetine DR CAP* 60 MG CAP.DR PO SCH ×2 (08:43→21:09)
[2018-02-18] MEDS: Heparin VIAL(*) 5000 UNITS/ML VIAL (FIVE THOUSAND) SUBCUT SCH ×3 (08:44→21:10)
[2018-02-18] MEDS: Methocarbamol TAB* 500 MG PO PRN (13:33)
[2018-02-18] MEDS: Omeprazole CAP* 20 MG PO SCH (15:52)
[2018-02-18] MEDS: Lidocaine PATCH 5%* 1 PATCH TRANSDERM SCH (15:53)
--- NOTE | 2018-02-18 16:58 | PN ---
Subjective Date of Service: 02/18/18 Interval History: Pt seen and examined. Meds and labs reviewed. Spoke and touched base with both pt and daughter. CC: Intermittent confusion and mental fogginess ROS: Denied ERICKSON/dizziness, F/C, N/V, CP, SOB, increased cough, sputum production , abd pain, diarrhea, constipation, dysuria, myalgias, arthralgias, throat pain , and new skin lesions. The rest of the 14 point ROS are unremarkable. PHYSICAL EXAM: GEN APPEARANCE: Awake, not in acute distress, slightly confused, oriented x3 HEENT: NC/AT, PERRLA, moist oral mucosa, (-) throat erythema NECK: Soft, supple, (-) cervical LAD, (-)JVD HEART: S1S2 WNL, RRR, No MRG CHEST: CTA, BL, GAE, No W/R/R ABD: Soft, ND/NT, NABS 4x Q EXT: No C/C/E SKIN: Warm to touch PSYCH: No active psychosis, hallucinations, depression, SI/HI Objective Active Medications: Acetaminophen (Tylenol Tab*) 650 mg PO Q4H PRN PRN Reason: PAIN Last Admin: 02/18/18 13:34 Dose: 650 mg Acetaminophen (Tylenol Tab*) 975 mg PO BID [facility] Alprazolam (Xanax Tab*) 0.5 mg PO BID PRN PRN Reason: ANXIETY Diltiazem HCl (Cardizem Cd Cap*) 180 mg PO BID [facility] Last Admin: 02/18/18 08:42 Dose: 180 mg Docusate Sodium (Colace Cap*) 100 mg PO DAILY PRN PRN Reason: CONSTIPATION Last Admin: 02/17/18 20:38 Dose: 100 mg Duloxetine HCl (Cymbalta Cap*) 60 mg PO BID [facility] Last Admin: 02/18/18 08:43 Dose: 60 mg Guaifenesin (Robitussin*) 5 ml PO Q4H PRN PRN Reason: COUGH Last Admin: 02/18/18 11:24 Dose: 5 ml Heparin Sodium (Porcine) (Heparin Vial(*)) 5,000 units SUBCUT Q12HR [facility] Last Admin: 02/18/18 08:44 Dose: 5,000 units Ibuprofen (Motrin Tab*) 400 mg PO Q6H PRN PRN Reason: PAIN Lidocaine (Lidoderm 5% Patch*) 1 patch TRANSDERM DAILY [facility] Last Admin: 02/18/18 15:53 Dose: 1 patch Lisinopril (Prinivil Tab*) 10 mg PO DAILY [facility] Last Admin: 02/18/18 08:43 Dose: 10 mg Metformin HCl (Glucophage*) 500 mg PO BEDTIME [facility] Last Admin: 02/17/18 19:39 Dose: 500 mg Methocarbamol (Robaxin Tab*) 1,000 mg PO Q6H PRN PRN Reason: SPASMS Last Admin: 02/18/18 13:33 Dose: 1,000 mg Nabumetone (Relafen Tab*) 750 mg PO BID PRN PRN Reason: PAIN Last Admin: 02/18/18 08:43 Dose: 750 mg Omeprazole (Prilosec Cap*) 20 mg PO DAILY@0730 [facility] Last Admin: 02/18/18 15:52 Dose: 20 mg Ondansetron HCl (Zofran Inj*) 4 mg IV Q8H PRN PRN Reason: NAUSEA Last Admin: 02/17/18 01:59 Dose: 4 mg Pharmacy Profile Note (Lidocaine Patch Remove*) 1 note N/A 2100 [facility] Polyethylene Glycol/Electrolytes (Miralax*) 17 gm PO DAILY PRN PRN Reason: CONSTIPATION Senna (Senokot Tab*) 1 tab PO BEDTIME PRN PRN Reason: CONSTIPATION Last Admin: 02/17/18 20:38 Dose: 1 tab Vital Signs - 8 hr 02/18/18 02/18/18 02/18/18 09:49 09:51 10:05 Temperature 97.9 F Pulse Rate 76 81 95 Respiratory 18 Rate Blood Pressure 109/68 120/76 115/79 (mmHg) O2 Sat by Pulse 99 99 Oximetry 02/18/18 02/18/18 02/18/18 11:05 13:33 13:34 Temperature 97.9 F Pulse Rate 75 Respiratory 18 16 16 Rate Blood Pressure 118/79 (mmHg) O2 Sat by Pulse 100 Oximetry 02/18/18 02/18/18 15:54 16:00 Temperature 97.2 F Pulse Rate 82 Respiratory 14 14 Rate Blood Pressure 113/80 (mmHg) O2 Sat by Pulse 98 Oximetry Oxygen Devices in Use Now: None Result Diagrams: 02/16/18 06:49 02/16/18 06:49 Assess/Plan/Problems-Billing Ms Brumfield is a 53 yo F who has a h/o chronic back pain and L leg weakness ( likely functional), HTN and type II DM who presented to the ER after a fall and was found to be markedly confused though had previously been admitted for identical complaints and 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 (4) Diabetes Current Visit: Yes Status: Chronic Code(s): E11.9 - TYPE 2 DIABETES MELLITUS WITHOUT COMPLICATIONS SNOMED Code(s): 28768143 Comment: Pt on metformin at home which was continued. Follow up with Dr. Nogueira outpatient for routine diabetic monitoring. (5) DVT prophylaxis Current Visit: Yes Status: Acute Code(s): AFA2783 - SNOMED Code(s): 959616074 Comment: -Will increase frequency of Heparin to q8H Status and Disposition: -For possible D/C in 1-2 days
[2018-02-18] MEDS: metFORMIN* 500 MG TAB PO SCH (21:09)
[2018-02-18] MEDS: Acetaminophen TAB* 325 MG PO SCH (21:09)
[2018-02-18] MEDS: Lidocaine Patch REMOVE* 1 NOTE MISC SCH (21:13)
[2018-02-19] MEDS: Ibuprofen TAB* 400 MG PO PRN (03:12)
[2018-02-19] MEDS: Heparin VIAL(*) 5000 UNITS/ML VIAL (FIVE THOUSAND) SUBCUT SCH ×3 (06:00→21:30)
[2018-02-19] MEDS: Omeprazole CAP* 20 MG PO SCH (06:42)
[2018-02-19 06:55] LABS: Hematocrit 42 % (35-47); Mean Corpuscular HGB Conc 33 g/dl (31-36); Mean Corpuscular Hemoglobin 29 pg (27-31); Mean Corpuscular Volume 87 fL (80-97); Mean Platelet Volume 8.5 fL (7.4-10.4); Platelet Count 330 10^3/ul (150-450); Red Blood Count 4.82 10^6/ul (4.00-5.40); Red Cell Distribution Width 13 % (10.5-15); White Blood Count 6.7 10^3/ul (3.5-10.8)
[2018-02-19 07:15] LABS: EGFR Non-African American 47.3 (>60)
[2018-02-19] MEDS: Acetaminophen TAB* 325 MG PO SCH ×2 (08:30→21:29)
[2018-02-19] MEDS: Diltiazem CD CAP* 180 MG PO SCH ×2 (08:30→21:32)
[2018-02-19] MEDS: DULoxetine DR CAP* 60 MG CAP.DR PO SCH ×2 (08:30→21:30)
[2018-02-19] MEDS: Lidocaine PATCH 5%* 1 PATCH TRANSDERM SCH (08:31)
[2018-02-19] MEDS: Lisinopril TAB* 10 MG PO SCH (08:31)
--- NOTE | 2018-02-19 09:46 | ECHO ---
Patient: ANGIE PETERS [facility] Rec#: [id number] : 1965 Date: 02/19/2018 Age: 53y Height: 157 cm / 61.8 in Weight: 72.58 kg / 160.0 lbs Sex: F BSA: 1.73 Room#: [facility] Admit Date#: 02/18/2018 Type: Inpatient Referring: Dheeraj Cavazos Reading: Massimo Chappell DO Garment Looper: Maria Isabel Carter RDCS CC: Gera Nogueira MD Transthoracic Echocardiogram Indication: Syncope BP: 115/79 HR: 80 Rhythm: NSR Findings History: HTN, DM, GERD. Technical Comments: The study quality is fair. Completed at 0930. Left Ventricle: The left ventricular chamber size is normal. There is no left ventricular hypertrophy. Global left ventricular wall motion and contractility are within normal limits. There is normal left ventricular systolic function. The estimated ejection fraction is greater than 65%. There is no consistent Doppler evidence of clinically significant diastolic dysfunction. Left Atrium: The left atrial chamber size is normal. Right Ventricle: The right ventricular chamber size and systolic function are within normal limits. Right Atrium: The right atrial cavity size is normal. Aortic Valve: The aortic valve is trileaflet. There is no evidence of aortic valve thickening. There is no evidence of aortic regurgitation. There is no evidence of aortic stenosis. Mitral Valve: The mitral valve leaflets are mildly thickened. There is a trace of mitral regurgitation. There is no evidence of mitral stenosis. Tricuspid Valve: The tricuspid valve leaflets are normal. There is trace tricuspid regurgitation. Unable to estimate the right ventricular systolic pressure. There is no tricuspid stenosis. Pulmonic Valve: The pulmonic valve appears normal. There is a trace pulmonic regurgitation. There is no pulmonic stenosis. Pericardium: There is no significant pericardial effusion. Aorta: There is no dilatation of the ascending aorta. There is no dilatation of the aortic arch. The aortic root is normal in size. Pulmonary Artery: The main pulmonary artery is not well visualized. Venous: The inferior vena cava appears normal in size. There is a greater than 50% respiratory change in the inferior vena cava dimension. Conclusions The left ventricular chamber size is normal. There is no left ventricular hypertrophy. Global left ventricular wall motion and contractility are within normal limits. There is normal left ventricular systolic function. The estimated ejection fraction is 65-70% The left atrial chamber size is normal. The right ventricular chamber size and systolic function are within normal limits. No significant valvular abnormalities are noted Compared to prior echo from 01/2010, no significant changes noted Measurements Name Value Normal Range RVIDd (AP) 2D 2.6 cm (0.9 - 2.6) RVDdMajor (2D) 3.6 cm (2.2 - 4.4) RAd ISD 4CH 4.8 cm (3.4 - 4.9) RA (A4C)W 4.1 cm (2.9 - 4.6) IVSd (2D) 1 cm (0.6 - 1) LVPWd (2D) 0.8 cm (0.6 - 1) LVIDd (2D) 3.9 cm (3.6 - 5.4) LVIDs (2D) 2.1 cm - LV FS (2D) 47 % (25 - 45) Aortic Annulus 2 cm (1.4 - 2.6) Ao root diameter (2D) 3.1 cm (2.1 - 3.5) Ascending Ao 3.1 cm (2.1 - 3.4) Aortic arch 2.5 cm (1.8 - 3.4) LA dimension (AP) 2D 3.1 cm (2.3 - 3.8) LAd ISD 4CH 5.2 cm (2.9 - 5.3) LA ISD 4CH W 3.5 cm (2.5 - 4.5) Name Value Normal Range LA ESV BP (A/L) index 27 ml/m2 - Name Value Normal Range MV E-wave Vmax 0.7 m/sec - MV deceleration time 187 msec - MV A-wave Vmax 0.6 m/sec - MV E:A ratio 1.2 ratio - LV septal e' Vmax 0.09 m/sec - LV lateral e' Vmax 0.1 m/sec - LV E:e' septal ratio 7.78 ratio - LV E:e' lateral ratio 7 ratio - Name Value Normal Range AV Vmax 1.5 m/sec - AV VTI 28.9 cm - AV peak gradient 9 mmHg - AV mean gradient 5 mmHg - LVOT Vmax 1.2 m/sec - LVOT VTI 22.3 cm - LVOT peak gradient 5 mmHg - LVOT mean gradient 3 mmHg - RORO Vmax 0.9 m/sec - Name Value Normal Range IVC diameter 1.1 cm - Name Value Normal Range PV Vmax 1.1 m/sec - PV peak gradient 5 mmHg -
[2018-02-19] MEDS: Nabumetone TAB* 500 MG PO PRN (14:37)
--- NOTE | 2018-02-19 15:40 | PN ---
Subjective Date of Service: 02/19/18 Interval History: Pt seen and examined. Meds and labs reviewed. Spoke and touched base with both pt and daughter. CC: Intermittent confusion and mental fogginess ROS: Denied ERICKSON/dizziness, F/C, N/V, CP, SOB, increased cough, sputum production , abd pain, diarrhea, constipation, dysuria, myalgias, arthralgias, throat pain , and new skin lesions. The rest of the 14 point ROS are unremarkable. PHYSICAL EXAM: GEN APPEARANCE: Awake, not in acute distress, oriented x3 HEENT: NC/AT, PERRLA, moist oral mucosa, (-) throat erythema NECK: Soft, supple, (-) cervical LAD, (-)JVD HEART: S1S2 WNL, RRR, No MRG CHEST: CTA, BL, GAE, No W/R/R ABD: Soft, ND/NT, NABS 4x Q EXT: No C/C/E SKIN: Warm to touch PSYCH: No active psychosis, hallucinations, depression, SI/HI Objective Active Medications: Acetaminophen (Tylenol Tab*) 650 mg PO Q4H PRN PRN Reason: PAIN Last Admin: 02/18/18 13:34 Dose: 650 mg Acetaminophen (Tylenol Tab*) 975 mg PO BID [facility] Last Admin: 02/19/18 08:30 Dose: 975 mg Alprazolam (Xanax Tab*) 0.5 mg PO BID PRN PRN Reason: ANXIETY Diltiazem HCl (Cardizem Cd Cap*) 180 mg PO BID [facility] Last Admin: 02/19/18 08:30 Dose: 180 mg Docusate Sodium (Colace Cap*) 100 mg PO DAILY PRN PRN Reason: CONSTIPATION Last Admin: 02/17/18 20:38 Dose: 100 mg Duloxetine HCl (Cymbalta Cap*) 60 mg PO BID [facility] Last Admin: 02/19/18 08:30 Dose: 60 mg Guaifenesin (Robitussin*) 5 ml PO Q4H PRN PRN Reason: COUGH Last Admin: 02/18/18 18:22 Dose: 5 ml Heparin Sodium (Porcine) (Heparin Vial(*)) 5,000 units SUBCUT Q8HR [facility] Last Admin: 02/19/18 14:37 Dose: 5,000 units Ibuprofen (Motrin Tab*) 400 mg PO Q6H PRN PRN Reason: PAIN Last Admin: 02/19/18 03:12 Dose: 400 mg Lidocaine (Lidoderm 5% Patch*) 1 patch TRANSDERM DAILY [facility] Last Admin: 02/19/18 08:31 Dose: 1 patch Lisinopril (Prinivil Tab*) 10 mg PO DAILY [facility] Last Admin: 02/19/18 08:31 Dose: 10 mg Metformin HCl (Glucophage*) 500 mg PO BEDTIME [facility] Last Admin: 02/18/18 21:09 Dose: 500 mg Methocarbamol (Robaxin Tab*) 1,000 mg PO Q6H PRN PRN Reason: SPASMS Last Admin: 02/18/18 13:33 Dose: 1,000 mg Nabumetone (Relafen Tab*) 750 mg PO BID PRN PRN Reason: PAIN Last Admin: 02/19/18 14:37 Dose: 750 mg Omeprazole (Prilosec Cap*) 20 mg PO DAILY@0730 [facility] Last Admin: 02/19/18 06:42 Dose: 20 mg Ondansetron HCl (Zofran Inj*) 4 mg IV Q8H PRN PRN Reason: NAUSEA Last Admin: 02/17/18 01:59 Dose: 4 mg Pharmacy Profile Note (Lidocaine Patch Remove*) 1 note N/A 2100 [facility] Last Admin: 02/18/18 21:13 Dose: 1 note Polyethylene Glycol/Electrolytes (Miralax*) 17 gm PO DAILY PRN PRN Reason: CONSTIPATION Last Admin: 02/19/18 06:42 Dose: 17 gm Senna (Senokot Tab*) 1 tab PO BEDTIME PRN PRN Reason: CONSTIPATION Last Admin: 02/17/18 20:38 Dose: 1 tab Vital Signs - 8 hr 02/19/18 02/19/18 07:52 11:30 Temperature 97.8 F 97.5 F Pulse Rate 85 87 Respiratory 18 18 Rate Blood Pressure 115/80 111/78 (mmHg) O2 Sat by Pulse 100 100 Oximetry Oxygen Devices in Use Now: None Result Diagrams: 02/19/18 06:21 02/19/18 06:21 Assess/Plan/Problems-Billing Ms Brumfield is a 53 yo F who has a h/o chronic back pain and L leg weakness ( likely functional), HTN and type II DM who presented to the ER after a fall and was found to be markedly confused though had previously been admitted for identical complaints and 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 - Patient Problems (1) Fall Current Visit: Yes Status: Acute Comment: -Etiology unclear -Unclear cause of LLE extremity weakness and why poor AROM of left ankle is present -Reviewed assessment of PT and poor AROM of left ankle is not due to fractures or dislocation per Xray -MRI of head, 2D echo, and BL carotid dopplers: NAD -EEG pending -Will await official eval by Neurology to see if EMG is needed or any further W/ U -Awaiting psych eval for possible Munchaussens vs factitious d/o -Pt reported by daughter to have intermittent falls and confusion at home and may either sustain a fracture and/or be readmitted for similar symptoms in a few daysruling out other medical possibilities other than psych (2) Confusion Current Visit: Yes Status: Acute Code(s): R41.0 - DISORIENTATION, UNSPECIFIED SNOMED Code(s): 246327041 Comment: -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 (4) Diabetes Current Visit: Yes Status: Chronic Code(s): E11.9 - TYPE 2 DIABETES MELLITUS WITHOUT COMPLICATIONS SNOMED Code(s): 62069779 Comment: Pt on metformin at home which was continued. Follow up with Dr. Nogueira outpatient for routine diabetic monitoring. (5) DVT prophylaxis Current Visit: Yes Status: Acute Code(s): IQC5791 - SNOMED Code(s): 065237248 Comment: -Will increase frequency of Heparin to q8H Status and Disposition: -For possible D/C in AM
[2018-02-19] MEDS: metFORMIN* 500 MG TAB PO SCH (21:29)
--- NOTE | 2018-02-19 21:29 | CONS ---
NEUROLOGY CONSULTATION NOTE: DATE OF CONSULT: 02/19/18 CONSULTING PROVIDER: Dr. Cavazos. REASON FOR CONSULT: Left lower extremity weakness, however, suspecting functional disorder. CHIEF COMPLAINT: Left leg weakness. HISTORY OF PRESENT ILLNESS: Ms. 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 Since then her left leg has been off. She has gait problems due to her left leg giving out. She complains of chronic low back pain radiating down the left buttocks area down to the left lateral leg. This is constant. Over the last four months, the symptoms have progressed. The pain is 8/10 in severity, dull and sharp like. She denied any impairment in her bowel or bladder functions. She denied any numbness or tingling sensation. The patient's main concern today is that her pain is not controlled. Dr. Cavazos had ordered an MRI of the brain without contrast today 02/19/18 that showed no acute intracranial abnormality. She had an EEG, which showed diffuse beta frequency, but she is on Xanax at home. She had a carotid ultrasound done and that showed no hemodynamically significant stenosis. I reviewed the patient 's MRI of the lumbar spine that was completed on 09/19/17. There is mild degenerative disc disease and facet osteoarthritis at the L4-5 and L5-S1 level with no evidence of spinal canal narrowing. She is being worked up for this pain at an outside clinic and reported that she has an EMG nerve conduction study scheduled on Monday. The patient also reports frequent falls with no loss of consciousness or head injury. PAST MEDICAL HISTORY: x3, left shoulder surgery, anxiety, depression , chronic pain syndrome, GERD, chronic low back pain, hypertension, type 2 diabetes. MEDICATIONS: 1. Ambien 10 mg p.o. q.h.s. p.r.n. for insomnia. 2. Relafen 750 mg p.o. twice a day for spasms. 3. Lyrica 50 mg p.o. t.i.d. 4. Methocarbamol 1000 mg p.o. every six hours for spasms. 5. Metformin 500 mg p.o. at night. 6. Lisinopril 10 mg daily. 7. Diltiazem 180 mg p.o. twice daily. 8. Diclofenac one application topical four times daily. 9. Duloxetine 60 mg p.o. twice daily. 10. Xanax 0.5 mg p.o. twice daily. ALLERGIES: ABILIFY and PENICILLIN. FAMILY HISTORY: No family history of stroke or seizures. SOCIAL HISTORY: The patient states that she does not smoke or drink. She denied any alcohol use. She denied any drug use. REVIEW OF SYSTEMS: A 14-point review of systems was obtained and otherwise negative except for what was mentioned in the HPI. PHYSICAL EXAM: Temperature 97.5, heart rate of 87, respiratory rate 18, oxygen saturation of 100%, blood pressure of 111/78. General: Well nourished, well developed, female in no acute distress. Head is normocephalic without any obvious abnormalities. Eyes: Conjunctivae/corneas are clear. Neck is supple and symmetrical with no carotid bruits. Lungs are clear to auscultation bilaterally. Cardiovascular: Regular rate and rhythm with normal S1, S2. Extremities: Normal range of motion with no cyanosis. Skin: No skin lesions or laceration. Psych: Affect is flat with low mood. Easy to establish rapport though. Neurological Examination: Mental status, she is awake, alert, oriented to person, place, time, and general circumstance. Cranial nerves: Normal confrontation testing. Pupils equal, round and reactive to light. Extraocular muscles are intact. No facial asymmetry. She is able to hear throughout the history process. Symmetrical palatal elevation. Normal strength and shoulder shrug. Tongue is symmetrical and midline without any fasciculation or atrophy. Motor: No abnormal movements or pronator drift. She has normal strength in all extremities except for give way activation of the left upper and left lower limbs. With encouragement and full effort, she was able to give me 5/5 strength in all four extremities. Reflexes/left, brachioradialis 2/2, biceps 2/2, triceps 2/2, patella 2/2, ankle 2/2, plantar flexor/flexor. Sensation is intact to light touch and pinprick however, when tested in the left lower extremity, she had patchy sensory loss in a non-dermatomal fashion. Coordination, normal [id number], rapid alternating movement. Gait: Bizarre antalgic astasia-abasia gait. DIAGNOSTIC STUDIES/LAB DATA: WBC 6.7, hemoglobin of 14, hematocrit is 42. Sodium is 136, potassium is 4.0, creatinine 1.19. Vitamin B12 is 467. ASSESSMENT: Ms. Alethea Brumfield is a 53-year-old female who has chronic low back pain who presents with increased falls and increased subjective left lower extremity weakness. On examination, she has no lateralizing signs. She has give way activation of the left upper and lower extremities. With encouragement , she has normal strength all throughout. She has no reflex asymmetry. She has patchy sensory deficits on the left lower extremity without any dermatomal distribution. She has an astasia-abasia gait. All reported findings are suggestive of a possible functional disorder. I reviewed the MRI of the lumbar spine, which shows mild degenerative disc disease without any severe foraminal disease. She has no sensory level of myelopathic signs to suggest cervical or thoracic cord lesion. The patient has an EMG nerve conduction study scheduled as an outpatient on Monday. From the Neurology standpoint, I do not recommend any further evaluation. We talked about fall precautions. I reassured the patient that her symptoms will get better with time. She will benefit from physical and cognitive behavioral therapy. She will be evaluated by Psychiatry. Defer pain control to the primary team. I encouraged her to discuss this with her primary care doctor. TIME SPENT: I spent a total of 70 minutes and greater than 50% of that was spent directly reviewing the medical chart, obtaining history, examining the patient, education and counseling, and discussing the treatment plan and prognosis as mentioned above. [id number]/[facility] #: [id number] TOYA
[2018-02-19] MEDS: Lidocaine Patch REMOVE* 1 NOTE MISC SCH (21:31)
[2018-02-20] MEDS: Heparin VIAL(*) 5000 UNITS/ML VIAL (FIVE THOUSAND) SUBCUT SCH (06:12)
[2018-02-20] MEDS: Ibuprofen TAB* 400 MG PO PRN (06:15)
--- NOTE | 2018-02-20 08:27 | EEG ---
ELECTROENCEPHALOGRAPHY: DATE OF SERVICE: 02/19/18 DATE READ: 02/19/18 ORDERED BY: Dr. Dheeraj Cavazos. CLINICAL PROBLEM: Ms. Alethea Brumfield is a 53-year-old female, who has episodes of confusion and freque nt falls. This EEG was obtained to evaluate for epileptiform abnormalities. MEDICATIONS: 1. Tylenol. 2. Cardizem. 3. Cymbalta. 4. Lidoderm. 5. . 6. Heparin. 7. Glucophage. 8. Prilosec. 9. Xanax. 10. Colace. 11. Robitussin. 12. Motrin. 13. . 14. Relafen. 15. Zofran. 16. MiraLAX. 17. Senokot. CLINICAL STATE: Awake. REPORT: The waking background showed appropriate organization with clearly defined anterior-posterio r voltage and frequency gradients. There was a well-defined posterior dominant rhythm of 13 Hz, whic h was symmetrical and showed normal reactivity. There were diffuse, low-voltage, faster beta frequen cy with ranges in the 16 to 18 Hz seen throughout the recording. Hyperventilation and photic stimula tion were not performed. Single-electrode EKG showed a normal sinus rhythm with a heart rate of 70 beats per minute. Throughout the recording, there are no epileptiform abnormalities. CLINICAL IMPRESSION: This is an essentially normal awake EEG with diffuse low- voltage beta frequenc y. Excessive beta can be seen in the setting of benzodiazepine or barbiturate use. There were no ep ileptiform discharges or electrographic seizures. Clinical correlation is recommended. [id number]/[facility] #: [id number]
[2018-02-20] MEDS: Omeprazole CAP* 20 MG PO SCH (08:39)
[2018-02-20] MEDS: DULoxetine DR CAP* 60 MG CAP.DR PO SCH (08:39)
[2018-02-20] MEDS: Lisinopril TAB* 10 MG PO SCH (08:40)
[2018-02-20] MEDS: Acetaminophen TAB* 325 MG PO SCH (08:40)
[2018-02-20] MEDS: Methocarbamol TAB* 500 MG PO PRN (08:40)
[2018-02-20] MEDS: Nabumetone TAB* 500 MG PO PRN (08:41)
[2018-02-20] MEDS ORDERED: Diltiazem CD CAP* 180 MG PO SCH (09:00)
[2018-02-20] MEDS: Lidocaine PATCH 5%* 1 PATCH TRANSDERM SCH (09:22)
[2018-02-20 12:49] VITALS: BP 113/76
--- NOTE | 2018-02-20 17:54 | CONS ---
CONSULTATION REPORT: DATE OF CONSULT: 02/20/18 ATTENDING PHYSICIAN: Dr. Geraldine Multani. CONSULTING PHYSICIAN: Dr. Jesse Starkey. REASON FOR CONSULT: Nonfocal neurological symptoms. SUBJECTIVE HISTORY: Psychiatry is asked to see this 53-year-old -[place] female with a history of depression and chronic pain who was admitted to the medical service for confusion and difficulty ambulating following an alleged fall at home. Since admission, the patient has had difficulty answering questions, appearing confused or with deficits in her memory. She has also complained of difficulty ambulating, but thus far, she has had a negative medical and neurological workup. The patient has had quite an extensive diagnostic regimen since being here, having gone through both CT and MRI of her brain and EKG, EEG, echocardiogram, carotid Doppler, chest and spinal x-rays. She has also had physical and neurological examinations by the medical and neurology services. I did read the neurology report, which suggested that the patient's deficits are functional and perhaps related to a factitious disorder. I should note that this patient was evaluated by this clinician on 04/05/17 and at that time, she presented with very similar symptoms. My opinion at the time was that the patient's symptoms were best understood as factitious, meaning volitionally manufactured by the patient with the unconscious intention to experience so-called "primary gain", or nurturance from caregivers. Upon presentation today, the patient is largely vague and somewhat dismissive when I enter the room. She is insisting to me that her ankle is better and that she has been able to ambulate several times so far this morning with minimal assistance. I confirmed this with nursing staff. She also denies any cognitive or memory problems and states that her daughter is already on her way to the hospital to pick her up. The patient is not interested in any further psychiatric evaluation and most of this history is taken from my previous interview of her back in March of last year. PSYCHIATRIC HISTORY: The patient denies any psychiatric hospitalizations. She denies any history of suicidal behavior or homicidality. She does indicate that her outpatient primary care provider, Dr. Nogueira, at the [facility] continues to treat her for depression. I note from her med list that she continues to take Cymbalta, Xanax, and Ambien. It appears that at one point, she was evaluated by a local psychiatrist, Dr. Pérez Smith, who prescribed Abilify, but she had some type of allergic reaction to this and never went back to him for any further consultation. She denies any history of traumatic events , abuse, or neglect. She states that she has had a lifetime total of 3 separate concussions. SUBSTANCE ABUSE HISTORY: The patient denies illicit drugs, tobacco, or alcohol abuse. MEDICAL HISTORY: Significant for hypertension, type 2 diabetes, chronic back pain, section x3, hysterectomy, gastroesophageal reflux disease, history of right foot surgery, history of 2 rotator cuff surgeries. MEDICATIONS PRIOR TO HOSPITALIZATION: Included: 1. Ambien 10 mg nightly. 2. Relafen 750 mg b.i.d. 3. Lyrica 50 mg 3 times daily. 4. Robaxin 1000 mg every 6 hours as needed for pain. 5. Metformin 500 mg nightly. 6. Lisinopril 10 mg daily. 7. Cardizem CD 180 mg p.o. b.i.d. 8. Diclofenac topical ointment 4 times daily as needed. 9. Cymbalta 60 mg p.o. b.i.d. 10. Xanax 0.5 mg twice daily as needed for anxiety. ALLERGIES: She is allergic to PENICILLIN and ARIPIPRAZOLE. FAMILY HISTORY: She indicates that she has a brother who has been diagnosed with clinical depression. She is unaware of any suicide attempts in her family. SOCIAL HISTORY: The patient grew up in [place], graduated high school. She does have three children and two grandchildren. 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 Apparently, she has been on Workmen's comp in the past and has been pursuing disability. Currently , she is single and not in a relationship. She is heterosexual and has no known legal history. MENTAL STATUS EXAM: The patient is a middle-aged -[place] female who is wearing bandana on her head and eyeglasses. She is lying propped up in a medical bed under her covers. She makes good eye contact. She is calm, cooperative, somewhat difficult to establish a rapport with and appears to be somewhat suspicious of this observer and dismissive. Her speech is halting at times, but she will answer questions. Mood is euthymic with the full affect. Thought process appears to be linear and goal directed. Thought content is significant for her desire to be discharged from the hospital. She denies suicidal or homicidal ideations. She denies auditory or visual hallucinations. There is no evidence of paranoia or delusions. Insight and judgment appeared to be poor given the fact that she has likely been producing or exaggerating symptoms. Cognitively, she is awake and alert with what would appear to be an average intellect. DIAGNOSES: [place] I: Factitious disorder, Major depressive disorder by history. [place] II: Deferred. ASSESSMENT: The patient is a 53-year-old -[place] female with a history of depression, chronic pain, and documented factitious disorder who now returns to the medical service with an episode that is strikingly similar to that which hospitalized her 1 year ago in March, similar to that experience she has undergone an extensive medical and neurological workup that has not found any physiological explanations for her symptoms. It does appear that this patient has a tendency to seek the sick role when stressed, it would appear that her symptoms continued to be feigned and exaggerated. At this point , her symptoms seem to have resolved spontaneously, which is not unusual in Factitious Disorder. She is looking for discharge to home, which Psychiatry is in support of. RECOMMENDATIONS TO PRIMARY TEAM: The patient is not suicidal nor homicidal and I do not believe the psychiatric inpatient care is warranted. Factitious disorder is typically treated in the outpatient setting with psychotherapy, although the patient is not interested in this at time. She does see her primary care provider for treatment for depression and will continue on duloxetine. No further psychiatric workup is warranted at this time and Psychiatry will be signing off the case. She is psychiatrically cleared for discharge. Thank you for the interesting consult. [id number]/[facility] #: [id number] TOYA
--- NOTE | 2018-02-21 07:23 | DS ---
CC: Dr. Nogueira; Dr. Starkey; Dr. Astorga.* DISCHARGE SUMMARY: DATE OF ADMISSION: 02/16/18 DATE OF DISCHARGE: 02/20/18 PRIMARY CARE PROVIDER: Dr. Nogueira. DISCHARGE DIAGNOSES: Confusion and subsequent development of left leg weakness that is likely factitious behavior. SECONDARY DIAGNOSES: 1. History of chronic pain. 2. History of diabetes, type 2. 3. Hypertension. 4. Gastroesophageal reflux disease. CONSULTATIONS DURING THE HOSPITAL STAY: Include Dr. Starkey from Psychiatry; Dr. Astorga from Neurology. LABORATORY DATA AND STUDIES PERFORMED DURING THE HOSPITAL STAY: Included on 03/27, white blood cell count of 6.7, hemoglobin of 14.0, hematocrit of 42, and platelets of 330. Sodium was 136, potassium 1.0, chloride 102, carbon dioxide 25, BUN 18, creatinine 1.19. Liver function is unremarkable. Troponin 0 throughout the hospital stay. TSH level of 1.95. Vitamin B12 level of 467. Transthoracic echocardiogram obtained on 02/18/18, showed the EF of 65% to 70% with no significant valvular abnormalities and no LVH. Carotid Doppler studies show no hemodynamically significant stenosis of either carotid artery. Brain MRI obtained on 02/19/18. Impression: "Mild sinus mucosal inflammatory disease without air-fluid level to suggest acute sinusitis. Otherwise, unremarkable MRI of the brain. No to suggest acute infarcts." Lumbar spine x-ray performed on 02/16/18. Impression: "Unremarkable photographs of the lumbar spine." HOSPITALIZATION COURSE: Mrs. Brumfield is a 53-year-old female with history of diabetes and chronic sciatica who presented to the hospital with confusion and left leg weakness and the patient was hospitalized in March 2017, where a psychiatry consultation was obtained and it was noted at that point the patient was suffering from factitious disorder. During the patient's current hospital stay, the patient underwent extensive workup including Neurology consult, MRI of the brain as well as psychiatric consult. The conclusion of this patient's hospital stay is also that the patient is suffering from factitious disorder. By the time of discharge, the patient was able to ambulate without support, reporting still mild left leg weakness. Her mental state was back to her baseline by the time of discharge. The patient is recommended to follow up with primary care provider in 4 to 7 days. DISCHARGE MEDICATIONS: The patient's outpatient medications were not changed at the time of discharge and included: 1. Xanax 0.5 mg b.i.d. p.r.n. 2. Voltaren gel 1 application up to 4 times a day to affected area. 3. Cardizem CD 180 mg b.i.d. 4. Cymbalta 60 mg b.i.d. 5. Lisinopril 10 mg daily. 6. Metformin 500 mg at bedtime. 7. Robaxin 1000 mg every 6 hours p.r.n. 8. Relafen 750 mg b.i.d. p.r.n. 9. Lyrica 50 mg 3 times a day. 10. Ambien 10 mg at bedtime. PHYSICAL EXAMINATION: At the time of discharge, blood pressure of 131/82, heart rate of 93 and regular, respiratory rate 16, oxygen saturation 100% on room air, temperature 97.9. General: The patient is a very pleasant 53-year- old female, who is in no acute distress. Alert, awake, and oriented x3. HEENT : Head: Atraumatic, normocephalic. Eyes: Pupils are equal, reactive to light and accommodation. Oropharynx is clear. Mucosa moist. Neck: Supple. No JVD. No bruits bilaterally. Cardiovascular: Regular rate and rhythm. No murmur. Respiratory: Clear to auscultation bilaterally. Abdomen: Soft, nontender. Bowel sounds are present in all 4 quadrants. Extremities: There is no edema. Pulses are +2 bilaterally. No clubbing or cyanosis. On neuro evaluation, speech is clear. Cranial nerves II through XII are grossly intact. Motor strength is 5/5 bilaterally in upper extremities. The patient does have problems with straight leg raise on the left side. She is able to hold it with what appears to be equal strength of the right side and equal time, but she refuses to raise it more than 20 degrees or so from the bed. There is no limit on bilateral feet plantar and dorsiflexion and motor strength of that on evaluation. Sensation is grossly intact throughout. Psychiatric evaluation: Alert and oriented x3. Pleasant and cooperative with evaluation, but no evidence of anxiety depression. Please note that this is a short summary of the patient's hospitalization, please refer to further medical records for details. TIME SPENT: Approximately 35 minutes was spent on the patient's discharge. [id number]/[facility] #: [id number] TOYA
== END 2018-02-20 13:25 | disposition home or self-care (01) ==
LOC: ED 06:10 → MEDTELE 08:48
PROVIDERS: ADMIT Hospitalist; ATTEND Internal Medicine
DX: R41.0 Disorientation, unspecified (principal); R53.1 Weakness; G89.29 Other chronic pain; E11.9 Type 2 diabetes mellitus without complications; I10 Essential (primary) hypertension; K21.9 Gastro-esophageal reflux disease without esophagitis; Z91.81 History of falling
CPT/HCPCS: 36415; 70450; 70551; 71046; 72100; 80053; 80307; 80320; 80329; 81003; 82140; 82550; 82607; 83605; 83735; 83921; 84100; 84443; 84484; 85025; 85027; 85610; 93005; 93306; 93880; 95816; 96374; 96375; 96376; 99284; A9270-GY; G0378; G0480; G8978-GP-CK; G8978-GP-CL; G8979-GP-CI; G8979-GP-CJ; J1644; J2405

== ENCOUNTER 2019-08-06 17:40 | Emergency (ER) | payer OTHER ==
[2019-08-06 19:05] VITALS: BP 135/104
[2019-08-06] MEDS ORDERED: Albuterol HFA INHALER 8 gm MDI INH ONE (19:05)
== END 2019-08-06 19:50 | disposition home or self-care (01) ==
LOC: UCEAST 17:40